=== PATIENT | male | born 1955 | race Caucasian/White ===

== ENCOUNTER 2022-09-30 07:10 | Outpatient (OUT) | payer OTHER, SELFPAY ==
[2022-09-30 08:20] LABS: Creatinine Urine Random 194.69 mg/dL (20.00-300.00); Microalbum Creatinine Ratio Ur 18.4 mg/g (0.0-29.9); Microalbumin Urine Random 3.6 mg/dL (<=30.0)
[2022-09-30 08:25] LABS: Alanine Aminotransferase 29 U/L (16-63); Albumin Globulin Ratio 1.1; Albumin Level 3.9 g/dL (3.4-5.0); Alkaline Phosphatase 54 U/L (46-116); Aspartate Amino Transferase 20 U/L (15-37); Bilirubin Direct 0.1 mg/dL (0.0-0.2); Bilirubin Total 0.4 mg/dL (0.2-1.0); Globulin 3.7 g/dL; Total Protein 7.6 g/dL (6.4-8.2)
[2022-10-01 13:09] LABS: C-Peptide, Serum 0.1 ng/mL (1.1-4.4)
== END 2022-09-30 07:11 ==
PROVIDERS: PCP Family Medicine; Visit Provider Internal Medicine
DX: E11.49 Type 2 diabetes mellitus with other diabetic neurological complication (principal); Z79.4 Long term (current) use of insulin; E55.9 Vitamin D deficiency, unspecified
CPT/HCPCS: 36415; 80076; 82043; 82306; 82570; 84681

== ENCOUNTER 2023-01-19 07:10 | Outpatient (OUT) | payer OTHER, SELFPAY ==
[2023-01-19 07:59] LABS: Alanine Aminotransferase 20 U/L (16-63); Albumin Globulin Ratio 1.1; Albumin Level 3.6 g/dL (3.4-5.0); Alkaline Phosphatase 53 U/L (46-116); Anion Gap 9.5; Aspartate Amino Transferase 12 U/L (15-37); BUN Creatinine Ratio 13.1; Bilirubin Total 0.3 mg/dL (0.2-1.0); Calcium 8.8 mg/dL (8.5-10.1); Chloride 100 mmol/L (98-107); Chol HDL Ratio 2.6; Cholesterol 123 mg/dL (<=200); Estimated GFR (African America >60 (>=60); Estimated GFR (Non-African Ame 59 (>=60); Globulin 3.3 g/dL; Glucose 261 mg/dL (74-106); HDL Cholesterol 48 mg/dL (40-60); LDL Cholesterol Calculated 64.8 mg/dL; Potassium 4.5 mmol/L (3.5-5.1); Sodium 135 mmol/L (136-145); Total Protein 6.9 g/dL (6.4-8.2); Triglycerides 51 mg/dL (<=150); VLDL CHOLESTEROL 10.2 mg/dL
== END 2023-01-19 07:11 | disposition home or self-care (01) ==
LOC: LAB 07:12
PROVIDERS: PCP Family Medicine; Visit Provider Internal Medicine Interventional Cardiology
DX: I25.10 Atherosclerotic heart disease of native coronary artery without angina pectoris (principal)
CPT/HCPCS: 36415; 80053; 80061

== ENCOUNTER 2023-01-30 19:35 | Emergency (ER) | payer OTHER, SELFPAY ==
[2023-01-30 19:48] VITALS: BP 152/86; PULSE 78; RESP 18; TEMP 37.3; O2SAT 96; BMI 26.5
[2023-01-30 19:54] VITALS: PULSE 73
--- NOTE | 2023-01-30 20:01 | ECG_ITS ---
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
--- NOTE | 2023-01-30 20:01 | XR_ITS ---
The [address] [address] Patient Name: BRODY WEST MRN: [id number] date: 1955 Sex: M Assigned Patient Location: ER Current Patient Location: ER Accession/Order Number: [id number] Exam Date: 01/30/2023 21:20 Report Date: 01/30/2023 21:34 At the request of: AYALA JOHNSON Procedure: XR chest 1V EXAM: XR chest 1V HISTORY: sob COMPARISON: None. TECHNIQUE: Single AP radiograph of the chest FINDINGS: Linear opacities at the lung bases favored to represent atelectasis. No pneumothorax or effusion. Mild cardiac prominence. No acute osseous abnormality. XR/XR chest 1V IMPRESSION: Linear bibasilar opacities favored to represent atelectasis. Otherwise, no acute cardiopulmonary process. Electronically authenticated by: VAN LANGLEY Date: 01/30/2023 21:34
--- NOTE | 2023-01-30 20:02 | ED.GENADUL1 ---
HPI - General Adult General Chief complaint: Shortness of Breath/Dyspnea Stated complaint: sob covid + Time Seen by Provider: 01/30/23 19:45 Source: patient Mode of arrival: walk-in Limitations: no limitations History of Present Illness HPI narrative: 68-year-old male to the emergency department she complained of mild shortness of breath after developing Coban. He reports symptoms started forty-eight hours ago. Patient reports he is vaccinated ?6 for COVID. He reports that he has malaise, body aches, low-grade fever, cough, sinus pressure, nasal congestion. He reports that he has a aching pain throughout his chest is worse when coughing or deep inspiration. He denies Asthma or chronic obstructive pulmonary disease. He reports he is currently in cardiac rehab, no stent or cardiac intervention in the past. Related Data Home Medications Medication Instructions Recorded Confirmed azelastine 137 mcg (0.1 %) nasal intranasal 01/30/23 spray aerosol ezetimibe 10 mg tablet mg 01/30/23 insulin aspart U-100 100 unit/mL subcut 01/30/23 (3 mL) subcutaneous pen (Novolog FlexPen U-100 Insulin aspart) insulin detemir U-100 100 unit/mL 1 unit subcut DAILY 01/30/23 01/30/23 (3 mL) subcutaneous pen (Levemir FlexPen) metformin 500 mg tablet mg 01/30/23 tadalafil 5 mg tablet mg 01/30/23 Allergies Allergy/AdvReac Type Severity Reaction Status Date / Time No Known Drug Allergies Allergy Verified 01/30/23 19:52 Review of Systems ROS Status of ROS 10 or more systems reviewed and unremarkable except as noted in history and below [facility] Social History Smoking status: Never smoker Exam Narrative Exam Narrative: VITALS: I have reviewed the triage vital signs. GENERAL: Well developed, well appearing adult in no acute distress. NEURO: Alert and oriented. Moves all extremities. Face is symmetric and expressive. EYES: PERRL. No scleral icterus or conjunctival injection. No discharge. HENT: Normocephalic, atraumatic. Hearing is grossly intact. Nares grossly patent and without discharge. Mucous membranes moist. NECK: No JVD. Patient moves neck without restriction. CARDIO: Rhythm regular. Normal rate. No murmur, rub, or gallop. Pulses equal bilaterally in the upper and lower extremity. No lower extremity edema. PULM: Lungs clear to auscultation in all wells. No wheezes, rales, or rhonchi. No conversational dyspnea. No splinting, stridor, or accessory muscle use. GI/: Abdomen is soft and non-tender. Normoactive bowel sounds. EXTREMITIES: Symmetric muscle bulk. No joint swelling. No clubbing, cyanosis, or deformity. SKIN: Warm and dry. Normal turgor. No rash or lesions appreciated. PSYCH: Mood, affect, and interaction is appropriate to the setting. Constitutional Vital Signs, click to edit/add: Last Vital Signs Temp 98.9 F 01/30/23 22:00 Pulse 69 01/30/23 22:00 Resp 20 01/30/23 22:00 BP 147/80 H 01/30/23 22:00 Pulse Ox 95 01/30/23 22:00 O2 Del Method Room Air 01/30/23 22:00 Course Vital Signs Vital signs: Vital Signs Temperature 99.2 F 01/30/23 19:48 Pulse Rate 78 01/30/23 19:48 Respiratory Rate 18 01/30/23 19:48 Blood Pressure 152/86 H 01/30/23 19:48 Pulse Oximetry 96 01/30/23 19:48 Temperature 98.9 F 01/30/23 22:00 Pulse Rate 69 01/30/23 22:00 Respiratory Rate 20 01/30/23 22:00 Blood Pressure 147/80 H 01/30/23 22:00 Pulse Oximetry 95 01/30/23 22:00 Oxygen Delivery Method Room Air 01/30/23 22:00 Medical Decision Making [facility] Narrative Medical decision making narrative: [facility] Data External documents reviewed: Not applicable My EKG interpretation: Interpreted as below My CT interpretation: Not applicable My X-ray interpretation: Reviewed, as well as bulla My Ultrasound interpretation: Not applicable Decision rules/scores evaluated: Not applicable Discussed with: Not applicable Treatment and Disposition ED Course: Appearing 68-year-old male to the emergency department with chief complaint of shortness of breath, flulike symptoms in the setting of recent cocaine-positive status. Vital stable, patient is afebrile. He is in no respiratory distress. His lungs are clear. We'll obtain basic labs, cardiac enzymes, chest x-ray. EKG is without any ischemic changes. I believe his symptoms are consistent with pneumonitis. Patient agrees with this plan. Troponin and repeat are both negative. As a hyponatremia. He is hyperglycemic without evidence of DKA. Chest x-ray without acute findings. Patient remained in no respiratory distress. He feels much improved after fluids. I believe is appropriate for outpatient follow-up with his doctor. We discussed the risks and benefits of Paxlovid. He decided against it at this time. Return impressions were discussed. I would like his sodium checked again early next week to make sure that is not decreasing. He will manage his blood glucose per his usual protocol at home. Return precautions were discussed. All questions were answered. The patient was discharged home. Shared decision making: As above Code status: Not addressed during this visit Medical Records Medical records reviewed: Yes I reviewed the patient's medical records Lab Data Lab results reviewed: Yes I reviewed the patient's lab results Labs: Lab Results 01/30/23 01/30/23 Range/Units 20:12 22:15 WBC 4.2 (4.0-11.0) 10^3/uL RBC 3.87 L (4.70-6.10) 10^6/uL Hgb 12.1 L (14.0-18.0) g/dL Hct 36.0 L (42.0-54.0) % MCV 93.0 (80.0-94.0) fL MCH 31.3 (25.9-34.0) pg MCHC 33.6 (29.9-35.2) g/dL RDW 12.3 (11.0-15.0) % Plt Count 208 (150-450) 10^3/uL MPV 10.0 (9.5-13.5) fL Neut % (Auto) 68.0 (43.0-75.0) % Lymph % (Auto) 14.2 L (20.5-60.0) % [place] % (Auto) 15.4 H (1.7-12.0) % Eos % (Auto) 1.2 (0.9-7.0) % Baso % (Auto) 0.7 (0.2-2.0) % Neut # (Auto) 2.8 (1.4-6.5) 10^3/uL Lymph # (Auto) 0.6 L (1.2-3.8) 10^3/uL [place] # (Auto) 0.6 (0.3-0.8) 10^3/uL Eos # (Auto) 0.1 (0.0-0.7) 10^3/uL Baso # (Auto) 0.0 (0.0-0.1) 10^3/uL Abs Immat Gran (auto) 0.02 (0.00-0.03) 10^3/uL Imm/Tot Granulo (auto) 0.5 (0.0-0.5) % Sodium 128 L (136-145) mmol/L Potassium 3.8 (3.5-5.1) mmol/L Chloride 96 L (98-107) mmol/L Carbon Dioxide 28.4 (21.0-32.0) mmol/L Anion Gap 7.4 BUN 9.0 (7.0-18.0) mg/dL Creatinine 1.13 (0.70-1.30) mg/dL Est GFR ( Amer) >60 (>=60) Est GFR (Non-Af Amer) >60 (>=60) BUN/Creatinine Ratio 8.0 Glucose 257 H (74-106) mg/dL Calcium 8.0 L (8.5-10.1) mg/dL Troponin I High Sens 11.9 12.1 (4.0-76.1) pg/mL ECG Data Attestation: I personally reviewed and interpreted this ECG as follows: (Normal sinus rhythm at a rate of seventy-three. No STEMI. No acute ischemic changes. Normal QTC.) Discharge Plan Discharge Chief Complaint: Shortness of Breath/Dyspnea Clinical Impression: COVID-19, Acute hyperglycemia, Acute hyponatremia Patient Disposition: Home, Self-Care Time of Disposition Decision: 23:08 Condition: Good Mode of Transportation: Private Vehicle Prescriptions / Home Meds: No Action azelastine 137 mcg (0.1 %) aerosol,spray INTRANASAL ezetimibe 10 mg tablet insulin aspart U-100 [Novolog FlexPen U-100 Insulin] 100 unit/mL (3 mL) insulin pen SUBCUT Levemir FlexPen 100 unit/mL (3 mL) insulin pen 1 unit subcut DAILY metformin 500 mg tablet tadalafil 5 mg tablet Instructions: Hyponatremia (ED), Diabetic Hyperglycemia (ED), COVID-19 (Coronavirus Disease 2019) (ED) Stand Alone Forms: Portal Instructions Referrals: Chaz Morelos MD [Primary Care Provider] - 1 week (Follow-up with Dr. Morelos via telephone call on Thursday. Continue to manage your blood sugar per usual protocol at home. I would like Dr. Morelos to check her sodium level again early next week to ensure that it is increasing. Return to the Emergency Department with worsening symptoms as discussed including worsening shortness of breath, chest pain. )
[2023-01-30 20:32] LABS: Basophils Percent Auto 0.7 % (0.2-2.0); Eosinophils Absolute Auto 0.1 10^3/uL (0.0-0.7); Eosinophils Percent Auto 1.2 % (0.9-7.0); Hemoglobin 12.1 g/dL (14.0-18.0); Immature Granulocytes Abs Auto 0.02 10^3/uL (0.00-0.03); Immature Granulocytes Pct Auto 0.5 % (0.0-0.5); Lymphocytes Absolute Auto 0.6 10^3/uL (1.2-3.8); Lymphocytes Percent Auto 14.2 % (20.5-60.0); Mean Corpuscular HGB Conc 33.6 g/dL (29.9-35.2); Mean Corpuscular Hemoglobin 31.3 pg (25.9-34.0); Monocytes Absolute Auto 0.6 10^3/uL (0.3-0.8); Monocytes Percent Auto 15.4 % (1.7-12.0); Neutrophils Absolute Auto 2.8 10^3/uL (1.4-6.5); Platelet Count 208 10^3/uL (150-450); Red Blood Count 3.87 10^6/uL (4.70-6.10); Red Cell Distribution Width 12.3 % (11.0-15.0); White Blood Count 4.2 10^3/uL (4.0-11.0)
[2023-01-30 20:51] VITALS: BP 157/80; PULSE 70; RESP 20; O2SAT 95
[2023-01-30 21:18] LABS: Anion Gap 7.4; Carbon Dioxide 28.4 mmol/L (21.0-32.0); Chloride 96 mmol/L (98-107); Estimated GFR (African America >60 (>=60); Estimated GFR (Non-African Ame >60 (>=60); Glucose 257 mg/dL (74-106); Potassium 3.8 mmol/L (3.5-5.1); Sodium 128 mmol/L (136-145); Troponin I High Sensitivity 11.9 pg/mL (4.0-76.1)
[2023-01-30] MEDS: 0.9 % SODIUM CHLORIDE 1,000 ML 999 ML IV (21:58)
[2023-01-30 22:00] VITALS: BP 147/80; PULSE 69; RESP 20; TEMP 37.2; O2SAT 95
[2023-01-30 22:57] LABS: Troponin I High Sensitivity 12.1 pg/mL (4.0-76.1)
[2023-01-30 23:30] VITALS: BP 149/78; PULSE 67; RESP 18; O2SAT 97
== END 2023-01-30 23:38 | disposition home or self-care (01) ==
PROVIDERS: Emergency Provider Student in an Organized Health Care Education/Training Program; PCP Family Medicine
DX: U07.1 COVID-19 (principal); E87.1 Hypo-osmolality and hyponatremia; R73.9 Hyperglycemia, unspecified; Z79.899 Other long term (current) drug therapy; Z79.4 Long term (current) use of insulin; Z79.84 Long term (current) use of oral hypoglycemic drugs
CPT/HCPCS: 36415; 71045; 80048; 84484; 85025; 93005; 99285

== ENCOUNTER 2023-05-28 07:03 | Outpatient (OUT) | payer MEDICARE, OTHER, SELFPAY ==
[2023-05-28 12:01] LABS: Prostate Specific Antigen Scrn 1.89 ng/mL (<=4.00)
== END 2023-05-28 07:04 | disposition home or self-care (01) ==
PROVIDERS: PCP Family Medicine; Visit Provider Family Medicine
DX: E10.3293 Type 1 diabetes mellitus with mild nonproliferative diabetic retinopathy without macular edema, bilateral (principal); Z12.5 Encounter for screening for malignant neoplasm of prostate
CPT/HCPCS: 36415; G0103

== ENCOUNTER 2023-10-07 07:37 | Outpatient (OUT) | payer MEDICARE, OTHER, SELFPAY ==
--- OUTSIDE RECORDS SUMMARY | 2023-10-07 07:42 | XMS_ITS | CCD ---
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 Name Role Phone PHYSICIAN, DEFAULT Unavailable Unavailable PHYSICIAN, DEFAULT Unavailable Unavailable HOY, CINTHYA Unavailable Unavailable CELIO, QUINN Admitting Unavailable CELIO, QUINN Attending Unavailable HOY ., DR MENDES Primary Care Unavailable CELIO, QUINN Consulting Unavailable CELIO, QUINN Admitting Unavailable CELIO, QUINN Attending Unavailable HOY ., DR MENDES Primary Care Unavailable CELIO, QUINN Consulting Unavailable CELIO, QUINN Admitting Unavailable CELIO, QUINN Attending Unavailable HOY ., DR MENDES Primary Care Unavailable [place], DR JOSEPH Moyer Consulting Unavailable CELIO, QUINN Consulting Unavailable MOUKARBEL, DR TOLBERT Admitting Unavailable MOUKARBEL, DR TOLBERT Attending Unavailable HOY ., DR MENDES Primary Care Unavailable MOUKARBEL, DR TOLBERT Consulting Unavailable MOUKARBEL, DR TOLBERT Admitting Unavailable MOUKARBEL, DR TOLBERT Attending Unavailable HOY ., DR MENDES Primary Care Unavailable MOUKARBEL, DR TOLBERT Consulting Unavailable HOY ., DR MENDES Admitting Unavailable HOY ., DR MENDES Attending Unavailable HOY ., DR MENDES Primary Care Unavailable HOY ., DR MENDES Consulting Unavailable MOUKARBEL, DR TOLBERT Admitting Unavailable MOUKARBEL, DR TOLBERT Attending Unavailable HOY ., DR MENDES Primary Care Unavailable MOUKARBEL, DR TOLBERT Consulting Unavailable ELBA SUTTON Attending Unavailable CELIO, QUINN Attending Unavailable Unavailable Unavailable Unavailable Allergies Allergy Classification Reported Allergen(s) Allergy Type Date of Onset Reaction(s) Facility (2 sources) Sulfonamides (Antibiotic) Drug allergy (disorder) 03-23-2013 [facility] Rep[facility] (1 source) atorvastatin; Translations: [ATORVASTATIN] Drug Allergy 06-26-2023 [facility] Rep[facility] (1 source) rosuvastatin; Translations: [ROSUVASTATIN] Drug Allergy 06-26-2023 [facility] Rep[facility] Problems Active Problems Problem Classification Problem Date Documented Da te Episodic/Chronic Cardiac dysrhythmias (2 sources) Ventricular premature depolarization; Translations: [Ventricular premature depolarization] Onset: 06-26-2023 Chronic Coronary atherosclerosis and other heart disease (6 sources) Other forms of angina pectoris; Translations: [Atherosclerotic heart disease of [place] coronary artery without angina pectoris] Onset: 04-23-2022 Chronic Disorders of lipid metabolism (6 sources) Mixed hyperlipidemia; Translations: [MIXED HYPERLIPIDEMIA] Onset: 02-19-2022 Chronic Other lower respiratory disease (6 sources) Other forms of dyspnea; Translations: [OTHER FORMS OF DYSPNEA] Onset: 02-19-2022 Episodic Other screening for suspected conditions (not mental disorders or infectious disease) (4 sources) Abnormal result of other cardiovascular function study; Translations: [ABNORM RESULT OTH CV FUNCTION STUDY] Onset: 03-31-2022 Episodic Residual codes; unclassified (2 sources) Other specified health status; Translations: [Other specified health status] Onset: 06-26-2023 Episodic Unclassified (3 sources) CONTACT W/AND (SUSP) EXPOS COVID-19; Translations: [CONTACT W/AND (SUSP) EXPOS COVID-19] Onset: 07-19-2021 Unclassified (2 sources) Hypoglycemia, unspecified; Translations: [Hypoglycemia, unspecified] Onset: 08-02-2023 Past or Other Problems Problem Classification Problem Date Documented Da te Episodic/Chronic Other lower respiratory disease (4 sources) Dyspnea, unspecified; Translations: [DYSPNEA UNSPECIFIED] Onset: 03-05-2022 Episodic Unclassified (1 source) CONTACT W/AND (SUSP) EXPOS COVID-19; Translations: [CONTACT W/AND (SUSP) EXPOS COVID-19] Onset: 07-15-2021 Results Test Name Value Interpretation Reference Range Facility 36on 08-28-[address] Garcia, restart patient on simvastatin 40mg daily and see if he qualifies for Repatha with his insurance. RX's sent [facility]. Patient made aware. Normal [facility] BEDSIDE GLUCOSEon 08-02-2023 Glucose [Mass/Vol] 266 mg/dL High 70-99 [facility] Comment on above: Performed By: #### N PGLU #### Scarlett Reynolds ([id number]) [facility] [address] [place] [address] Glucose [Mass/Vol] 143 mg/dL High 70-99 [facility] Comment on above: Performed By: #### N PGLU #### Scarlett Reynolds ([id number]) [facility] [address] [place] [address] ED PROV NOTEon 08-02-2023 ED PROV NOTE Flap Maker Authentication Interface Message Text [facility] EMERGENCY DEPARTMENT ED Encounter Arrival Date: 08/02/23405 Brody West : 1955 No address on file. CSN: [id number] DAVID: [id number] EMERGENCY DEPARTMENT - GENERAL NOTE CHIEF COMPLAINT Chief Complaint Patient presents with Hypoglycemia HPI Brody West is a 68 year old male who presents hypoglycemic reaction. Patient was acting weird when he woke up his , checked his sugar it was 44. Called EMS. Patient was given orange juice, blood sugar went back up, signed refusal. Shortly thereafter was having a Peter[employer] jelly sandwich and then his blood sugar went down again. They were concerned and called EMS back. Patient states he has not been sick. Denies fever, chills, cough, congestion. Patient states he did eat last night which was been normal. Patient states he might of missed stopped his long and short acting insulin last night when he took it. Patient states that his doctor on his last visit says that he was not getting a little bit concerned with his lows but his A1c has been decreasing and in good range now REVIEW OF SYSTEMS As per the HPI PAST MEDICAL HISTORY No past medical history on file. SURGICAL HISTORY No past surgical history on file. CURRENT MEDICATIONS No current outpatient medications ALLERGIES Not on File FAMILY HISTORY No family history on file. . SOCIAL HISTORY Social History Socioeconomic History Marital status: Spouse name: Not on file Number of children: Not on file Years of education: Not on file Highest education level: Not on file Occupational History Not on file Tobacco Use Smoking status: Not on file Smokeless tobacco: Not on file Substance and Sexual Activity Alcohol use: Not on file Drug use: Not on file Sexual activity: Not on file Other Topics Concern Not on file Social History Narrative Not on file Social Determinants of Health Financial Resource Strain: Not on file Food Insecurity: Unknown (08/02/2023) Food Insecurities Worried about running out of food: Not on file Food Bought: Not on file Transportation Needs: Unknown (08/02/2023) Transportation Worried about transportation: Not on file Physical Activity: Not on file Stress: Not on file Social Connections: Not on file Intimate Partner Violence: Unknown (08/02/2023) Interpersonal Safety Feel physically or emotionally unsafe where currently live: Not on file Harm by anyone: Not on file Emotionally Harmed: Not on file Housing Stability: Unknown (08/02/2023) Housing/Utilities Worried about losing home: Not on file Stayed outside house: Not on file Unable to get utilities: Not on file PHYSICAL EXAM VITAL SIGNS: ED Triage Vitals Enc Vitals Group BP Pulse Resp Temp Temp src SpO2 Weight Height Head Circumference Peak Flow Pain Score Pain Loc Pain Edu? Excl. in GC? Constitutional: Well developed, Moderate acute distress, Non-toxic appearance HENT: Normocephalic, Atraumatic, Bilateral external ears normal, Oropharynx moist, No oral exudates, Nose normal. Neck: Normal range of motion, No tenderness, Supple, No stridor Eyes: PERRL, EOMI, Conjunctiva normal, No discharge Respiratory: Normal breath sounds, No respiratory distress, No wheezing, No chest tenderness Cardiovascular: Normal heart rate, Normal rhythm, No murmurs, No rubs, No gallops GI: Bowel sounds normal, Soft, No tenderness, No masses, No pulsatile masses Musculoskeletal: Intact distal pulses, No edema, No tenderness, No cyanosis, No clubbing. Good range of motion in all major joints. No tenderness to palpation or major deformities noted Back:- No tenderness, no CVA tenderness Integument: Warm, Dry, No erythema, No rash or lesions Neurologic: Alert & oriented x 3, CN 2-12 GI, Normal motor function, Normal sensory function, No focal deficits noted Psychiatric: Affect normal, Judgment normal, Mood normal LABORATORY (Labs relevant lab values) Results for orders placed or performed during the hospital encounter of 08/02/23 (from the past 24 hour(s)) POCT Bedside Glucose Result Value Ref Range BEDSIDE GLUCOSE 143 (H) 70 - 99 mg/dL POCT Bedside Glucose Result Value Ref Range BEDSIDE GLUCOSE 266 (H) 70 - 99 mg/dL RADIOLOGY (Radiology images reviewed below) No orders to display ED COURSE & MEDICAL DECISION MAKING Initial Impression: Brody West is a 68 year oldmale with chief concern of Chief Complaint Patient presents with Hypoglycemia Differential Diagnosis: Hypoglycemia, sepsis, CT Patient has the following Problem List: There are no problems to display for this patient. External Records: External records reviewed and show: OARRS/INSPECT/MARYANN have not been reviewed for this patient. Work up and therapy ordered during this encounter: Pertinent Labs & Imaging studies reviewed. (See EDCourse for det (more content not included)... Normal [facility] Office Visiton 06-26-2023 Follow-up visit [id number] Vikash West as L 1955 M Date Provider Department Center 06/26/2023 QUINN SAHNI [facility] Family History Problem Relation Age of Onset ALS Mother Coronary artery disease Father Other Father Coronary artery disease Brother Other Brother Family Status - Relation Status Age at Mother Father Brother Level of Service:12696 NC OFFICE/OUTPATIENT ESTABLISHED MOD MDM 30 MIN Normal [facility] Orders Onlyon 06-08-2023 Orders Only [id number] Vikash West as L 1955 M Date Provider Department Center 06/08/2023 UCHE TRAORE HARJINDER [facility] Family History Problem Relation Age of Onset ALS Mother Coronary artery disease Father Other Father Coronary artery disease Brother Other Brother Family Status - Relation Status Age at Mother Father Brother Normal [facility] LIPID PROFILEon 07-01-2022 CHOL-HDL RATIO NORM SEE BELOW Normal [facility] Comment on above: Result Comment: 3.3 - 4.4 LOW RISK 4.4 - 7.1 AVERAGE RISK 7.1 - 11.0 MODERATE RISK >11.0 HIGH RISK Performed By: #### L IPID #### [facility] [address] [address] [address] Julio Leon Cholesterol [Mass/Vol] 109 mg/dL Normal <=200 [facility] Comment on above: Performed By: #### L IPID #### [facility] [address] [address] [address] Julio Leon Cholesterol in HDL [Mass/Vol] 48 mg/dL Normal 40-60 [facility] Comment on above: Performed By: #### L IPID #### [facility] [address] [address] [address] Julio Leon Cholesterol in LDL [Mass/Vol] 49.6 mg/dL Normal [facility] Comment on above: Performed By: #### L IPID #### [facility] [address] [address] [address] Julio Leon Cholesterol.total/C holesterol in HDL [Mass ratio] 2.3 {ratio} Normal [facility] Comment on above: Performed By: #### L IPID #### [facility] [address] [place] [address] Dr. Julio Leon HDL NORMAL > or = 60 mg/dl - LO W CARDIOVASCULAR RISK <40 mg/dl - HIGH CARDIOVASCULAR RISK Normal [facility] Comment on above: Performed By: #### L IPID #### [facility] [address] [place] [address] Dr. Julio Leon LDL CALC NORMAL SEE BELOW Normal [facility] Comment on above: Result Comment: <100 mg/dl OPTIMAL 100 - 129 mg/dl NEAR OR ABOVE OPTIMAL 130 - 159 mg/dl BORDERLINE HIGH 160 - 189 mg/dl HIGH >190 mg/dl VERY HIGH Performed By: #### L IPID #### [facility] [address] [place] [address] Dr. Julio Leon Triglyceride [Mass/Vol] 57 mg/dL Normal <=150 [facility] Comment on above: Performed By: #### L IPID #### [facility] [address] [place] [address] Dr. Julio Leon VLDL CALC 11.4 mg/dL Normal [facility] Comment on above: Performed By: #### L IPID #### [facility] [address] [place] [address] Dr. Julio Leon CBC AUTO DIFFon 03-31-2022 BASO # 0.1 103/ul Normal 0.0-0.1 [facility] Comment on above: Performed By: #### C BC #### [facility] [address] [place] [address] Dr. Julio Leon Basophils/100 WBC (Bld) 1.4 % Normal 0.2-2.0 [facility] Comment on above: Performed By: #### C BC #### [facility] [address] [place] [address] Dr. Julio Leon EO # 0.1 103/ul Normal 0.0-0.7 [facility] Comment on above: Performed By: #### C BC #### [facility] [address] [place] [address] Dr. Julio Leon Eosinophils/100 WBC (Bld) 2.0 % Normal 0.9-7.0 [facility] Comment on above: Performed By: #### C BC #### [facility] [address] [place] [address] Dr. Julio Leon Erythrocyte distribution width (RBC) [Ratio] 12.5 % Normal 11.0-15.0 [facility] Comment on above: Performed By: #### C BC #### [facility] [address] [place] [address] Dr. Julio Leon Hematocrit (Bld) [Volume fraction] 43.0 % Normal 42.0-54.0 [facility] Comment on above: Performed By: #### C BC #### [facility] [address] [place] [address] Dr. Julio Leon Hemoglobin (Bld) [Mass/Vol] 14.1 g/dL Normal 14.0-18.0 [facility] Comment on above: Performed By: #### C BC #### [facility] [address] [place] [address] Dr. Julio Leon IG # 0.01 10e3/ul Normal 0.00-0.03 [facility] Comment on above: Performed By: #### C BC #### [facility] [address] [place] [address] Dr. Julio Leon IG % 0.2 % Normal 0.0-0.5 [facility] Comment on above: Performed By: #### C BC #### [facility] [address] [place] [address] Dr. Julio Leon LYMPH # 1.4 103/ul Normal 1.2-3.8 [facility] Comment on above: Performed By: #### C BC #### [facility] [address] [place] [address] Dr. Julio Leon Lymphocytes/100 WBC (Bld) 28.1 % Normal 20.5-60.0 [facility] Comment on above: Performed By: #### C BC #### [facility] [address] [place] [address] Dr. Julio Leon MANUAL DIFF REQ NO Normal [facility] Comment on above: Performed By: #### C BC #### [facility] [address] [place] [address] Dr. Julio Leon MCH (RBC) [Entitic mass] 30.1 pg Normal 25.9-34.0 [facility] Comment on above: Performed By: #### C BC #### [facility] [address] [place] [address] Dr. Julio Leon MCHC (RBC) [Mass/Vol] 32.8 g/dL Normal 29.9-35.2 [facility] Comment on above: Performed By: #### C BC #### [facility] [address] [place] [address] Dr. Julio Leon MCV (RBC) [Entitic vol] 91.9 fL Normal 80.0-94.0 [facility] Comment on above: Performed By: #### C BC #### [facility] [address] [place] [address] Dr. Julio Leon MONO # 0.5 103/ul Normal 0.3-0.8 [facility] Comment on above: Performed By: #### C BC #### [facility] [address] [place] [address] Dr. Julio Leon Monocytes/100 WBC (Bld) 9.8 % Normal 1.7-12.0 [facility] Comment on above: Performed By: #### C BC #### [facility] [address] [place] [address] Dr. Julio Leon NEUT # 3.0 103/ul Normal 1.4-6.5 [facility] Comment on above: Performed By: #### C BC #### [facility] [address] [address] [address] Julio Leon Neutrophils/100 WBC (Bld) 58.5 % Normal 43.0-75.0 [facility] Comment on above: Performed By: #### C BC #### [facility] [address] [address] [address] Julio Leon Platelet mean volume (Bld) [Entitic vol] 9.6 fL Normal 9.5-13.5 [facility] Comment on above: Performed By: #### C BC #### [facility] [address] [address] [address] Julio Leon PLT 267 103/ul Normal 150-450 [facility] Comment on above: Performed By: #### C BC #### [facility] [address] [address] [address] Julio Leon RBC 4.68 106/ul Critically low 4.70-6.10 [facility] Comment on above: Performed By: #### C BC #### [facility] [address] [address] [address] Julio Leon WBC 5.1 103/ul Normal 4.0-11.0 [facility] Comment on above: Performed By: #### C BC #### [facility] [address] [address] [address] Julio Leon PROF CHEM 8 (BAS METB)on Anion gap [Moles/Vol] 11.6 mmol/L Normal [facility] Comment on above: Performed By: #### B MP #### [facility] [address] [address] [address] Julio Leon Calcium [Mass/Vol] 9.3 mg/dL Normal 8.5-10.1 [facility] Comment on above: Performed By: #### B MP #### [facility] [address] [address] [address] Julio Leon Chloride [Moles/Vol] 101 mmol/L Normal 98-107 [facility] Comment on above: Performed By: #### B MP #### [facility] [address] [address] [address] Julio Leon CO2 [Moles/Vol] 27.8 mmol/L Normal 21.0-32.0 [facility] Comment on above: Performed By: #### B MP #### [facility] [address] [address] [address] Julio Leon Creatinine [Mass/Vol] 0.95 mg/dL Normal 0.70-1.30 [facility] Comment on above: Performed By: #### B MP #### [facility] [address] [address] [address] Julio Leon EGFR-AF NICARAGUAN >60 Normal >=60 [facility] Comment on above: Performed By: #### B MP #### [facility] [address] [address] [address] Julio Leon EGFR-NON AF NICARAGUAN >60 Normal >=60 [facility] Comment on above: Performed By: #### B MP #### [facility] [address] [address] [address] Julio Leon Glucose [Mass/Vol] 80 mg/dL Normal 74-106 [facility] Comment on above: Performed By: #### B MP #### [facility] [address] [address] [address] Julio Leon Potassium [Moles/Vol] 4.4 mmol/L Normal 3.5-5.1 [facility] Comment on above: Performed By: #### B MP #### [facility] [address] [address] [address] Julio Leon Sodium [Moles/Vol] 136 mmol/L Normal 136-145 [facility] Comment on above: Performed By: #### B MP #### [facility] [address] [address] [address] Julio Leon Urea nitrogen [Mass/Vol] 14.0 mg/dL Normal 7.0-18.0 [facility] Comment on above: Performed By: #### B MP #### [facility] [address] [place], [place] [address] Dr. Julio Leon Urea nitrogen/Creatinine [Mass ratio] 14.7 mg/mg Normal [facility] Comment on above: Performed By: #### B #### [facility] [id number] Julio Leon NM STRESS/REST MULTIon 03-12 NM STRESS/REST MULTI Patient: BRODY WEST Exam Date: 03/12/2022 : 1955 Gender:M Ordering : QUINN PICKENS Admission #: [id number] Family : DR CINTHYA MATT . Order #: [id number] CLICK HERE TO VIEW EXAM RADIOLOGY REPORT PROCEDURE: RADIONUCLIDE IMAGING STRESS/REST MULTI COMPARISON: None. INDICATIONS: Dyspnea on exertion TECHNIQUE: Exam Description: Stress/Rest one day protocol gated SPECT Rest Imagin.1 mCi Tc-99m Cardiolite IV on 03/12/2022 Stress Imaging 29.9 mCi Tc-99m Cardiolite IV on 03/12/2022 Exercise Protocol: [place] Heart Rate (bpm): Rest: 65 Max: 131 PMHR: 84 Blood Pressure: Rest: 138/84 Max: 182/84 Exercise Time: Minutes: 9 Seconds: 01 Stage Reached: Stage: 3 Mets 10.1 Symptoms: Rest and peak stress ECG findings were abnormal and the exercise portion of the study was abnormal per attending physician Dr. Dhillon EKG changes. For more details please see separate cardiac stress test report. FINDINGS: QUALITY OF STUDY: Good. PERFUSION DEFECT: None. LOCATION: N/A SIZE: N/A. SEVERITY: N/A. TYPE: N/A. WALL MOTION: Normal. LV SIZE: Enlarged; EDV 123 mL. TID / TCD: None; 0.8 LVEF: Normal. Calculated EF 68%. SUMMARY: Myocardial perfusion imaging study has ABNORMAL findings. CONCLUSION: 1. No reversible ischemia 2. Borderline dilation of ventricle, end-diastolic volume 123 milliliters 3. Abnormal exercise test secondary to EKG changes Dictated by: Joseph Cramer MD on 03/12/2022 at 14:19 Approved by: Joseph Cramer MD on 03/12/2022 at 14:20 Normal [facility] ECHOCARDIO M/2D COMPLETEon 1 05-05-2021 ECHOCARDIO M/2D COMPLETE Patient: BRODY WEST Exam Date: 03/05/2022 : 1955 Gender:M Ordering : QUINN PICKENS Admission #: [id number] Family : DR HENLEYLAS SHAKA . Order #: [id number] CLICK HERE TO VIEW EXAM ECHOCARDIOGRAM REPORT PROCEDURE: CARDIO PULMONARY ECHOCARDIO M/2D COMP INDICATIONS: CRANDALL COMPARISON: None. DESCRIPTION: COMPLETE ECHOCARDIOGRAM Real-time transthoracic echocardiography with 2D, M-mode, spectral and color flow Doppler performed. QUALITY: Technical quality was adequate. 71 186# 142/78 HR 60 Isolated PVCs noted during exam. LEFT VENTRICLE: Normal chamber size. Normal left ventricular wall thickness. Global left ventricular systolic function is normal. No regional wall motion abnormalities. LV EF: Visual estimation of left ventricular ejection fraction is 55%. DIASTOLIC: Normal diastolic function. ATRIAL SEPTUM: LEFT ATRIUM: Mild dilatation. RIGHT ATRIUM: Mild dilatation. RIGHT VENTRICLE: Normal chamber size. Normal right ventricular systolic function. TRICUSPID VALVE: Normal mobility and thickness. No stenosis with trivial regurgitation. Doppler studies reveal mildly (35-45) elevated right sided pressures. RVSP is 37 mmHg MITRAL VALVE: Normal mobility and thickness. No evidence of mitral valve stenosis. Trivial mitral regurgitation. AORTIC VALVE: Normal trileaflet appearance. No evidence of aortic valve stenosis. No aortic regurgitation. AORTIC ROOT: Normal diameter and appearance. PULMONIC VALVE: Normal thickness and mobility. No stenosis. Trivial regurgitation. PERICARDIUM: No evidence of pericardial effusion. IVC: Collapses with inspirations. IVC is normal in size. PLEURA: CONCLUSION: 1. Normal ventricular size and systolic function. 2. Normal diastolic function. 3. Mild biatrial dilatation. 4. No significant valvular dysfunction. 5. Mildly elevated right-sided pressures. 6. Isolated PVCs noted during the exam. Adult Echocardiography Procedure Report Left Ventricle LVEDD (3.7 - 5.6 cm): 4.67 cm LVESD (2.2 - 4.0 cm): 3.57 cm LVPW thickness (0.5 - 1.0 cm): 0.90 cm LVOT Max Gradient: 1.92 mm[Hg] Peak Velocity (LVOT): 0.69 m/s LVOT Diameter 2.48 cm Left Ventricular Ejection Fraction: 55 % Left Atrium LA Volume Index (2D A2C): 73.16 ml, 73.16 ml Left Atrium Systolic Dimension: 3.51 cm Mitral Valve MV E to A Ratio: 1.30, 1.51 Mitral Valve A-Wave Peak Velocity: 0.50 m/s, 0.45 m/s Mitral Valve E-Wave Peak Velocity: 0.65 m/s, 0.68 m/s Right Ventricle RV Internal Diastolic Dimension: 3.91 cm Aorta AO Root Diam: 3.21 cm Ascending Ao Diam: 3.21 cm Aortic Valve AoV Area (Peak Hermes): 2.96 cm2, 2.96 cm2 Peak Velocity(Antegrade Flow): 1.13 m/s Peak Gradient(Antegrade Flow): 5.09 mm[Hg] Tricuspid Valve Peak Velocity (Regurgitant Flow): 2.80 m/s, 2.90 m/s, 2.64 m/s Peak Velocity: 0.68 m/s Pulmonic Valve Peak Velocity: 1.22 m/s, 1.32 m/s Peak Gradient: 5.98 mm[Hg], 6.99 mm[Hg] Right Atrium Dictated by: Didi Garcia M.D. on 03/05/2022 at 18:07 Approved by: Didi Garcia M.D. on 03/05/2022 at 18:14 Normal [facility] CBC AUTO DIFFon 02-21-2022 BASO # 0.1 103/ul Normal 0.0-0.1 [facility] Comment on above: Performed By: #### C BC #### [facility] [address] [place] [address] Dr. Julio Leon Basophils/100 WBC (Bld) 1.2 % Normal 0.2-2.0 [facility] Comment on above: Performed By: #### C BC #### [facility] [address] [address] [address] Julio Leon EO # 0.1 103/ul Normal 0.0-0.7 [facility] Comment on above: Performed By: #### C BC #### [facility] [address] [address] [address] Julio Leon Eosinophils/100 WBC (Bld) 3.2 % Normal 0.9-7.0 [facility] Comment on above: Performed By: #### C BC #### [facility] [address] [place] [address] Dr. Julio Leon Erythrocyte distribution width (RBC) [Ratio] 12.7 % Normal 11.0-15.0 [facility] Comment on above: Performed By: #### C BC #### [facility] [address] [place] [address] Dr. Julio Leon Hematocrit (Bld) [Volume fraction] 39.3 % Critically low 42.0-54.0 [facility] Comment on above: Performed By: #### C BC #### [facility] [address] [place] [address] Dr. Julio Leon Hemoglobin (Bld) [Mass/Vol] 13.1 g/dL Critically low 14.0-18.0 [facility] Comment on above: Performed By: #### C BC #### [facility] [address] [place] [address] Dr. Julio Leon IG # 0.01 10e3/ul Normal 0.00-0.03 [facility] Comment on above: Performed By: #### C BC #### [facility] [address] [place] [address] Dr. Julio Leon IG % 0.2 % Normal 0.0-0.5 [facility] Comment on above: Performed By: #### C BC #### [facility] [address] [place] [address] Dr. Julio Leon LYMPH # 1.3 103/ul Normal 1.2-3.8 [facility] Comment on above: Performed By: #### C BC #### [facility] [address] [place] [address] Dr. Julio Leon Lymphocytes/100 WBC (Bld) 32.4 % Normal 20.5-60.0 [facility] Comment on above: Performed By: #### C BC #### [facility] [address] [place] [address] Dr. Julio Leon MANUAL DIFF REQ NO Normal [facility] Comment on above: Performed By: #### C BC #### [facility] [address] [place] [address] Dr. Julio Leon MCH (RBC) [Entitic mass] 30.8 pg Normal 25.9-34.0 [facility] Comment on above: Performed By: #### C BC #### [facility] [address] [place] [address] Dr. Julio Leon MCHC (RBC) [Mass/Vol] 33.3 g/dL Normal 29.9-35.2 [facility] Comment on above: Performed By: #### C BC #### [facility] [address] [place] [address] Dr. Julio Leon MCV (RBC) [Entitic vol] 92.3 fL Normal 80.0-94.0 [facility] Comment on above: Performed By: #### C BC #### [facility] [address] [place] [address] Dr. Julio Leon MONO # 0.5 103/ul Normal 0.3-0.8 [facility] Comment on above: Performed By: #### C BC #### [facility] [address] [place] [address] Dr. Julio Leon Monocytes/100 WBC (Bld) 11.2 % Normal 1.7-12.0 [facility] Comment on above: Performed By: #### C BC #### [facility] [address] [place] [address] Dr. Julio Leon NEUT # 2.1 103/ul Normal 1.4-6.5 [facility] Comment on above: Performed By: #### C BC #### [facility] [address] [place] [address] Dr. Julio Leon Neutrophils/100 WBC (Bld) 51.8 % Normal 43.0-75.0 [facility] Comment on above: Performed By: #### C BC #### [facility] [address] [place] [address] Dr. Julio Leon Platelet mean volume (Bld) [Entitic vol] 10.0 fL Normal 9.5-13.5 [facility] Comment on above: Performed By: #### C BC #### [facility] [address] [address] [address] Julio Leon PLT 232 103/ul Normal 150-450 [facility] Comment on above: Performed By: #### C BC #### [facility] [address] [address] [address] Julio Leon RBC 4.26 106/ul Critically low 4.70-6.10 [facility] Comment on above: Performed By: #### C BC #### [facility] [address] [address] [address] Julio Leon WBC 4.0 103/ul Normal 4.0-11.0 [facility] Comment on above: Performed By: #### C BC #### [facility] [address] [place] [address] Dr. Julio Leon LIPID PROFILEon 02-21-2022 CHOL-HDL RATIO NORM SEE BELOW Normal [facility] Comment on above: Result Comment: 3.3 - 4.4 LOW RISK 4.4 - 7.1 AVERAGE RISK 7.1 - 11.0 MODERATE RISK >11.0 HIGH RISK Performed By: #### L IPID, TSH, CMP #### [facility] [address] [place] [address] Dr. Julio Leon Cholesterol [Mass/Vol] 132 mg/dL Normal <=200 [facility] Comment on above: Performed By: #### L IPID, TSH, CMP #### [facility] [address] [place] [address] Dr. Julio Leon Cholesterol in HDL [Mass/Vol] 46 mg/dL Normal 40-60 [facility] Comment on above: Performed By: #### L IPID, TSH, CMP #### [facility] [address] [place] [address] Dr. Julio Leon Cholesterol in LDL [Mass/Vol] 71.4 mg/dL Normal [facility] Comment on above: Performed By: #### L IPID, TSH, CMP #### [facility] [address] [place] [address] Dr. Julio Leon Cholesterol.total/C holesterol in HDL [Mass ratio] 2.9 {ratio} Normal [facility] Comment on above: Performed By: #### L IPID, TSH, CMP #### [facility] [address] [address] [address] Julio Leon HDL NORMAL > or = 60 mg/dl - LO W CARDIOVASCULAR RISK <40 mg/dl - HIGH CARDIOVASCULAR RISK Normal [facility] Comment on above: Performed By: #### L IPID, TSH, CMP #### [facility] [address] [address] [address] Julio Leon LDL CALC NORMAL SEE BELOW Normal [facility] Comment on above: Result Comment: <100 mg/dl OPTIMAL 100 - 129 mg/dl NEAR OR ABOVE OPTIMAL 130 - 159 mg/dl BORDERLINE HIGH 160 - 189 mg/dl HIGH >190 mg/dl VERY HIGH Performed By: #### L IPID, TSH, CMP #### [facility] [address] [address] [address] Julio Leon Triglyceride [Mass/Vol] 73 mg/dL Normal <=150 [facility] Comment on above: Performed By: #### L IPID, TSH, CMP #### [facility] [address] [address] [address] Julio Leon VLDL CALC 14.6 mg/dL Normal [facility] Comment on above: Performed By: #### L IPID, TSH, CMP #### [facility] [address] [place] [address] Dr. Julio Leon PROF 14(COMP METB)on 022 Albumin [Mass/Vol] 3.7 g/dL Normal 3.4-5.0 [facility] Comment on above: Performed By: #### L IPID, TSH, CMP #### [facility] [address] [address] [address] Julio Leon Albumin/Globulin [Mass ratio] 1.1 {ratio} Normal [facility] Comment on above: Performed By: #### L IPID, TSH, CMP #### [facility] [address] [address] [address] Julio Leon ALP [Catalytic activity/Vol] 53 U/L Normal 46-116 [facility] Comment on above: Performed By: #### L IPID, TSH, CMP #### [facility] [address] [place] [address] Dr. Julio Leon ALT [Catalytic activity/Vol] 21 U/L Normal 16-63 [facility] Comment on above: Performed By: #### L IPID, TSH, CMP #### [facility] [address] [place] [address] Dr. Julio Leon Anion gap [Moles/Vol] 8.8 mmol/L Normal [facility] Comment on above: Performed By: #### L IPID, TSH, CMP #### [facility] [address] [place] [address] Dr. Julio Leon AST [Catalytic activity/Vol] 15 U/L Normal 15-37 [facility] Comment on above: Performed By: #### L IPID, TSH, CMP #### [facility] [address] [place] [address] Dr. Julio Leon Bilirubin [Mass/Vol] 0.5 mg/dL Normal 0.2-1.0 [facility] Comment on above: Performed By: #### L IPID, TSH, CMP #### [facility] [address] [place] [address] Dr. Julio Leon Calcium [Mass/Vol] 8.6 mg/dL Normal 8.5-10.1 [facility] Comment on above: Performed By: #### L IPID, TSH, CMP #### [facility] [address] [place] [address] Dr. Julio Leon Chloride [Moles/Vol] 104 mmol/L Normal 98-107 [facility] Comment on above: Performed By: #### L IPID, TSH, CMP #### [facility] [address] [place] [address] Dr. Julio Leon CO2 [Moles/Vol] 31.3 mmol/L Normal 21.0-32.0 [facility] Comment on above: Performed By: #### L IPID, TSH, CMP #### [facility] [address] [address] [address] Julio Leon Creatinine [Mass/Vol] 1.03 mg/dL Normal 0.70-1.30 [facility] Comment on above: Performed By: #### L IPID, TSH, CMP #### [facility] [address] [address] [address] Julio Leon EGFR-AF NICARAGUAN >60 Normal >=60 [facility] Comment on above: Performed By: #### L IPID, TSH, CMP #### [facility] [address] [address] [address] Julio Leon EGFR-NON AF NICARAGUAN >60 Normal >=60 [facility] Comment on above: Performed By: #### L IPID, TSH, CMP #### [facility] [address] [place] [address] Dr. Julio Leon Globulin (S) [Mass/Vol] 3.5 g/dL Normal [facility] Comment on above: Performed By: #### L IPID, TSH, CMP #### [facility] [address] [place] [address] Dr. Julio Leon Glucose [Mass/Vol] 78 mg/dL Normal 74-106 [facility] Comment on above: Performed By: #### L IPID, TSH, CMP #### [facility] [address] [place] [address] Dr. Julio Leon Potassium [Moles/Vol] 4.1 mmol/L Normal 3.5-5.1 [facility] Comment on above: Performed By: #### L IPID, TSH, CMP #### [facility] [address] [place] [address] Dr. Julio Leon Protein [Mass/Vol] 7.2 g/dL Normal 6.4-8.2 [facility] Comment on above: Performed By: #### L IPID, TSH, CMP #### [facility] [address] [place] [address] Dr. Julio Leon Sodium [Moles/Vol] 140 mmol/L Normal 136-145 [facility] Comment on above: Performed By: #### L IPID, TSH, CMP #### [facility] [address] [place], [place] [address] Dr. Julio Leon Urea nitrogen [Mass/Vol] 12.0 mg/dL Normal 7.0-18.0 [facility] Comment on above: Performed By: #### L IPID, TSH, CMP #### [facility] [address] [place], [place] [address] Dr. Julio Leon Urea nitrogen/Creatinine [Mass ratio] 11.7 mg/mg Normal [facility] Comment on above: Performed By: #### L IPID, TSH, CMP #### [facility] [address] [place], [place] [address] Dr. Julio Leon TSHon 02-21-2022 TSH 1.278 uIU/mL Normal 0.358-3.740 [facility] Comment on above: Performed By: #### L IPID, TSH, CMP ####[facility] [id number] [place], [place] [address]FoDr. Julio Leon Covid-19 PCR (CVDTBH)on 06-26 SARS-CoV-2 (COVID-19) RNA OLIMPIA+probe Ql (Unsp spec) Not detected Normal NOT DETECTED [facility] Comment on above: Result Comment: When diagnostic testing is negative, the possibility of a false negative should be considered in the context of a patient's recent exposures and the presence of clinical signs and symptoms consistent with SARS-CoV-2. This test is not yet approved or cleared by the [place] Food and Drug Administration (FDA). This test was developed by [employer], [place], [place]. The performance characteristics of this test were validated by [facility]. The results are not intended to be used as the sole means for clinical diagnosis or patient management decisions. [facility] is authorized under Clinical Laboratory Improvement Amendments (CLIA) to perform high- complexity testing. This test is not yet approved or cleared by the [place] FDA. When there are no FDA-approved or cleared tests available, and other criteria are met, FDA can make tests available under an emergency access mechanism called an Emergency Use Authorization (EUA). The EUA for this test is supported by the Planner Chief of Health and Human Service's declaration that circumstances exist to justify the emergency use of in vitro diagnostics for the detection and/or diagnosis of the virus that causes COVID-19. This EUA will remain in effect for the duration of the COVID-19 declaration justifying emergency of IVDs, unless it is terminated or revoked by the FDA (after which the test may no longer be used). Performed By: #### C [facility] ####[facility] [id number] [place], [place] [address]Gp. Julio Edward Outside Colonoscopyon 2019 Outside Colonoscopy [id number] 0CD:127 Normal [facility] Lab Reportson 11-07-2019 Lab Reports [id number] 0CD:127 [facility] Consenton 11-03-2019 Consent [id number] 0CD:127 [facility] Ambulatory Clinical Summaryo n 10-26-2019 Ambulatory Clinical Summary {[id number]}CD:[id number] [facility] Physician Referralon 020 Physician Referral [id number] 0CD:127 [facility] Encounters Encounter Date Encounter Type Care Provider Facility Start: 08-02-2023 End: 08-02-2023 Emergency department patient visit [facility] Start: 06-26-2023 End: 06-26-2023 ambulatory QUINN PICKENS [facility] Start: 07-01-2022 End: 07-02-[address] DIDI GARCIA Facility:[facility] Start: 04-23-2022 End: 06-26-[address] DIDI GARCIA Facility:[facility] Start: 03-31-2022 End: 04-01-[address] DIDI GARCIA Facility:[facility] Start: 03-12-2022 End: 11-17-2022 ambulatory QUINN PICKENS Facility:[facility] Start: 03-05-2022 End: 03-06-2022 ambulatory QUINN PICKENS Facility:[facility] Start: 02-21-2022 End: 02-22-2022 ambulatory QUINN PICKENS Facility:[facility] Start: 07-15-2021 End: 07-16-[address] CINTHYA MATT . Facility:[facility] Start: 08-19-2017 End: 08-20-2017 Ambulatory DEFAULT PHYSICIAN Facility:[facility] Procedures Date Procedure Procedure Detail Performing Clinician Start: 02-21-2022 PSA screening QUINN Ramirez [facility] Comment on above: Performed By: #### P SAD #### [facility] [address] [place] [address] Dr. Julio Leon Payers Date Payer Category Payer Medicare [id number] 2023 Unknown [id number] 1957 Unknown [id number] 1955 Unknown [id number] 2.16.84 [id number] 1957 Unknown [id number] 2.16.84 [id number] 1957 Unknown [id number] 2.16.84 [id number] 1957 Unknown [id number] 2.16.84 [id number] 1957 Unknown [id number] 2.16.84 [id number] 1957 Unknown [id number] 2.16.84 [id number] 1957 Unknown [id number] 2.16.84 [id number] 1957 Unknown [id number] 2.16.8 [id number] Self-pay Self Pay [id number] Unknown Social History Date Type Detail Facility Tobacco smoking stat [facility] Unknown if ever smoked [facility] Start: 1955 Sex Assigned At Male [facility] Goals Date Patient Goal Desired Activity /State Progress note 08-02-2023 Note Date & Type Note Facility 08-02-2023 Note Flap Maker Authen tication Interface Message Text CURRENT STATUS IS EMERGENCY . : Any questions regarding PATIENT CLASS/STATUS should be directed to the Care Management Departments: [facility] [phone] or [facility] [phone] [facility] [phone]. [facility] Progress note 06-26-2023 Note Date & Type Note Facility 06-26-2023 Note Coronary artery dise ase is stable without any concerning symptoms Continue GDMT- ASA, zetia, no beta zachery in light of previous bradycardia and hypotension. Will resume simvastatin 40 mg- this was tolerated in the past. continue risk factor modifications- heart healthy diet, regular exercise as tolerated and continue all medications. D/W pt that with co morbidites of Moderate CAD, DM, and HPL that being that he is not tolerant of high intensity statin can increase his risk of worsening coronary atherosclerosis/blockage. [facility] Progress note 06-26-2023 Note Date & Type Note Facility 06-26-2023 Note Currently resolved [facility] Progress note 06-26-2023 Note Date & Type Note Facility 06-26-2023 Note Significant myalgias with crestor and now lipitor 20 mg. Resume simvastatin 40 mg daily- he has tolerated this in the past Will repeat lipid level in 2-3 months. [facility] Progress note 06-26-2023 Note Date & Type Note Facility 06-26-2023 Note PT has not been able to tolerate high intensity statin, he has tolerated zocor in the past. Pt stopped liptor 20 mg r/t myalgias of especially the hands, he had similar symptoms with crestor. Will repeat lipid in 2-3 months, and resume zocor 40 mg daily. [facility] Progress note 06-26-2023 Note Date & Type Note Facility 06-26-2023 Note [facility] CARDIOLOGY PROGR ESS NOTE HPI: Brody West is a 68 y.o. male here for routine f/U for CAD- non obstructive, PVCs, HPL. Patient here for 1 year follow up CAD and PVC's. A few months ago Dr. Garcia switched him from rosuvastatin to atorvastatin due to myalgias. He stopped taking atorvastatin a few days ago due to myalgias again. Last lipid panel was drawn 6 months ago in Dec 2022. Denies chest pain, SOB, and palpitations. Walks 2 miles 5-6 days a week on the treadmill at home about 30 min at a time without any limiting symptoms. Review of Systems Musculoskeletal: Positive for back pain. All other systems reviewed and are negative. Previous HPI per Dr Garcia HPI Brody West is seen in follow up. He is a 67 y.o. male with history of uncontrolled diabetes. He was previously evaluated in cardiology clinic because of shortness of breath on exertion. His stress test showed ischemia by ECG criteria with ST depressions. Myocardial perfusion imaging was within normal limits. He was referred for cardiac catheterization on 04/02/2022. this showed moderate three-vessel coronary disease with normal filling and pulmonary pressures and normal cardiac output and cardiac index. Given stable ischemic coronary artery disease and absence of critical lesions the patient was managed medically. He was referred to undergo cardiac rehab which he completed successfully. After the cardiac catheterization I changed his simvastatin to rosuvastatin 40 mg daily. I also gave him a prescription for isosorbide mononitrate 30 mg daily but he did not take it. Currently he is doing well. He has no symptoms of angina or heart failure. His blood pressure and heart rate are well controlled. His recent lipid profile shows adequate control. He reports that he has been exercising at home on a regular basis on the treadmill 5 times a week. No symptoms at all with exertion. Visit Vitals BP 140/77 (BP Location: Left arm, Patient Position: Sitting) Pulse 68 Ht 1.803 m (5' 11 ) Wt 87.5 kg (193 lb) SpO2 96% BMI 26.92 kg/m??? Smoking Status Never BSA 2.09 m??? Allergies Allergen Reactions Atorvastatin myalgias Rosuvastatin myalgias Medications: Current Outpatient Medications on File Prior to Visit Medication Sig Dispense Refill aspirin 81 mg EC tablet Take 81 mg by mouth in the morning. ezetimibe (Zetia) 10 mg tablet Take 1 tablet every day by oral route for 30 days. insulin aspart (NovoLOG) 100 unit/mL (3 mL) pen Inject under the skin before breakfast, before lunch, and before evening meal. Per ISS metFORMIN (Glucophage) 500 mg tablet Take 500 mg by mouth with breakfast and with evening meal. insulin detemir (Levemir FlexTouch U-100 Insuln) 100 unit/mL (3 mL) pen Inject 27 Units under the skin in the morning and at bedtime. Lantus Solostar U-100 Insulin 100 unit/mL (3 mL) injection pen INJECT 26 UNITS SUBCUTANEOUSLY TWICE A DAY rosuvastatin (Crestor) 40 mg tablet Take 1 tablet (40 mg) by mouth in the morning. (Patient taking differently: Take 40 mg by mouth at bedtime.) 90 tablet 3 [DISCONTINUED] atorvastatin (Lipitor) 20 mg tablet TAKE 1 TABLET BY MOUTH EVERY DAY AT BEDTIME (Patient not taking: Reported on 06/26/2023) 90 tablet 3 No current facility-administered medications on file prior to visit. Physical Exam: Constitutional: Appearance: Normal appearance. Without apparent distress HENT: Head: Normocephalic and atraumatic. Nose: Nose normal. Mouth/Throat: Mouth: Mucous membranes are moist. Eyes: Extraocular Movements: Extraocular movements intact. Conjunctiva/sclera: Conjunctivae normal. Neck: Vascular: No JVD. Cardiovascular: Rate and Rhythm: Normal rate and regular rhythm. Pulses: Dorsalis pedis pulses are 3 on the right side and 3on the left side. Posterior tibial pulses are 3 on the right side and 3 on the left side. Heart sounds: Normal heart sounds, S1 normal and S2 normal. Pulmonary: Effort: Pulmonary effort is normal. Breath sounds: Normal breath sounds. Abdominal: General: Bowel sounds are normal. Palpations: Abdomen is soft. Musculoskeletal: General: Normal range of motion. Cervical back: Normal range of motion. Right lower leg: No edema. Left lower leg: No edema. Skin: General: Skin is warm and dry. Capillary Refill: Capillary refill takes less than 2 seconds. Neurological: General: No focal deficit present. Mental Status: he is alert and oriented to person, place, and time. Psychiatric: Mood and Affect: Mood normal. Behavior: Behavior normal. Thought Content: Thought content normal. Judgment: Judgment normal. Labs: reports recent A1C was improved to 6.4 02/02/23 CBC stable Renal function normal Admission on 04/02/2022, Discharged on 04/02/2022 Component Date Value WBC 03/31/2022 5.1 Hemoglobin, Serum 03/31/2022 14.1 Hematocrit 03/31/2022 43.0 Platelets 03/31/2022 267 Sodium 03/31/2022 136 Pota (more content not included)... [facility] Progress note 06-26-2023 Note Date & Type Note Facility 06-26-2023 Note Patient here for 1 y ear follow up CAD and PVC's. A few months ago Dr. Garcia switched him from rosuvastatin to atorvastatin due to myalgias. He stopped taking atorvastatin a few days ago due to myalgias again. Last lipid panel was drawn 6 months ago in Dec 2022. Denies chest pain, SOB, and palpitations. Walks 2 miles 5-6 days a week on the treadmill at home. Review of Systems Musculoskeletal: Positive for back pain. All other systems reviewed and are negative. [facility] Clinical Note 03-12-2022 Note Date & Type Note Facility 03-12-2022 Note CARDIAC STRESS TEST Requesting Physician: Lona Pickens NP Procedure Date:03/12/2022 Performing Physician: Joe Dhillon M.D. REASON FOR TEST: Dyspnea on exertion. STRESS TEST TYPE: Exercise stress test with nuclear myocardial perfusion imaging. RESTING EKG: Sinus rhythm with PACs and PVCs. PROTOCOL PERFORMED: Galindo protocol. RESTING HEART RATE: 65 PEAK HEART RATE: 131 PEAK MAXIMAL HEART RATE PERCENTAGE: 85% RESTING BLOOD PRESSURE: 158/86 PEAK BLOOD PRESSURE: 182/89 EXERCISE TIME: 9 minutes and 1 second, STAGE REACHED: 3, MAX METS: 10.10 REASON FOR TERMINATION: Fatigue HEART RATE RECOVERY: Normal CHRONOTROPIC RESPONSE INDEX: 0.73, abnormal FUNCTIONAL CAPACITY: Good. BLOOD PRESSURE RESPONSE: Normal ST CHANGES: Inferior and lateral ST changes concerning for ischemia. MCCORMICK TREADMILL SCORE: +3.5, medium risk SYMPTOMS: None ARRHYTHMIAS: Frequent PVCs at rest, in addition to with exercise and recovery. There are isolated PVCs, in addition to couplets and triplets. CONCLUSION: 1. There are inferior and lateral ST changes, concerning for ischemia. 2. Mccormick treadmill score of +3.5, assuming a medium risk and 95% survival at 5 years. 3. Abnormal chronotropic response index, 0.73. 4. Patient has PVCs at rest, in addition to frequent PVCs with activity. 5. Clinical correlation recommended. Further investigation, including invasive coronary angiography, may be warranted if clinically indicated. 6. Nuclear myocardial perfusion scan is to be reported in separately read/interpreted report. Please refer to that report for further details. [facility] Summary Purpose Family History No Family History Records FoundNo Family History Records FoundNo Family History Records FoundNo Family History Records FoundNo Family History Records Found Advance Directives No Advanced Directives Records FoundNo Advanced Directives Records FoundNo Advanced Directives Records FoundNo Advanced Directives Records FoundNo Advanced Directives Records Found Assessments No Assessments Information Available Additional Source Comments (unrecognized sect ion and content) No Status Records FoundNo Status Records FoundNo Status Records FoundNo Status Records FoundNo Status Records Found INFORMATION SOURCE (unrecogn ized section and content) DATE CREATED AUTHOR 10/15/2017 [facility] DATE CREATED AUTHOR AUTHOR'S ORGANIZ ATION 12/27/2019 [facility] DATE CREATED AUTHOR AUTHOR'S ORGANIZ ATION 07/05/2022 [facility] DATE CREATED AUTHOR AUTHOR'S ORGANIZ ATION 08/08/2023 [facility] DATE CREATED AUTHOR AUTHOR'S ORGANIZ ATION 08/30/2023 [facility] FOR RECORDS PERTAINING TO PATIENTS WHO ARE OR HAVE BEEN ENROLLED IN A CHEMICAL DEPENDENCY/SUBSTANCEABUSE PROGRAM, SOME INFORMATION MAY BE OMITTED. This clinical summary was aggregated from multiple sources. Caution should be exercised in using it in the provision of clinical care. This summary normalizes information from multiple sources, and as a consequence, information in this document may materially change the coding, format and clinical context of patient data. In addition, data may be omitted in some cases. CLINICAL DECISIONS SHOULD BE BASED ON THE PRIMARY CLINICAL RECORDS. [email or web address] provides no warranty or guarantee of the accuracy or completeness of information in this document.
[2023-10-07 08:40] LABS: Estimated Average Glucose 180 mg/dL; Glycohemoglobin A1C 7.9 % (4.5-6.2)
[2023-10-07 10:01] LABS: Alanine Aminotransferase 24 U/L (16-63); Albumin Globulin Ratio 1.1; Albumin Level 3.8 g/dL (3.4-5.0); Alkaline Phosphatase 49 U/L (46-116); Aspartate Amino Transferase 15 U/L (15-37); Bilirubin Direct 0.1 mg/dL (0.0-0.2); Bilirubin Total 0.6 mg/dL (0.2-1.0); Chol HDL Ratio 2.2; Cholesterol 117 mg/dL (<=200); Globulin 3.4 g/dL; HDL Cholesterol 52 mg/dL (40-60); LDL Cholesterol Calculated 56.8 mg/dL; Total Protein 7.2 g/dL (6.4-8.2); Triglycerides 41 mg/dL (<=150); VLDL CHOLESTEROL 8.2 mg/dL
== END 2023-10-07 07:38 | disposition home or self-care (01) ==
LOC: LAB 07:39
PROVIDERS: PCP Family Medicine; Visit Provider Family Medicine
DX: E10.3293 Type 1 diabetes mellitus with mild nonproliferative diabetic retinopathy without macular edema, bilateral (principal); Z79.899 Other long term (current) drug therapy; E78.5 Hyperlipidemia, unspecified; I11.9 Hypertensive heart disease without heart failure
CPT/HCPCS: 36415; 80048; 80061; 80076; 83036

== ENCOUNTER 2023-10-07 12:06 | Outpatient (OUT) | payer MEDICARE, OTHER, SELFPAY ==
--- OUTSIDE RECORDS SUMMARY | 2023-10-07 12:20 | XMS_ITS ---
Patient Summarization (C-CDA 2.1 CCD) Created on: October 07, 2023 BRODY WEST : 1955 Sex: Male Author Organization Sample organization Care Team Providers Care Telecommunications Analyst Name Role Phone PHYSICIAN, DEFAULT Unavailable Unavailable PHYSICIAN, DEFAULT Unavailable Unavailable HOYLORYCINTHYA Unavailable Unavailable CELIO, QUINN Admitting Unavailable CELIO, QUINN Attending Unavailable HOY ., DR MENDES Primary Care Unavailable CELIO, QUINN Consulting Unavailable CELIO, QUINN Admitting Unavailable CELIO, QUINN Attending Unavailable HOY ., DR MENDES Primary Care Unavailable CELIO, QUINN Consulting Unavailable CELIO, QUINN Admitting Unavailable CELIO, QUINN Attending Unavailable HOY ., DR MENDES Primary Care Unavailable BATAVIA, DR JOSEPH Moyer Consulting Unavailable CELIO, QUINN [...] Drug allergy (disorder) 03-23-2013 [facility] Repository (1 source) atorvastatin; Translations: [ATORVASTATIN] Drug Allergy 06-26-2023 [facility] Repository (1 source) rosuvastatin; Translations: [ROSUVASTATIN] Drug Allergy 06-26-2023 [facility] Repository Encounters Encounter Date Encounter Type Care Provider Facility Start: 08-02-2023 End: 08-02-2023 Emergency department patient visit ELBA SUTTON [facility] Start: 06-26-2023 End: 06-26-2023 ambulatory QUINN PICKENS [facility] Start: 07-01-2022 End: 07-02-[address] DIDI GARCIA Facility:[facility] Start: 04-23-2022 End: 06-26-[address] DIID GARCIA Facility:[facility] Start: 03-31-2022 End: 04-01-[address] DIDI GARCIA Facility:[facility] Start: 03-12-2022 End: 03-13-2022 ambulatory QUINN PICKENS Facility:[facility] Start: 03-05-2022 End: 03-06-2022 ambulatory QUINN PICKENS Facility:[facility] Start: 02-21-2022 End: 02-22-2022 ambulatory QUINN PICKENS Facility:[facility] Start: 07-15-2021 End: 07-16-[address] CINTHYA MATT . Facility:[facility] Start: 08-19-2017 End: 08-20-2017 Ambulatory DEFAULT PHYSICIAN Facility:[facility] Goals Date Patient Goal Desired Activity /State Payers Date Payer Category Payer Medicare [id number] 2023 Unknown [id number] 1957 Unknown [id number] 1955 Unknown [id number] ..[id number] 1955 Unknown [id number] ..[id number] 1955 Unknown [id number] ..[id number] 1955 Unknown [id number] ..[id number] 1955 Unknown [id number] ..[id number] 1955 Unknown [id number] 2.16.84 [id number] 1955 Unknown [id number] 2.16.84 [id number] 1955 Unknown [id number] 2.16.8 [id number] Self-pay Self Pay [id number] Unknown Problems Active Problems Problem Classification Problem Date Documented Da te Episodic/Chronic Cardiac dysrhythmias (2 sources) Ventricular premature depolarization; Translations: [Ventricular premature depolarization] Onset: 06-26-2023 Chronic Coronary atherosclerosis and other heart disease (6 sources) Other forms of angina pectoris; Translations: [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] Onset: 04-23-2022 Chronic Disorders of lipid metabolism (6 sources) Mixed hyperlipidemia; Translations: [MIXED HYPERLIPIDEMIA] Onset: 02-19-2022 Chronic Other lower respiratory disease (6 sources) Other forms of dyspnea; Translations: [OTHER FORMS OF DYSPNEA] Onset: 02-19-2022 Episodic Other screening for suspected conditions (not mental disorders or infectious disease) (4 sources) Abnormal result of other cardiovascular function study; Translations: [ABNORM RESULT OT CV FUNCTION STUDY] Onset: 03-31-2022 Episodic Residual [...] [CONTACT W/AND (SUSP) EXPOS COVID-19] Onset: 07-15-2021 Procedures Date Procedure Procedure Detail Performing Clinician Start: 02-21-2022 PSA screening QUINN Ramirez OES Comment on above: Performed By: #### P SAD #### [facility] [id number] Julio Leon Results Test Name Value Interpretation Reference Range Facility 36on 08-28-[address] Garcia, restart patient on simvastatin 40mg daily and see if he qualifies for Repatha with his insurance. RX's sent to [facility]. Patient made aware. Normal [facility] BEDSIDE GLUCOSEon 08-02-2023 Glucose [Mass/Vol] 143 mg/dL High 70-99 [facility] Comment on above: Performed By: #### N PGLU #### Scarlett Reynolds ([id number]) [facility] [address] [place] [address] Glucose [Mass/Vol] 266 mg/dL High 70-99 [facility] Comment on above: Performed By: #### N PGLU #### Scarlett Reynolds ([id number]) [facility] [address] [place] [address] ED PROV NOTEon 08-02-2023 ED PROV NOTE Uke Driver Authentication Interface Message Text [facility] EMERGENCY DEPARTMENT ED Encounter Arrival Date: 08/02/23405 Brody West : 1955 No address on file. CSN: [id number] DAVID: [id number] EMERGENCY DEPARTMENT - GENERAL NOTE CHIEF COMPLAINT Chief Complaint Patient presents with Hypoglycemia HPI Brody West is a 68 year old male who presents hypoglycemic reaction. Patient was acting weird when he woke up his , checked his sugar it was 44. Called EMS. Patient was given orange juice, blood sugar went back up, signed refusal. Shortly thereafter was having a [employer] jelly sandwich and then his blood sugar [...] presents with Hypoglycemia Differential Diagnosis: Hypoglycemia, sepsis, RI Patient has the following Problem List: There are no problems to display for this patient. External Records: External records reviewed and show: OARRS/INSPECT/MARYANN have not been reviewed for this patient. Work up and therapy ordered during this encounter: Pertinent Labs & Imaging studies reviewed. (See EDCourse for det (more content not included)... Normal [facility] Office Visiton 06-26-2023 Follow-up visit [id number] Vikash West L 1955 M Date Provider Department Center 06/26/2023 120-QUINN PICKENS HARJINDER Sanchez Family History Problem Relation Age of Onset ALS Mother Coronary artery disease Father Other Father Coronary artery disease Brother Other Brother Family Status - Relation Status Age at Mother Father Brother Level of Service:81853 MI OFFICE/OUTPATIENT ESTABLISHED MOD MDM 30 MIN Normal [facility] Orders Onlyon 06-08-2023 Orders Only [id number] DebiVikash martinez as L 1955 M Date Provider Department Center 06/08/2023 UC[facility] TRAORE HARJINDER Sanchez Family History Problem Relation Age of Onset ALS Mother Coronary artery disease Father Other Father Coronary artery disease Brother Other Brother Family Status - Relation Status Age at Mother Father Brother Normal [facility] LIPID PROFILEon 07-01-2022 CHOL-HDL RATIO NORM SEE BELOW Normal [facility] Comment on above: Result Comment: 3.3 - 4.4 LOW RISK 4.4 - 7.1 AVERAGE RISK 7.1 - 11.0 MODERATE RISK >11.0 HIGH RISK Performed By: #### L IPID #### [facility] [address] [address] [address] Julio Leon Cholesterol [Mass/Vol] 109 mg/dL Normal <=200 [facility] Comment on above: Performed By: #### L IPID #### [facility] [address] [address] [address] Julio Leon Cholesterol in HDL [Mass/Vol] 48 mg/dL Normal 40-60 [facility] Comment on above: Performed By: #### L IPID #### [facility] [address] [address] [address] Julio Loen Cholesterol in LDL [Mass/Vol] 49.6 mg/dL Normal [facility] Comment on above: Performed By: #### L IPID #### [facility] [address] [address] [address] Julio Leon Cholesterol.total/C holesterol in HDL [Mass ratio] 2.3 {ratio} Normal [facility] Comment on above: Performed By: #### L IPID #### [facility] [address] [address] [address] Julio Leon HDL NORMAL > or = 60 mg/dl - LO W CARDIOVASCULAR RISK <40 mg/dl - HIGH CARDIOVASCULAR RISK Normal [facility] Comment on above: Performed By: #### L IPID #### [facility] [address] [address] [address] Julio Leon LDL CALC NORMAL SEE BELOW Normal [facility] Comment on above: Result Comment: <100 mg/dl OPTIMAL 100 - 129 mg/dl NEAR OR ABOVE OPTIMAL 130 - 159 mg/dl BORDERLINE HIGH 160 - 189 mg/dl HIGH >190 mg/dl VERY HIGH Performed By: #### L IPID #### [facility] [address] [address] [address] Julio Leon Triglyceride [Mass/Vol] 57 mg/dL Normal <=150 [facility] Comment on above: Performed By: #### L IPID #### [facility] [address] [place] [address] Dr. Julio Leon VLDL CALC 11.4 mg/dL Normal [facility] Comment on above: Performed By: #### L IPID #### [facility] [address] [place] [address] Dr. Julio Leon CBC AUTO DIFFon 03-31-2022 BASO # 0.1 103/ul Normal 0.0-0.1 [facility] Comment on above: Performed By: #### C BC #### [facility] [address] [place] [address] Dr. Julio Leon Basophils/100 WBC (Bld) 1.4 % Normal 0.2-2.0 [facility] Comment on above: Performed By: #### C BC #### [facility] [address] [place] [address] Dr. Julio Leon EO # 0.1 103/ul Normal 0.0-0.7 [facility] Comment on above: Performed By: #### C BC #### [facility] [address] [place] [address] Dr. Julio Leon Eosinophils/100 WBC (Bld) 2.0 % Normal 0.9-7.0 [facility] Comment on above: Performed By: #### C BC #### [facility] [address] [place] [address] Dr. Julio Leon Erythrocyte distribution width (RBC) [Ratio] 12.5 % Normal 11.0-15.0 [facility] Comment on above: Performed By: #### C BC #### [facility] [address] [place] [address] Dr. Julio Leon Hematocrit (Bld) [Volume fraction] 43.0 % Normal 42.0-54.0 [facility] Comment on above: Performed By: #### C BC #### [facility] [address] [place] [address] Dr. Julio Leon Hemoglobin (Bld) [Mass/Vol] 14.1 g/dL Normal 14.0-18.0 [facility] Comment on above: Performed By: #### C BC #### [facility] [address] [place] [address] Dr. Julio Leon IG # 0.01 10e3/ul Normal 0.00-0.03 [facility] Comment on above: Performed By: #### C BC #### [facility] [address] [place] [address] Dr. Julio Leon IG % 0.2 % Normal 0.0-0.5 [facility] Comment on above: Performed By: #### C BC #### [facility] [address] [place] [address] Dr. Julio Leon LYMPH # 1.4 103/ul Normal 1.2-3.8 [facility] Comment on above: Performed By: #### C BC #### [facility] [address] [place] [address] Dr. Julio Leon Lymphocytes/100 WBC (Bld) 28.1 % Normal 20.5-60.0 [facility] Comment on above: Performed By: #### C BC #### [facility] [address] [place] [address] Dr. Julio Leon MANUAL DIFF REQ NO Normal [facility] Comment on above: Performed By: #### C BC #### [facility] [address] [place] [address] Dr. Julio Leon MCH (RBC) [Entitic mass] 30.1 pg Normal 25.9-34.0 [facility] Comment on above: Performed By: #### C BC #### [facility] [address] [place] [address] Dr. Julio Leon MCHC (RBC) [Mass/Vol] 32.8 g/dL Normal 29.9-35.2 [facility] Comment on above: Performed By: #### C BC #### [facility] [address] [place] [address] Dr. Julio Leon MCV (RBC) [Entitic vol] 91.9 fL Normal 80.0-94.0 [facility] Comment on above: Performed By: #### C BC #### [facility] [address] [address] [address] Julio Leon MONO # 0.5 103/ul Normal 0.3-0.8 [facility] Comment on above: Performed By: #### C BC #### [facility] [address] [address] [address] Julio Leon Monocytes/100 WBC (Bld) 9.8 % Normal 1.7-12.0 [facility] Comment on above: Performed By: #### C BC #### [facility] [address] [address] [address] Julio Leon NEUT # 3.0 103/ul Normal 1.4-6.5 [facility] Comment on above: Performed By: #### C BC #### [facility] [address] [place] [address] Dr. Julio Leon Neutrophils/100 WBC (Bld) 58.5 % Normal 43.0-75.0 [facility] Comment on above: Performed By: #### C BC #### [facility] [address] [address] [address] Julio Leon Platelet mean volume (Bld) [Entitic vol] 9.6 fL Normal 9.5-13.5 [facility] Comment on above: Performed By: #### C BC #### [facility] [address] [address] [address] Julio Leon PLT 267 103/ul Normal 150-450 [facility] Comment on above: Performed By: #### C BC #### [facility] [address] [address] [address] Julio Leon RBC 4.68 106/ul Critically low 4.70-6.10 [facility] Comment on above: Performed By: #### C BC #### [facility] [address] [address] [address] Julio Leon WBC 5.1 103/ul Normal 4.0-11.0 [facility] Comment on above: Performed By: #### C BC #### [facility] [address] [address] [address] Julio Leon PROF CHEM 8 (BAS METB)on Anion gap [Moles/Vol] 11.6 mmol/L Normal [facility] Comment on above: Performed By: #### B MP #### [facility] [address] [address] [address] Julio Leon Calcium [Mass/Vol] 9.3 mg/dL Normal 8.5-10.1 [facility] Comment on above: Performed By: #### B MP #### [facility] [address] [address] [address] Julio Leon Chloride [Moles/Vol] 101 mmol/L Normal 98-107 [facility] Comment on above: Performed By: #### B MP #### [facility] [address] [place] [address] Dr. Julio Leon CO2 [Moles/Vol] 27.8 mmol/L Normal 21.0-32.0 [facility] Comment on above: Performed By: #### B MP #### [facility] [address] [place] [address] Dr. Julio Leon Creatinine [Mass/Vol] 0.95 mg/dL Normal 0.70-1.30 [facility] Comment on above: Performed By: #### B MP #### [facility] [address] [place] [address] Dr. Julio Leon EGFR-AF LATVIAN >60 Normal >=60 [facility] Comment on above: Performed By: #### B MP #### [facility] [address] [place] [address] Dr. Julio Leon EGFR-NON AF LATVIAN >60 Normal >=60 [facility] Comment on above: Performed By: #### B MP #### [facility] [address] [place] [address] Dr. Julio Leon Glucose [Mass/Vol] 80 mg/dL Normal 74-106 The [facility] Comment on above: Performed By: #### B MP #### [facility] [address] [place], [place] [id number] Dr. Julio Leon Potassium [Moles/Vol] 4.4 mmol/L Normal 3.5-5.1 [facility] Comment on above: Performed By: #### B MP #### [facility] [address] [address] [address] Julio Leon Sodium [Moles/Vol] 136 mmol/L Normal 136-145 [facility] Comment on above: Performed By: #### B MP #### [facility] [address] [address] [address] Julio Leon Urea nitrogen [Mass/Vol] 14.0 mg/dL Normal 7.0-18.0 [facility] Comment on above: Performed By: #### B MP #### [facility] [address] [address] [address] Julio Leon Urea nitrogen/Creatinine [Mass ratio] 14.7 mg/mg Normal [facility] Comment on above: Performed By: #### B MP #### [facility] [address] [place] [address] Dr. Julio Leon NM STRESS/REST MULTIon 03-12 NM STRESS/REST MULTI Patient: BRODY WEST Exam Date: 03/12/2022 : 1955 Gender:M Ordering : QUINN PICKENS Admission #: [id number] Family : DR CINTHYA MATT . Order #: [id number] CLICK HERE TO VIEW EXAM RADIOLOGY REPORT [...] study was abnormal per attending physician Dr. Alghothani EKG changes. For more details please see [...] Cramer MD on 03/12/2022 at 14:20 Normal [facility] ECHOCARDIO M/2D COMPLETEon 1 05-05-2021 ECHOCARDIO M/2D COMPLETE Patient: BRODY WEST Exam Date: 03/05/2022 : 1955 Gender:M Ordering : QUINN PICKENS Admission #: [id number] Family : DR CINTHYA MATT . Order #: [id number] CLICK HERE TO VIEW EXAM ECHOCARDIOGRAM REPORT [...] M.D. on 03/05/2022 at 18:14 Normal [facility] CBC AUTO DIFFon 02-21-2022 BASO # 0.1 103/ul Normal 0.0-0.1 [facility] Comment on above: Performed By: #### C BC #### [facility] [address] [address] [address] Julio Leon Basophils/100 WBC (Bld) 1.2 % Normal 0.2-2.0 [facility] Comment on above: Performed By: #### C BC #### [facility] [address] [place] [address] Dr. Julio Leon EO # 0.1 103/ul Normal 0.0-0.7 [facility] Comment on above: Performed By: #### C BC #### [facility] [address] [place] [address] Dr. Julio Leon Eosinophils/100 WBC (Bld) 3.2 % Normal 0.9-7.0 [facility] Comment on above: Performed By: #### C BC #### [facility] [address] [place] [address] Dr. Julio Leon Erythrocyte distribution width (RBC) [Ratio] 12.7 % Normal 11.0-15.0 [facility] Comment on above: Performed By: #### C BC #### [facility] [address] [place] [address] Dr. Julio Leon Hematocrit (Bld) [Volume fraction] 39.3 % Critically low 42.0-54.0 [facility] Comment on above: Performed By: #### C BC #### [facility] [address] [place] [address] Dr. Julio Leon Hemoglobin (Bld) [Mass/Vol] 13.1 g/dL Critically low 14.0-18.0 [facility] Comment on above: Performed By: #### C BC #### [facility] [address] [place] [address] Dr. Julio Leon IG # 0.01 10e3/ul Normal 0.00-0.03 [facility] Comment on above: Performed By: #### C BC #### [facility] [address] [place] [address] Dr. Julio Leon IG % 0.2 % Normal 0.0-0.5 [facility] Comment on above: Performed By: #### C BC #### [facility] [address] [place] [address] Dr. Julio Leon LYMPH # 1.3 103/ul Normal 1.2-3.8 [facility] Comment on above: Performed By: #### C BC #### [facility] [address] [place] [address] Dr. Julio Leon Lymphocytes/100 WBC (Bld) 32.4 % Normal 20.5-60.0 [facility] Comment on above: Performed By: #### C BC #### [facility] [address] [place] [address] Dr. Julio Leon MANUAL DIFF REQ NO Normal [facility] Comment on above: Performed By: #### C BC #### [facility] [address] [place] [address] Dr. Julio Leon MCH (RBC) [Entitic mass] 30.8 pg Normal 25.9-34.0 [facility] Comment on above: Performed By: #### C BC #### [facility] [address] [place] [address] Dr. Julio Leon MCHC (RBC) [Mass/Vol] 33.3 g/dL Normal 29.9-35.2 [facility] Comment on above: Performed By: #### C BC #### [facility] [address] [place] [address] Dr. Julio Leon MCV (RBC) [Entitic vol] 92.3 fL Normal 80.0-94.0 [facility] Comment on above: Performed By: #### C BC #### [facility] [address] [place] [address] Dr. Julio Leon MONO # 0.5 103/ul Normal 0.3-0.8 [facility] Comment on above: Performed By: #### C BC #### [facility] [address] [place] [address] Dr. Julio Leon Monocytes/100 WBC (Bld) 11.2 % Normal 1.7-12.0 [facility] Comment on above: Performed By: #### C BC #### [facility] [address] [address] [address] Julio Leon NEUT # 2.1 103/ul Normal 1.4-6.5 [facility] Comment on above: Performed By: #### C BC #### [facility] [address] [address] [address] Julio Leon Neutrophils/100 WBC (Bld) 51.8 % Normal 43.0-75.0 [facility] Comment on above: Performed By: #### C BC #### [facility] [address] [address] [address] Julio Leon Platelet mean volume (Bld) [Entitic vol] 10.0 fL Normal 9.5-13.5 [facility] Comment on above: Performed By: #### C BC #### [facility] [address] [place] [address] Dr. Julio Leon PLT 232 103/ul Normal 150-450 [facility] Comment on above: Performed By: #### C BC #### [facility] [address] [address] [address] Julio Leon RBC 4.26 106/ul Critically low 4.70-6.10 [facility] Comment on above: Performed By: #### C BC #### [facility] [address] [address] [address] Julio Leon WBC 4.0 103/ul Normal 4.0-11.0 [facility] Comment on above: Performed By: #### C BC #### [facility] [address] [place] [address] Dr. Julio Leon LIPID PROFILEon 02-21-2022 CHOL-HDL RATIO NORM SEE BELOW Normal [facility] Comment on above: Result Comment: 3.3 - 4.4 LOW RISK 4.4 - 7.1 AVERAGE RISK 7.1 - 11.0 MODERATE RISK >11.0 HIGH RISK Performed By: #### L IPID, TSH, CMP #### [facility] [address] [address] [address] Julio Leon Cholesterol [Mass/Vol] 132 mg/dL Normal <=200 [facility] Comment on above: Performed By: #### L IPID, TSH, CMP #### [facility] [address] [address] [address] Julio Leon Cholesterol in HDL [Mass/Vol] 46 mg/dL Normal 40-60 [facility] Comment on above: Performed By: #### L IPID, TSH, CMP #### [facility] [address] [address] [address] Julio Leon Cholesterol in LDL [Mass/Vol] 71.4 mg/dL Normal [facility] Comment on above: Performed By: #### L IPID, TSH, CMP #### [facility] [address] [address] [address] Julio Leon Cholesterol.total/C holesterol in HDL [Mass ratio] 2.9 {ratio} Normal [facility] Comment on above: Performed By: #### L IPID, TSH, CMP #### [facility] [address] [address] [address] Julio Leon HDL NORMAL > or = 60 mg/dl - LO W CARDIOVASCULAR RISK <40 mg/dl - HIGH CARDIOVASCULAR RISK Normal [facility] Comment on above: Performed By: #### L IPID, TSH, CMP #### [facility] [address] [address] [address] Julio Leon LDL CALC NORMAL SEE BELOW Normal [facility] Comment on above: Result Comment: <100 mg/dl OPTIMAL 100 - 129 mg/dl NEAR OR ABOVE OPTIMAL 130 - 159 mg/dl BORDERLINE HIGH 160 - 189 mg/dl HIGH >190 mg/dl VERY HIGH Performed By: #### L IPID, TSH, CMP #### [facility] [address] [address] [address] Julio Leon Triglyceride [Mass/Vol] 73 mg/dL Normal <=150 [facility] Comment on above: Performed By: #### L IPID, TSH, CMP #### [facility] [address] [address] [address] Julio Leon VLDL CALC 14.6 mg/dL Normal [facility] Comment on above: Performed By: #### L IPID, TSH, CMP #### [facility] [address] [address] [address] Julio Leon PROF 14(COMP METB)on 022 Albumin [Mass/Vol] 3.7 g/dL Normal 3.4-5.0 [facility] Comment on above: Performed By: #### L IPID, TSH, CMP #### [facility] [address] [address] [address] Julio Leon Albumin/Globulin [Mass ratio] 1.1 {ratio} Normal [facility] Comment on above: Performed By: #### L IPID, TSH, CMP #### [facility] [address] [address] [address] Julio Leon ALP [Catalytic activity/Vol] 53 U/L Normal 46-116 [facility] Comment on above: Performed By: #### L IPID, TSH, CMP #### [facility] [address] [address] [address] Julio Leon ALT [Catalytic activity/Vol] 21 U/L Normal 16-63 [facility] Comment on above: Performed By: #### L IPID, TSH, CMP #### [facility] [address] [address] [address] Julio Leon Anion gap [Moles/Vol] 8.8 mmol/L Normal [facility] Comment on above: Performed By: #### L IPID, TSH, CMP #### [facility] [address] [address] [address] Julio Leon AST [Catalytic activity/Vol] 15 U/L Normal 15-37 [facility] Comment on above: Performed By: #### L IPID, TSH, CMP #### [facility] [address] [address] [address] Julio Leon Bilirubin [Mass/Vol] 0.5 mg/dL Normal 0.2-1.0 [facility] Comment on above: Performed By: #### L IPID, TSH, CMP #### [facility] [address] [place] [address] Dr. Julio Leon Calcium [Mass/Vol] 8.6 mg/dL Normal 8.5-10.1 [facility] Comment on above: Performed By: #### L IPID, TSH, CMP #### [facility] [address] [place] [address] Dr. Julio Leon Chloride [Moles/Vol] 104 mmol/L Normal 98-107 [facility] Comment on above: Performed By: #### L IPID, TSH, CMP #### [facility] [address] [place] [address] Dr. Julio Leon CO2 [Moles/Vol] 31.3 mmol/L Normal 21.0-32.0 [facility] Comment on above: Performed By: #### L IPID, TSH, CMP #### [facility] [address] [place] [address] Dr. Julio Leon Creatinine [Mass/Vol] 1.03 mg/dL Normal 0.70-1.30 [facility] Comment on above: Performed By: #### L IPID, TSH, CMP #### [facility] [address] [place] [address] Dr. Julio Leon EGFR-AF LATVIAN >60 Normal >=60 [facility] Comment on above: Performed By: #### L IPID, TSH, CMP #### [facility] [address] [place] [address] Dr. Julio Leon EGFR-NON AF LATVIAN >60 Normal >=60 [facility] Comment on above: Performed By: #### L IPID, TSH, CMP #### [facility] [address] [place] [address] Dr. Julio Leon Globulin (S) [Mass/Vol] 3.5 g/dL Normal [facility] Comment on above: Performed By: #### L IPID, TSH, CMP #### [facility] [address] [place] [address] Dr. Julio Leon Glucose [Mass/Vol] 78 mg/dL Normal 74-106 The [facility] Comment on above: Performed By: #### L IPID, TSH, CMP #### [facility] [address] [place] [address] Dr. Julio Leon Potassium [Moles/Vol] 4.1 mmol/L Normal 3.5-5.1 [facility] Comment on above: Performed By: #### L IPID, TSH, CMP #### [facility] [address] [place] [address] [address] Julio Leon Protein [Mass/Vol] 7.2 g/dL Normal 6.4-8.2 The [facility] Comment on above: Performed By: #### L IPID, TSH, CMP #### [facility] [address] [place] [address] [address] Julio Leon Sodium [Moles/Vol] 140 mmol/L Normal 136-145 The [facility] Comment on above: Performed By: #### L IPID, TSH, CMP #### [facility] [address] [place] [address] [address] Julio Leon Urea nitrogen [Mass/Vol] 12.0 mg/dL Normal 7.0-18.0 [facility] Comment on above: Performed By: #### L IPID, TSH, CMP #### [facility] [address] [place] [address] [address] Julio Leon Urea nitrogen/Creatinine [Mass ratio] 11.7 mg/mg Normal [facility] Comment on above: Performed By: #### L IPID, TSH, CMP #### [facility] [address] [place] [address] [address] Julio Leon TSHon 02-21-2022 TSH 1.278 uIU/mL Normal 0.358-3.740 [facility] Comment on above: Performed By: #### L IPID, TSH, CMP ####[facility] [address] [place] [address]Dr. Julio Leon Covid-19 PCR ([facility])on 06-26 SARS-CoV-2 (COVID-19) RNA OLIMPIA+probe Ql (Unsp spec) Not detected Normal NOT DETECTED [facility] Comment on above: Result Comment: When diagnostic testing is negative, the possibility of a false negative should be considered in the context of a patient's recent exposures and the presence of clinical signs and symptoms consistent with SARS-CoV-2. This test is not yet approved or cleared by the [place] Food and Drug Administration (FDA). This test was developed by [employer], [place], [place]. The performance characteristics of this test were validated by [facility]. The results are not intended to be used as the sole means for clinical diagnosis or patient management decisions. [facility] is authorized under Clinical Laboratory Improvement Amendments [...] for this test is supported by the [place] of Health and Human Service's declaration that [...] longer be used). Performed By: #### [facility] ####[facility] [address] [place], [place] [address]Gk. Julio Leon Outside Colonoscopyon 2019 Outside Colonoscopy [id number] 0CD:127 Normal [facility] Lab Reportson 11-07-2019 Lab Reports [id number] 0CD:127 Normal [facility] Consenton 11-03-2019 Consent [id number] 0CD:127 Normal [facility] Ambulatory Clinical Summaryo n 10-26-2019 Ambulatory Clinical Summary {[id number] [facility] Physician Referralon 020 Physician Referral [id number] 0CD:127 Normal [facility] Social History Date Type Detail Facility Start: 1955 Sex Assigned At Male [facility] Progress note 08-02-2023 Note Date & Type Note Facility 08-02-2023 Note Uke Driver Authen tication Interface Message Text CURRENT STATUS IS EMERGENCY . : Any questions regarding PATIENT CLASS/STATUS should be directed to the Care Management Departments: [facility] [phone] or [facility] [phone] or [facility] [phone]. [facility] Progress note 06-26-2023 Note Date & Type [...] risk of worsening coronary atherosclerosis/blockage. [facility] Progress note 06-26-2023 Note Date & Type Note Facility 06-26-2023 Note Currently resolved [facility] Progress note 06-26-2023 Note Date & Type Note Facility 06-26-2023 Note Significant myalgias with crestor and now lipitor 20 mg. Resume simvastatin 40 mg daily- he has tolerated this in the past Will repeat lipid level in 2-3 months. [facility] Progress note 06-26-2023 Note Date & Type Note Facility 06-26-2023 Note PT has not been able to tolerate high intensity statin, he has tolerated zocor in the past. Pt stopped liptor 20 mg r/t myalgias of especially the hands, he had similar symptoms with crestor. Will repeat lipid in 2-3 months, and resume zocor 40 mg daily. [facility] Progress note 06-26-2023 Note Date [...] Pota (more content not included)... [facility] Progress note 06-26-2023 Note Date [...] systems reviewed and are negative. [facility] Clinical Note 03-12-2022 Note Date & Type [...] to that report for further details. [facility] Summary Purpose Family History No Family History [...] section and content) DATE CREATED AUTHOR 10/15/2017 [facility] DATE CREATED AUTHOR AUTHOR'S ORGANIZ ATION 12/27/2019 [facility] DATE CREATED AUTHOR AUTHOR'S ORGANIZ ATION 07/05/2022 [facility] DATE CREATED AUTHOR AUTHOR'S ORGANIZ ATION 08/08/2023 [facility] DATE CREATED AUTHOR AUTHOR'S ORGANIZ ATION 08/30/2023 [facility] FOR RECORDS PERTAINING TO PATIENTS WHO ARE [...] BE BASED ON THE PRIMARY CLINICAL RECORDS. [employer] provides no warranty or guarantee of the accuracy or completeness of information in this document.
[2023-10-07 12:32] LABS: Anion Gap 13.7; BUN Creatinine Ratio 11.9; Calcium 8.6 mg/dL (8.5-10.1); Carbon Dioxide 26.9 mmol/L (21.0-32.0); Chloride 100 mmol/L (98-107); Estimated GFR (African America >60 (>=60); Estimated GFR (Non-African Ame >60 (>=60); Glucose 284 mg/dL (74-106); Potassium 4.6 mmol/L (3.5-5.1); Sodium 136 mmol/L (136-145)
== END 2023-10-07 12:07 | disposition home or self-care (01) ==
LOC: LAB 12:08
PROVIDERS: PCP Family Medicine; Visit Provider Internal Medicine Interventional Cardiology
DX: I11.9 Hypertensive heart disease without heart failure (principal)
CPT/HCPCS: 36415; 80048

== ENCOUNTER 2024-07-05 07:31 | Outpatient (OUT) | payer MEDICARE, OTHER, SELFPAY ==
--- OUTSIDE RECORDS SUMMARY | 2024-07-05 07:36 | XMS_ITS | CCD ---
Author Organization [facility] Care Team Providers Care Home Economics Extension Worker Name Role Phone PHYSICIAN, DEFAULT Unavailable Unavailable [...] HOY ., DR MENDES Primary Care Unavailable [facility], DR JOSEPH Moyer Consulting Unavailable CELIO, QUINN [...] Attending Unavailable CELIO, QUINN Attending Unavailable Unavailable Primary Care Provider Unavailabl e VICKEYJOSSY LARESD F Attending Unavailable VICKEY, AHMAD F Attending Unavailable VICKEY, AHMAD F Referring Unavailable Unavailable Unavailable Unavailable Allergies Allergy Classification Reported Allergen(s) Allergy Type Date of Onset Reaction(s) Facility (2 sources) Sulfonamides (Antibiotic) Drug allergy (disorder) 03-23-2013 [facility] Repository (1 source) atorvastatin; Translations: [ATORVASTATIN] Drug Allergy 06-26-2023 [facility] Rep[facility] (1 source) rosuvastatin; Translations: [ROSUVASTATIN] Drug Allergy 06-26-2023 [facility] Medications Current Medications Medication Drug Class(es) Dates Sig (Normalized) Sig (Original) azelastine hydrochloride 0.137 mg/actuat metered dose nasal spray (5 sources) Histamine-1 Receptor Antagonist take 1 spray(s) nasal route in the morning azelastine (Astelin) 0.1 % nasal spray Administer 1 spray into each nostril in the morning and 1 spray before bedtime. Use in each nostril as directed. Active Continuous Glucose Funnel Coater (Dexcom G7 Funnel Coater) device (3 sources) Continuous Glucose Funnel Coater (Dexcom G7 Funnel Coater) device Active Continuous Glucose Sensor (Dexcom G7 Sensor) misc (3 sources) Continuous Glucose Sensor (Dexcom G7 Sensor) misc Active ezetimibe 10 mg oral tablet (3 sources) Dietary Cholesterol Absorption Inhibitor take 1 tablet by mouth once daily ezetimibe (Zetia) 10 MG tablet Take 10 mg by mouth Daily Active Glucagon (6 sources) Antihypoglycemic Agent Glucagon (GVOKE HYPOPEN 1-PACK SC) Inject under the skin Active Glucagon (GVOKE HYPOPEN 2-PACK SC) Inject under the skin Active insulin glargine 100 unt/ml injectable solution (10 sources) Insulin Analog insulin glargine (Lantus) 100 UNIT/ML injection Inject under the skin at bedtime Active inject 20 [IU] by louis bcutaneous injection at bedtime, then inject 16 [IU] by subcutaneous injection in the morning insulin glargine (Lantus) 100 UNIT/ML injection Inject under the skin at bedtime 20 UNITS IN THE MORNING 16 UNITS IN THE EVENING Active 3 ml insulin lispro 50 unt/ml / insulin lispro protamine, human 50 unt/ml pen injector (5 sources) Insulin Analog insulin lispro protamine-insulin lispro (HumaLOG MIX 50/50 KWIKPEN) (50-50) 100 UNIT/ML injection Inject under the skin 2 (two) times a day with meals SLIDING SCALE Active simvastatin 40 mg oral tablet (5 sources) HMG-CoA Reductase Inhibitor take 1 tablet by mouth at bedtime simvastatin (Zocor) 40 MG tablet Take 40 mg by mouth at bedtime Active tadalafil 5 mg oral tablet (3 sources) Phosphodiesterase 5 Inhibitor take 1 tablet by mouth once daily tadalafil (Cialis) 5 MG tablet Take 5 mg by mouth Daily Active Problems Active Problems Problem Classification Problem Date Documented Da te Episodic/Chronic Administrative/social admission (4 sources) Patient encounter status; Translations: [Dietary counseling and surveillance] 02-29-2024 Episodic Cardiac dysrhythmias (2 sources) Ventricular premature depolarization; Translations: [Ventricular premature depolarization] Onset: 06-26-2023 Chronic Coronary atherosclerosis and other heart disease (6 sources) Other forms of angina pectoris; Translations: [Atherosclerotic heart disease of [place] coronary artery without angina pectoris] Onset: 04-23-2022 Chronic Diabetes mellitus with complications (10 sources) Hyperglycemia due to type 2 diabetes mellitus; Translations: [Type 2 diabetes mellitus with hyperglycemia] 11-16-2023 Chronic Disorders of lipid metabolism (10 sources) Mixed hyperlipidemia; Translations: [Mixed hyperlipidemia] Onset: 02-19-2022 Chronic Nutritional deficiencies (4 sources) Vitamin D deficiency; Translations: [Vitamin D deficiency, unspecified] 02-29-2024 Chronic Other aftercare (4 sources) Long-term current use of insulin; Translations: [care home (current) use of insulin] 02-29-2024 Episodic Other endocrine disorders (4 sources) Hypoglycemia; Translations: [Hypoglycemia, unspecified] 02-29-2024 Chronic Other screening for suspected conditions (not mental disorders or infectious disease) (4 sources) Abnormal result of other cardiovascular function study; Translations: [ABNORM RESULT OT CV FUNCTION STUDY] Onset: 03-31-2022 Episodic Unclassified (3 sources) CONTACT W/AND (SUSP) EXPOS COVID-19; Translations: [CONTACT W/AND (SUSP) EXPOS COVID-19] Onset: 07-19-2021 Unclassified (2 sources) Hypoglycemia, unspecified; Translations: [Hypoglycemia, unspecified] Onset: 08-02-2023 Past or Other Problems Problem Classification Problem Date Documented Da te Episodic/Chronic Other lower respiratory disease (6 sources) Other forms of dyspnea; Translations: [OTHER FORMS OF DYSPNEA] Onset: 02-19-2022 Episodic Other lower respiratory disease (4 sources) Dyspnea, unspecified; Translations: [DYSPNEA UNSPECIFIED] Onset: 03-05-2022 Episodic Residual codes; unclassified (2 sources) Other specified health status; Translations: [Other specified health status] Onset: 06-26-2023 Episodic Unclassified (1 source) CONTACT W/AND (SUSP) EXPOS COVID-19; Translations: [CONTACT W/AND (SUSP) EXPOS COVID-19] Onset: 07-15-2021 Results Test Name Value Interpretation Reference Range Facility Glucose (Bld) [Mass/Vol]on 0 06-27-2024 Glucose Blood, POC 135 mg/dL [facility] Interpretation and review of laboratory results Normal [facility] HbA1c (Bld) [Mass fraction]o n 06-27-2024 Interpretation and review of laboratory results Abnormal [facility] Laboratory - Hematology and Cell countson 06-27-2024 HbA1c (Bld) [Mass fraction] 7.6 % [facility] No Panel Informationon 06-27 [facility] Glucose (Bld) [Mass/Vol]Orde red By: Lanie Steen on 02-29-2024 Glucose Blood, POC 195 mg/dL [facility] Laboratory - Hematology and Cell countson 02-29-2024 HbA1c (Bld) [Mass fraction] 7.8 % [facility] No Panel InformationOrdered By: Lanie Steen on 02-29-2024 [facility] 36on 10-09-2023 36 Patient made aware. Normal [facility] 36on 10-07-2023 36 Patient was unable to tolerate atorvastatin and rosuvastatin. He has been taking simvastatin for the past 6 weeks. He is also taking Zetia, NO Repatha. I wanted to know if Leqvio would be good for him, but can you take a look at his levels? Aren't they exactly where they need to be? Does he even need Leqvio? Please advise. Thanks! Normal [facility] Orders Onlyon 10-07-2023 Orders Only [id number] Brody West 1955 M Date Provider Department Center 10/07/2023 HENRY FRIAS Family History Problem Relation Age of Onset ALS Mother Coronary artery disease Father Other Father Coronary artery disease Brother Other Brother Family Status - Relation Status Age at Mother Father Brother Normal [facility] 36on 08-28-[address] Garcia, restart patient on simvastatin 40mg daily and see if he qualifies for Repatha with his insurance. RX's sent to [facility]. Patient made aware. Normal [facility] BEDSIDE GLUCOSEon 08-02-2023 Glucose [Mass/Vol] 266 mg/dL High 70-99 [facility] Comment on above: Performed By: #### N PGLU #### Scarlett Reynolds ([id number]) [facility] [id number] [place] [id number] Glucose [Mass/Vol] 143 mg/dL High 70-99 [facility] Comment on above: Performed By: #### N PGLU #### Scarlett Reynolds ([id number]) [facility] [id number] [place] [id number] ED PROV NOTEon 08-02-2023 ED PROV NOTE [employer] Authentication Interface Message Text [facility] EMERGENCY DEPARTMENT ED Encounter Arrival Date: 08/02/23405 Brody West : 1955 No address on file. CSN: [id number] DAVID: [id number] EMERGENCY DEPARTMENT - GENERAL NOTE CHIEF COMPLAINT Chief Complaint Patient presents with Hypoglycemia HPI Brody West is a 68 year old male who presents hypoglycemic reaction. Patient was acting weird when he woke up his , checked his sugar it was 44. Called EMS. Patient was given orange juice, blood sugar went back up, signed refusal. Shortly thereafter was having a Clarimedix jelly sandwich and then his blood sugar [...] presents with Hypoglycemia Differential Diagnosis: Hypoglycemia, sepsis, ID Patient has the following Problem List: There are no problems to display for this patient. External Records: External records reviewed and show: OARRS/INSPECT/MARYANN have not been reviewed for this patient. Work up and therapy ordered during this encounter: Pertinent Labs & Imaging studies reviewed. (See EDCourse for det (more content not included)... Normal [facility] Office Visiton 06-26-2023 Follow-up visit [id number] Brody West 1955 M Date Provider Department Center 06/26/2023 QUINN SAHNI HARJINDER Sanchez Family History Problem Relation Age of Onset ALS Mother Coronary artery disease Father Other Father Coronary artery disease Brother Other Brother Family Status - Relation Status Age at Mother Father Brother Level of Service:16789 MT OFFICE/OUTPATIENT ESTABLISHED MOD MDM 30 MIN Normal [facility] Orders Onlyon 06-08-2023 Orders Only [id number] Brody West 1955 M [facility] Provider Department Center 06/08/2023 UCHE TRAORE HARJINDER Sanchez Family History Problem Relation Age of Onset ALS Mother Coronary artery disease Father Other Father Coronary artery disease Brother Other Brother Family Status - Relation Status Age at Mother Father Brother Normal [facility] LIPID PROFILEon 07-01-2022 CHOL-HDL RATIO NORM SEE BELOW Normal [facility] Comment on above: Result Comment: 3.3 - 4.4 LOW RISK 4.4 - 7.1 AVERAGE RISK 7.1 - 11.0 MODERATE RISK >11.0 HIGH RISK Performed By: #### L IPID #### [facility] [address], [place] [address] Dr. Julio Leon Cholesterol [Mass/Vol] 109 mg/dL Normal <=200 [facility] Comment on above: Performed By: #### L IPID #### [facility] [address], [place] [address] Dr. Julio Leon Cholesterol in HDL [Mass/Vol] 48 mg/dL Normal 40-60 [facility] Comment on above: Performed By: #### L IPID #### [facility] [address] [address] [address] Julio Leon Cholesterol in LDL [Mass/Vol] 49.6 mg/dL Normal [facility] Comment on above: Performed By: #### L IPID #### [facility] [address] [address] [address] Julio Leon Cholesterol.total/Nory sterol in HDL [Mass ratio] 2.3 {ratio} Normal [facility] Comment on above: Performed By: #### L IPID #### [facility] [address] [address] [address] Julio Leon HDL NORMAL > or = 60 mg/dl - LOW CARDIOVASCULAR RISK <40 mg/dl - HIGH CARDIOVASCULAR RISK Normal [facility] Comment on above: Performed By: #### L IPID #### [facility] [address] [address] [address] Julio Leon LDL CALC NORMAL SEE BELOW Normal [facility] Comment on above: Result Comment: <100 mg/dl OPTIMAL 100 - 129 mg/dl NEAR OR ABOVE OPTIMAL 130 - 159 mg/dl BORDERLINE HIGH 160 - 189 mg/dl HIGH >190 mg/dl VERY HIGH Performed By: #### L IPID #### [facility] [address] [address] [address] Julio Leon Triglyceride [Mass/Vol] 57 mg/dL Normal <=150 [facility] Comment on above: Performed By: #### L IPID #### [facility] [address] [address] [address] Julio Leon VLDL CALC 11.4 mg/dL Normal [facility] Comment on above: Performed By: #### L IPID #### [facility] [address] [place] [address] Dr. Julio Leon CBC AUTO DIFFon 03-31-2022 BASO # 0.1 103/ul Normal 0.0-0.1 [facility] Comment on above: Performed By: #### C BC #### [facility] [address] [place] [address] Dr. Julio Leon Basophils/100 WBC (Bld) 1.4 % Normal 0.2-2.0 [facility] Comment on above: Performed By: #### C BC #### [facility] [address] [place] [address] Dr. Julio Leon EO # 0.1 103/ul Normal 0.0-0.7 [facility] Comment on above: Performed By: #### C BC #### [facility] [address] [place] [address] Dr. Julio Leon Eosinophils/100 WBC (Bld) 2.0 % Normal 0.9-7.0 [facility] Comment on above: Performed By: #### C BC #### [facility] [address] [place] [address] Dr. Julio Leon Erythrocyte distribution width (RBC) [Ratio] 12.5 % Normal 11.0-15.0 [facility] Comment on above: Performed By: #### C BC #### [facility] [address] [place] [address] Dr. Julio Leon Hematocrit (Bld) [Volume fraction] 43.0 % Normal 42.0-54.0 [facility] Comment on above: Performed By: #### C BC #### [facility] [address] [place] [address] Dr. Julio Leon Hemoglobin (Bld) [Mass/Vol] 14.1 g/dL Normal 14.0-18.0 [facility] Comment on above: Performed By: #### C BC #### [facility] [address] [place] [address] Dr. Julio Leon IG # 0.01 10e3/ul Normal 0.00-0.03 [facility] Comment on above: Performed By: #### C BC #### [facility] [address] [place] [address] Dr. Julio Leon IG % 0.2 % Normal 0.0-0.5 [facility] Comment on above: Performed By: #### C BC #### [facility] [address] [place] [address] Dr. Julio Leon LYMPH # 1.4 103/ul Normal 1.2-3.8 [facility] Comment on above: Performed By: #### C BC #### [facility] [address] [place] [address] Dr. Julio Leon Lymphocytes/100 WBC (Bld) 28.1 % Normal 20.5-60.0 [facility] Comment on above: Performed By: #### C BC #### [facility] [address] [place] [address] Dr. Julio Leon MANUAL DIFF REQ NO Normal [facility] Comment on above: Performed By: #### C BC #### [facility] [address] [place] [address] Dr. Julio Leon MCH (RBC) [Entitic mass] 30.1 pg Normal 25.9-34.0 [facility] Comment on above: Performed By: #### C BC #### [facility] [address] [place] [address] Dr. Julio Leon MCHC (RBC) [Mass/Vol] 32.8 g/dL Normal 29.9-35.2 [facility] Comment on above: Performed By: #### C BC #### [facility] [address] [place] [address] Dr. Julio Leon MCV (RBC) [Entitic vol] 91.9 fL Normal 80.0-94.0 [facility] Comment on above: Performed By: #### C BC #### [facility] [address] [place] [address] Dr. Julio Leon MONO # 0.5 103/ul Normal 0.3-0.8 [facility] Comment on above: Performed By: #### C BC #### [facility] [address] [address] [address] Julio Leon Monocytes/100 WBC (Bld) 9.8 % Normal 1.7-12.0 [facility] Comment on above: Performed By: #### C BC #### [facility] [address] [address] [address] Julio Leon NEUT # 3.0 103/ul Normal 1.4-6.5 [facility] Comment on above: Performed By: #### C BC #### [facility] [address] [address] [address] Julio Leon Neutrophils/100 WBC (Bld) 58.5 % Normal 43.0-75.0 [facility] Comment on above: Performed By: #### C BC #### [facility] [address] [place] [address] Dr. Julio Leon Platelet mean volume (Bld) [Entitic vol] 9.6 fL Normal 9.5-13.5 [facility] Comment on above: Performed By: #### C BC #### [facility] [address] [place] [address] Dr. Julio Leon PLT 267 103/ul Normal 150-450 [facility] Comment on above: Performed By: #### C BC #### [facility] [address] [place] [address] Dr. Julio Leon RBC 4.68 106/ul Critically low 4.70-6.10 [facility] Comment on above: Performed By: #### C BC #### [facility] [address] [place] [address] Dr. Julio Leon WBC 5.1 103/ul Normal 4.0-11.0 [facility] Comment on above: Performed By: #### C BC #### [facility] [address] [place] [address] Dr. Julio Leon PROF CHEM 8 (BAS METB)on Anion gap [Moles/Vol] 11.6 mmol/L Normal [facility] Comment on above: Performed By: #### B MP #### [facility] [address] [address] [address] Julio Leon Calcium [Mass/Vol] 9.3 mg/dL Normal 8.5-10.1 [facility] Comment on above: Performed By: #### B MP #### [facility] [address] [address] [address] Julio Leon Chloride [Moles/Vol] 101 mmol/L Normal 98-107 [facility] Comment on above: Performed By: #### B MP #### [facility] [address] [address] [address] Julio Leon CO2 [Moles/Vol] 27.8 mmol/L Normal 21.0-32.0 [facility] Comment on above: Performed By: #### B MP #### [facility] [address] [place] [address] Dr. Julio Leon Creatinine [Mass/Vol] 0.95 mg/dL Normal 0.70-1.30 [facility] Comment on above: Performed By: #### B MP #### [facility] [address] [address] [address] Julio Leon EGFR-AF ETHIOPIAN >60 Normal >=60 [facility] Comment on above: Performed By: #### B MP #### [facility] [address] [place] [address] Dr. Julio Leon EGFR-NON AF ETHIOPIAN >60 Normal >=60 [facility] Comment on above: Performed By: #### B MP #### [facility] [address] [address] [address] Julio Leon Glucose [Mass/Vol] 80 mg/dL Normal 74-106 [facility] Comment on above: Performed By: #### B MP #### [facility] [address] [address] [address] Julio Leon Potassium [Moles/Vol] 4.4 mmol/L Normal 3.5-5.1 [facility] Comment on above: Performed By: #### B MP #### [facility] [address] [address] [address] Julio Leon Sodium [Moles/Vol] 136 mmol/L Normal 136-145 [facility] Comment on above: Performed By: #### B MP #### [facility] [address] [address] [address] Julio Leon Urea nitrogen [Mass/Vol] 14.0 mg/dL Normal 7.0-18.0 [facility] Comment on above: Performed By: #### B MP #### [facility] [address] [address] [address] Julio Leon Urea nitrogen/Creatinine [Mass ratio] 14.7 mg/mg Normal [facility] Comment on above: Performed By: #### B MP #### [facility] [address] [address] [address] Julio Leon NM STRESS/REST MULTIon 03-12 NM STRESS/REST MULTI Patient: BRODY WEST Exam Date: 03/12/2022 : 1955 Gender:M Ordering : QUINN PICKENS Admission #: [id number] Family : DR CINTHYA MORELOS . Order #: [id number] CLICK HERE TO VIEW EXAM RADIOLOGY REPORT [...] MD on 03/12/2022 at 14:20 Normal [facility] ECHOCARDIO M/2D COMPLETEon 1 05-05-2021 ECHOCARDIO M/2D COMPLETE Patient: BRODY WEST Exam Date: 03/05/2022 : 1955 Gender:M Ordering : QUINN PICKENS Admission #: [id number] Family : DR CINTHYA MORELOS . Order #: [id number] CLICK HERE TO VIEW EXAM ECHOCARDIOGRAM REPORT [...] M.D. on 03/05/2022 at 18:14 Normal [facility] CBC AUTO DIFFon 02-21-2022 BASO # 0.1 103/ul Normal 0.0-0.1 [facility] Comment on above: Performed By: #### C BC #### [facility] [address] [place] [address] Dr. Julio Leon Basophils/100 WBC (Bld) 1.2 % Normal 0.2-2.0 [facility] Comment on above: Performed By: #### C BC #### [facility] [address] [place] [address] Dr. Julio Leon EO # 0.1 103/ul Normal 0.0-0.7 [facility] Comment on above: Performed By: #### C BC #### [facility] [address] [place] [address] Dr. Julio Leon Eosinophils/100 WBC (Bld) 3.2 % Normal 0.9-7.0 [facility] Comment on above: Performed By: #### C BC #### [facility] [address] [place] [address] Dr. Julio Leon Erythrocyte distribution width (RBC) [Ratio] 12.7 % Normal 11.0-15.0 [facility] Comment on above: Performed By: #### C BC #### [facility] [address] [place] [address] Dr. Julio Leon Hematocrit (Bld) [Volume fraction] 39.3 % Critically low 42.0-54.0 [facility] Comment on above: Performed By: #### C BC #### [facility] [address] [place] [address] Dr. Julio Leon Hemoglobin (Bld) [Mass/Vol] 13.1 g/dL Critically low 14.0-18.0 [facility] Comment on above: Performed By: #### C BC #### [facility] [address] [place] [address] Dr. Julio Leon IG # 0.01 10e3/ul Normal 0.00-0.03 [facility] Comment on above: Performed By: #### C BC #### [facility] [address] [place] [address] Dr. Julio Leon IG % 0.2 % Normal 0.0-0.5 [facility] Comment on above: Performed By: #### C BC #### [facility] [address] [place] [address] Dr. Julio Leon LYMPH # 1.3 103/ul Normal 1.2-3.8 [facility] Comment on above: Performed By: #### C BC #### [facility] [address] [place] [address] Dr. Julio Leon Lymphocytes/100 WBC (Bld) 32.4 % Normal 20.5-60.0 [facility] Comment on above: Performed By: #### C BC #### [facility] [address] [place] [address] Dr. Julio Leon MANUAL DIFF REQ NO Normal [facility] Comment on above: Performed By: #### C BC #### [facility] [address] [place] [address] Dr. Julio Leon MCH (RBC) [Entitic mass] 30.8 pg Normal 25.9-34.0 [facility] Comment on above: Performed By: #### C BC #### [facility] [address] [place] [address] Dr. Julio Leon MCHC (RBC) [Mass/Vol] 33.3 g/dL Normal 29.9-35.2 [facility] Comment on above: Performed By: #### C BC #### [facility] [address] [place] [address] Dr. Julio Leon MCV (RBC) [Entitic vol] 92.3 fL Normal 80.0-94.0 [facility] Comment on above: Performed By: #### C BC #### [facility] [address] [place] [address] Dr. Julio Leon MONO # 0.5 103/ul Normal 0.3-0.8 [facility] Comment on above: Performed By: #### C BC #### [facility] [address] [place] [address] Dr. Julio Leon Monocytes/100 WBC (Bld) 11.2 % Normal 1.7-12.0 [facility] Comment on above: Performed By: #### C BC #### [facility] [address] [place] [address] Dr. Julio Leon NEUT # 2.1 103/ul Normal 1.4-6.5 [facility] Comment on above: Performed By: #### C BC #### [facility] [address] [address] [address] Julio Leon Neutrophils/100 WBC (Bld) 51.8 % Normal 43.0-75.0 [facility] Comment on above: Performed By: #### C BC #### [facility] [address] [address] [address] Julio Leon Platelet mean volume (Bld) [Entitic vol] 10.0 fL Normal 9.5-13.5 [facility] Comment on above: Performed By: #### C BC #### [facility] [address] [address] [address] Julio Leon PLT 232 103/ul Normal 150-450 [facility] Comment on above: Performed By: #### C BC #### [facility] [address] [address] [address] Julio Leon RBC 4.26 106/ul Critically low 4.70-6.10 [facility] Comment on above: Performed By: #### C BC #### [facility] [address] [address] [address] Julio Leon WBC 4.0 103/ul Normal 4.0-11.0 [facility] Comment on above: Performed By: #### C BC #### [facility] [address] [place] [address] Dr. Julio Leon LIPID PROFILEon 02-21-2022 CHOL-HDL RATIO NORM SEE BELOW Normal [facility] Comment on above: Result Comment: 3.3 - 4.4 LOW RISK 4.4 - 7.1 AVERAGE RISK 7.1 - 11.0 MODERATE RISK >11.0 HIGH RISK Performed By: #### L IPID, TSH, CMP #### [facility] [address] [address] [address] Julio Leon Cholesterol [Mass/Vol] 132 mg/dL Normal <=200 [facility] Comment on above: Performed By: #### L IPID, TSH, CMP #### [facility] [address] [address] [address] Julio Leon Cholesterol in HDL [Mass/Vol] 46 mg/dL Normal 40-60 [facility] Comment on above: Performed By: #### L IPID, TSH, CMP #### [facility] [address] [address] [address] Julio Leon Cholesterol in LDL [Mass/Vol] 71.4 mg/dL Normal [facility] Comment on above: Performed By: #### L IPID, TSH, CMP #### [facility] [address] [address] [address] Julio Leon Cholesterol.total/Nory sterol in HDL [Mass ratio] 2.9 {ratio} Normal [facility] Comment on above: Performed By: #### L IPID, TSH, CMP #### [facility] [address] [address] [address] Julio Leon HDL NORMAL > or = 60 mg/dl - LOW CARDIOVASCULAR RISK <40 mg/dl - HIGH CARDIOVASCULAR RISK Normal [facility] Comment on above: Performed By: #### L IPID, TSH, CMP #### [facility] [address] [address] [address] Julio Leon LDL CALC NORMAL SEE BELOW Normal [facility] Comment on above: Result Comment: <100 mg/dl OPTIMAL 100 - 129 mg/dl NEAR OR ABOVE OPTIMAL 130 - 159 mg/dl BORDERLINE HIGH 160 - 189 mg/dl HIGH >190 mg/dl VERY HIGH Performed By: #### L IPID, TSH, CMP #### [facility] [address] [address] [address] Julio Leon Triglyceride [Mass/Vol] 73 mg/dL Normal <=150 T [facility] Comment on above: Performed By: #### L IPID, TSH, CMP #### [facility] [address] [address] [address] Julio Leon VLDL CALC 14.6 mg/dL Normal [facility] Comment on above: Performed By: #### L IPID, TSH, CMP #### [facility] [address] [address] [address] Julio Leon PROF 14(COMP METB)on 022 Albumin [Mass/Vol] 3.7 g/dL Normal 3.4-5.0 [facility] Comment on above: Performed By: #### L IPID, TSH, CMP #### [facility] [address] [address] [address] Julio Leon Albumin/Globulin [Mass ratio] 1.1 {ratio} Normal [facility] Comment on above: Performed By: #### L IPID, TSH, CMP #### [facility] [address] [place] [address] Dr. Julio Leon ALP [Catalytic activity/Vol] 53 U/L Normal 46-116 [facility] Comment on above: Performed By: #### L IPID, TSH, CMP #### [facility] [address] [place] [address] Dr. Julio Leon ALT [Catalytic activity/Vol] 21 U/L Normal 16-63 [facility] Comment on above: Performed By: #### L IPID, TSH, CMP #### [facility] [address] [place] [address] Dr. Julio Leon Anion gap [Moles/Vol] 8.8 mmol/L Normal [facility] Comment on above: Performed By: #### L IPID, TSH, CMP #### [facility] [address] [place] [address] Dr. Julio Leon AST [Catalytic activity/Vol] 15 U/L Normal 15-37 [facility] Comment on above: Performed By: #### L IPID, TSH, CMP #### [facility] [address] [place] [address] Dr. Julio Leon Bilirubin [Mass/Vol] 0.5 mg/dL Normal 0.2-1.0 [facility] Comment on above: Performed By: #### L IPID, TSH, CMP #### [facility] [address] [place] [address] Dr. Julio Leon Calcium [Mass/Vol] 8.6 mg/dL Normal 8.5-10.1 [facility] Comment on above: Performed By: #### L IPID, TSH, CMP #### [facility] [address] [place] [address] Dr. Julio Leno Chloride [Moles/Vol] 104 mmol/L Normal 98-107 [facility] Comment on above: Performed By: #### L IPID, TSH, CMP #### [facility] [address] [address] [address] Julio Leon CO2 [Moles/Vol] 31.3 mmol/L Normal 21.0-32.0 [facility] Comment on above: Performed By: #### L IPID, TSH, CMP #### [facility] [address] [address] [address] Julio Leon Creatinine [Mass/Vol] 1.03 mg/dL Normal 0.70-1.30 [facility] Comment on above: Performed By: #### L IPID, TSH, CMP #### [facility] [address] [place] [address] Dr. Julio Leon EGFR-AF ETHIOPIAN >60 Normal >=60 [facility] Comment on above: Performed By: #### L IPID, TSH, CMP #### [facility] [address] [place] [address] Dr. Julio Leon EGFR-NON AF ETHIOPIAN >60 Normal >=60 [facility] Comment on above: Performed By: #### L IPID, TSH, CMP #### [facility] [address] [place] [address] Dr. Julio Leon Globulin (S) [Mass/Vol] 3.5 g/dL Normal [facility] Comment on above: Performed By: #### L IPID, TSH, CMP #### [facility] [address] [place] [address] Dr. Julio Leon Glucose [Mass/Vol] 78 mg/dL Normal 74-106 [facility] Comment on above: Performed By: #### L IPID, TSH, CMP #### [facility] [address] [address] [address] Julio Leon Potassium [Moles/Vol] 4.1 mmol/L Normal 3.5-5.1 [facility] Comment on above: Performed By: #### L IPID, TSH, CMP #### [facility] [address] [address] [address] Julio Leon Protein [Mass/Vol] 7.2 g/dL Normal 6.4-8.2 [facility] Comment on above: Performed By: #### L IPID, TSH, CMP #### [facility] [address] [address] [address] Julio Leon Sodium [Moles/Vol] 140 mmol/L Normal 136-145 [facility] Comment on above: Performed By: #### L IPID, TSH, CMP #### [facility] [address] [address] [address] Julio Leon Urea nitrogen [Mass/Vol] 12.0 mg/dL Normal 7.0-18.0 [facility] Comment on above: Performed By: #### L IPID, TSH, CMP #### [facility] [address] [place] [address] Dr. Julio Leon Urea nitrogen/Creatinine [Mass ratio] 11.7 mg/mg Normal [facility] Comment on above: Performed By: #### L IPID, TSH, CMP #### [facility] [address] [address] [address] Julio Leon TSHon 02-21-2022 TSH 1.278 uIU/mL Normal 0.358-3.740 [facility] Comment on above: Performed By: #### L IPID, TSH, CMP ####[facility] [id number] [address] Julio Leon [facility] SARS-CoV-2 (COVID-19) RNA OLIMPIA+probe Ql (Unsp spec) Not detected Normal NOT DETECTED [facility] Comment on above: Result Comment: When diagnostic testing is negative, the possibility of a false negative should be considered in the context of a patient's recent exposures and the presence of clinical signs and symptoms consistent with SARS-CoV-2. This test is not yet approved or cleared by the [place] Food and Drug Administration (FDA). This test was developed by [employer], [place], [place]. The performance characteristics of this test were validated by [facility]. The results are not intended to be used as the sole means for clinical diagnosis or patient management decisions. [facility] is authorized under Clinical Laboratory Improvement Amendments [...] for this test is supported by the [place] of Health and Human Service's declaration that [...] longer be used). Performed By: #### C [facility] ####[facility] [address] [place], [place] [address]Ka. Julio Leon Outside Colonoscopyon 2019 Outside Colonoscopy [id number] #1.00CD:127 Normal [facility] Lab Reportson 11-07-2019 Lab Reports [id number] #1.00CD:127 Normal [facility] Consenton 11-03-2019 Consent [id number] #1.00CD:127 Normal [facility] Ambulatory Clinical Summaryo n 10-26-2019 Ambulatory Clinical Summary {[id number]}CD:[id number] [facility] Physician Referralon 020 Physician Referral [id number] #1.00CD:127 [facility] Vital Signs Date Time Vital Sign Value Performing Clinician Faci lity 06-27-2024 13:20-0500 Body height 180.3 cm Judie Hurd MD Work Phone: [facility] 06-27-2024 13:20-0500 Body mass index (BMI) [Ratio] 27.34 kg/m2 Judie Hurd MD Work Phone: [facility] 06-27-2024 13:20-0500 Body weight 88.91 kg Judie Hurd MD Work Phone: [facility] 06-27-2024 13:20-0500 Diastolic blood pressure 70 mm[Hg] Judie Hurd MD Work Phone: [facility] 06-27-2024 13:20-0500 Heart rate 59 /min Judie Hurd MD Work Phone: [facility] 06-27-2024 13:20-0500 Respiratory rate 16 /min Judie Hurd MD Work Phone: [facility] 06-27-2024 13:20-0500 SaO2% (BldA) [Mass fraction] 95 % Judie Hurd MD Work Phone: [facility] 06-27-2024 13:20-0500 Systolic blood pressure 124 mm[Hg] Judie Hurd MD Work Phone: [facility] 02-29-2024 13:55-0500 Body height 180.3 cm Judie Hurd MD Work Phone: [facility] 02-29-2024 13:55-0500 Body mass index (BMI) [Ratio] 26.92 kg/m2 Judie Hurd MD Work Phone: [facility] 02-29-2024 13:55-0500 Body weight 87.54 kg Judie Hurd MD Work Phone: [facility] 02-29-2024 13:55-0500 Diastolic blood pressure 64 mm[Hg] Judie Hurd MD Work Phone: [facility] 02-29-2024 13:55-0500 Heart rate 60 /min Judie Hurd MD Work Phone: [facility] 02-29-2024 13:55-0500 Respiratory rate 16 /min Judie Hurd MD Work Phone: [facility] 02-29-2024 13:55-0500 Systolic blood pressure 124 mm[Hg] Judie Hurd MD Work Phone: [facility] Healthcare Encounters Encounter Date Encounter Type Care Provider Facility Start: 06-27-2024 End: 06-27-2024 Bamboo flowsheet Judie Hurd MD Work Phone: [facility] Start: 06-27-2024 End: 06-27-2024 Bamboo flowsheet Judie Hurd MD Work Phone: [facility] Start: 06-27-2024 End: 06-27-2024 Office outpatient visit 25 minutes Judie Hurd MD Work Phone: [facility] Comment on above: Type 1 diabetes andre itus with hyperglycemia (HCC) (CMS/HCC) (Primary Dx); Insulin long-term use (CMS/HCC); Encounter for dietary consultation; Vitamin D deficiency; Hyperlipemia, mixed (CMS/HCC); Hypoglycemia Start: 06-27-2024 End: 06-27-2024 ambulatory JUDIE HURD Not Available Start: 02-29-2024 End: 02-29-2024 Office outpatient visit 25 minutes Judie Hurd MD Work Phone: [facility] Comment on above: Type 1 diabetes andre itus with hyperglycemia (HCC) (CMS/HCC) (Primary Dx); Insulin long-term use (CMS/HCC); Encounter for dietary consultation; Vitamin D deficiency; Hyperlipemia, mixed (CMS/HCC); Hypoglycemia Start: 02-29-2024 End: 02-29-2024 ambulatory JUDIE HURD Not Available Start: 02-09-2024 End: 02-09-2024 ambulatory [facility] Work Phone: Start: 02-09-2024 End: 02-09-2024 Patient encounter procedure [facility] Work Phone: Start: 12-16-2023 End: 12-16-2023 ambulatory [facility] Work Phone: Start: 12-16-2023 End: 12-16-2023 Patient encounter procedure [facility] Work Phone: Start: 11-16-2023 End: 11-16-2023 ambulatory [facility] Work Phone: Start: 11-16-2023 End: 11-16-2023 Patient encounter procedure [facility] Work Phone: Start: 08-02-2023 End: 08-02-2023 Emergency department patient visit [facility] Start: 06-26-2023 End: 06-26-2023 ambulatory QUINN PICKENS [facility] Start: 07-01-2022 End: 07-02-[address] DIDI GARCIA Facility:[facility] Start: 04-23-2022 End: 06-26-[address] DIDI GARCIA Facility:[facility] Start: 03-31-2022 End: 04-01-[address] DIDI GARCIA Facility:[facility] Start: 03-12-2022 End: 03-13-2022 ambulatory QUINN PICKENS Facility:[facility] Start: 03-05-2022 End: 03-06-2022 ambulatory QUINN PICKENS Facility:[facility] Start: 02-21-2022 End: 02-22-2022 ambulatory QUINN PICKENS Facility:[facility] Start: 07-15-2021 End: 07-16-[address] CINTHYA MORELOS . Facility:[facility] Start: 08-19-2017 End: 08-20-2017 Ambulatory DEFAULT PHYSICIAN Facility:[facility] Procedures Date Procedure Procedure Detail Performing Clinician Start: 06-27-2024 Gluc bld gluc mntr d ev cleared fda spec home use Judie Hurd MD Work Phone: Start: 02-29-2024 Gluc bld gluc mntr d ev cleared fda spec home use Judie Hurd MD Work Phone: Start: 02-21-2022 PSA screening QUINN YARBROUGH Comment on above: Performed By: #### P SAD #### [facility] [address] [place] [address] Dr. Julio Leon Plan of Treatment Date Care Activity Detail Author Start: 12-27-2024 End: 12-27-2024 Patient encounter procedure 12/27/2024 1:00 PM EDT Office Visit [facility] [address] [place] [address] Judie Hurd MD [address] [place] [address] [facility] Start: 06-27-2024 End: 06-27-2025 25-hydroxyvitamin D3 [Mass/volume] in Serum or Plasma Vitamin D 25 hydroxy Total Lab Routine Type 1 diabetes mellitus with hyperglycemia (HCC) ([facility]) Expected: 06/27/2024 (Approximate), Expires: 06/27/2025 [facility] Comment on above: Expected: 06/27/2024 (Approximate), Expires: 06/27/2025 Start: 06-27-2024 End: 06-27-2025 C-peptide C-peptide Lab Routine Type 1 diabetes mellitus with hyperglycemia (HCC) ([facility]) Expected: 06/27/2024 (Approximate), Expires: 06/27/2025 [facility] Work Phone: Comment on above: Expected: 06/27/2024 (Approximate), Expires: 06/27/2025 Start: 06-27-2024 End: 06-27-2025 Lipid 1996 panel - Serum or Plasma Lipid panel Lab Routine Type 1 diabetes mellitus with hyperglycemia (HCC) (CMS/HCC) Expected: 06/27/2024 (Approximate), Expires: 06/27/2025 [facility] Comment on above: Expected: 06/27/2024 (Approximate), Expires: 06/27/2025 Start: 06-27-2024 End: 06-27-2025 Microalbumin/Creatinin e panel in random Urine Microalbumin / creatinine urine ratio Lab Routine Type 1 diabetes mellitus with hyperglycemia (HCC) (CMS/HCC) Expected: 06/27/2024 (Approximate), Expires: 06/27/2025 [facility] Healthcare Comment on above: Expected: 06/27/2024 (Approximate), Expires: 06/27/2025 Start: 06-27-2024 End: 06-27-2025 Renal function panel Renal function panel Lab Routine Type 1 diabetes mellitus with hyperglycemia (HCC) ([facility]/HCC) Expected: 06/27/2024 (Approximate), Expires: 06/27/2025 [facility] Comment on above: Expected: 06/27/2024 (Approximate), Expires: 06/27/2025 Start: 06-27-2024 End: 06-27-2024 Patient encounter procedure [facility] Comment on above: Arrived Start: 2022 Pneumococcal Vaccine : 65+ Years (1 of 1 - PCV) Pneumococcal Vaccine: 65+ Years (1 of 1 - PCV) [facility] Start: 1955 Screening for malignant neoplasm of colon [facility] Payers Date Payer Category Payer Medicare (Managed Care) [facility] MEDICARE [id number] 2023 Medicare MEDICARE [id number] 2023 Medicare [id number] 2023 Unknown [id number] 1959 Unknown [id number] 1955 Unknown [id number]. 593 1957 Unknown [id number] [id number]. 593 1957 Unknown [id number]. 593 1957 Unknown [id number] [id number]. 593 1957 Unknown [id number] [id number]. 593 1957 Unknown [id number] [id number]. 593 1957 Unknown [id number] [id number]. 593 1957 Unknown [id number] [id number]. 1287 1957 Unknown [id number] [id number]. 1259 1957 Unknown [id number] [id number]. 1259 Self-pay Self Pay [id number] Unknown Social History Date Type Detail Facility Tobacco smoking stat [facility] Unknown if ever smoked [facility] Start: 1955 Sex Assigned At Male F [facility] Tobacco smoking stat [facility] Tobacco smoking consumption unknown [facility] Start: 02-11-2024 End: 06-27-2024 Alcoholic beverage intake Current drinker of alcohol (finding) [facility] Start: 1955 Sex assigned at Not on file [facility] Start: 06-27-2024 Gender identity Not on file [facility] Start: 06-27-[facility]24 [facility] Start: 06-27-2024 Tobacco use and exposure Smokeless tobacco non-user [facility] Start: 06-27-2024 Alcoholic beverage intake [facility] Goals Date Patient Goal Desired Activity /State Clinical Notes 03-12-2022 to 06-27-2024 Judie Hurd MD - 06/27/2024 1:20 PM Surendar Hurd MD - 02/29/2024 1:40 PM EST Note Date & Type Note Facility 06-27-2024 History of Present illness Narrative Brody West is a 69 y.o. male No ref. provider found presents with chief complaint of Diabetes HPI: Interim History: 06/2024 Follow-up visit on 06/27/2024 for type 1 diabetes. A1c 7.6, bg 135, Currently on lantus 23 units am and around 10 pm, Humalog 4-5 or ICR 1:10, CGM 0-41-59 AVG 208 Interim History: 02/2024 Follow-up visit on 02/29/2024 for type 1 diabetes. A1c 7.8, bg 195, Currently on lantus 20 units am and around 16 pm, Humalog 3-4-5 or ICR 1:10, and he is off metformin 500 twice a day. CGM 1-42-57 AVG 201. Interim History: 11/2023 Follow-up visit on 11/30/2023 for type 1 diabetes. A1c 7.9 on 09/2023, bg 162 in the office,, Currently on lantuis 15 units am and around 10 pm, Humalog 3-4-5 or ICR 1:10, and he is on metformin also 500 twice a day. he got G-voke Interim History: 08/2023 Follow-up visit on 09/15/2023 for type 1 diabetes. A1c 7, bg 181, Currently on Levemir 26 twice a day, Humalog 4-6-8 or ICR 1:10, and he is on metformin also 500 twice a day. dexcom 2-94-4 avg 123. HE RETIRED 03/2023 Interim History: 04/2023 Follow-up visit on 05/25/2023 for type 1 diabetes. A1c 6.3, bg 259, Currently on Levemir 26 once a day, Humalog 5 or ICR 1:10, and he is on metformin also 500 twice a day. dexcom 2-47-51 avg 187, had more lows now. Interim History: 01/2023 Follow-up visit on 02/09/2023 for type 1 diabetes. A1c 8.0, bg 164, Currently on Levemir 26 twice a day, Humalog 4-6 once or less on avg 6 bid, and he is on metformin also 500 twice a day. dexcom 2-43-55 avg 197. Interim History: 09/2022 Follow-up visit on 10/07/2022 for type 1 diabetes. A1c 8.0, bg 143, Currently on Levemir 26 twice a day, Humalog 4-6 once or less , and he is on metformin also 500 twice a day. dexcom 2-38-60 avg 198. crestor makes him a joint pain Interim History: 06/2022 Follow-up visit on 07/08/2022 for type 1 diabetes. A1c 7.5, bg 258, Currently on Levemir 26 twice a day, Humalog 6-8, and he is on metformin also 500 twice a day. dexcom 2-43-57 avg 197 Interim History: 03/2022 Follow-up visit on 04/07/2022 for type 1 diabetes. A1c 7.7, bg 102, Currently on Levemir 26 twice a day, Humalog 4-6, and he is on metformin also 500 twice a day. dexcom 1-68-29 avg 170 Interim History: 12/2021 Follow-up visit on 01/22/2022 for type 1 diabetes. A1c 8, bg 115, Currently on Levemir 26 twice a day, Humalog either 4-6, and he is on metformin also 500 twice a day. meter 35-251 avg 163 Interim History: 08/2021 Follow-up visit on 09/18/2021 for type 1 diabetes. A1c 8, bg 86, Currently on Levemir 26 twice a day, Humalog either 4-6, and he is on metformin also 500 twice a day. meter no readings Interim History: 05/2021 Follow-up visit on 06/19/2021 for type 1 diabetes. A1c 8.9, bg 173, Currently on Levemir 26 twice a day, Humalog either 2-4-6 or sometimes he try to do carb ratio 1:7, and he is on metformin also 500 twice a day. Interim History: 01/2021 Follow-up visit on 02/05/2021 for type 1 diabetes. Currently on Levemir 25 twice a day, Humalog either 2-4-6 or sometimes he try to do carb ratio 1:7, and he is on metformin also 500 twice a day. METER 63-263, AVG 147 Interim History: 09/2020 Follow-up visit on 10/15/2020 for type 1 diabetes. Currently on Levemir 25 twice a day, Humalog either 2-4-6 or sometimes he try to do carb ratio 1:7, and he is on metformin also 500 twice a day. Interim History: 06/2020 Follow-up visit on 07/04/2020 for type 1 diabetes. Currently on Levemir 25 twice a day, Humalog either 6/8/10 or sometimes he try to do carb ratio 1:7, and he is on metformin also 500 twice a day. meter 59-417, avg 207 Interim History: 03/2020 Follow-up visit on 04/10/20 for type 1 diabetes. Currently on Levemir 25 twice a day, Humalog either 6/8/10 or sometimes he try to do carb ratio 1:7, and he is on metformin also 500 twice a day. no meter today Interim History: 11/2019 Follow-up visit on 12/26/19 for type 1 diabetes. Currently on Levemir 23 twice a day, Humalog either 6/8/10 or sometimes he try to do carb ratio 1:7, and he is on metformin also 500 twice a day. meter lowest 36, highest 430, avg 201 Interim History: 07/2019 Follow-up visit on 08/17/19 for type 1 diabetes. Currently on Levemir 23 twice a day (exactly 12 hours apart try to do it), Humalog either 6/8/10 (and average 9 units breakfast, 5 units lunch, 9 units dinner) or sometimes he try to do carb ratio 1:7, and he is on metformin also 500 twice a day. Will send him new prescription. He say average blood sugar is 159. We saw him with telemedicine through [employer] today. Interim History 05/16 Followup visit on 05/18/2019 for type 1 diabetes. A1c in the office is 7.7. Log book lowest 57, highest 246. He is on Levemir 25 in the morning, 20 at bedtime, Humalog 6-8-10 plus scale #2 and metformin 500 twice a day. Lab done. Kidney function, BUN 16, creatinine 1.13, GFR above 60, total cholesterol 137, HDL 50, triglycerides 45, LDL 78. He is interested with diabetes class. Interim History 02/12: Followup visit 02/02/2019, for type 1 diabetes. His C-peptide is undetectable at 0.8, so we will claim him as a type 1. CGM interpretation 3%, in low range, 40 in good range, 57 in high range, average 196, standard deviation 67, blood sugar in office today 496. He is supposed to be on Levemir 35 now in the morning and Humalog 6-8-10 plus scale #2 plus metformin 500 twice a day. Lab done. Kidney function, BUN 16, creatinine 1.13, GFR above 60, total cholesterol 137, HDL 50, triglycerides 45, LDL 78. 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 He has diabetes since long time. His A1c was 13 running high, and last time in our office 8.8, blood sugar 63. He is on Levemir 25 twice a day and sliding scale Humalog barely used between 4 to 8 once or twice a day and his blood sugars running from 140 to 400 at home. He might have some eye issues, he is due for eye exam. No laser therapy so far. No heart disease. He has numbness and tingling. No ulcer of skin in feet. He has a small infection in his upper thigh and is on antibiotics for now. SUBJECTIVE: MEDICATIONS: Current Outpatient Medications Medication Instructions azelastine (Astelin) 0.1 % nasal spray 1 spray, 2 times daily Continuous Glucose Funnel Coater (Dexcom G7 Funnel Coater) device No dose, route, or frequency recorded. Continuous Glucose Sensor (Dexcom G7 Sensor) [facility] [place] dose, route, or frequency recorded. 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 (CMS/HCC) Mixed hyperlipidemia (CMS/HCC) Overweight Type 1 diabetes mellitus with hyperglycemia (HCC) (CMS/HCC) 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) Vitamin D deficiency, unspecified Past Surgical History: Procedure Laterality Date COLONOSCOPY ELBOW SURGERY 2007 for bone spu HEART CATH HERNIA REPAIR 1997 REVIEW OF SYMPTOMS: 14 POINT OF SYSTEM REVIEWED AND NEGATIVE OBJECTIVE: Constitutional: Afebrile @ home; no weakness or night sweats SKIN: No change in skin color; no itching, rash or lesions; no hair loss; HEENT: No HAs or injury; no dizziness; No difficulty with vision; no eye pain, discharge or lesions; no hearing loss or difficulty; no nasal discharge, NECK: No pain, limitation of motion, lumps or swollen glands RESP: No cough, wheezing or difficulty breathing. No CP with breathing; CARDIO: No CP , SOB or fatigue, No edema, palpitations or dyspnea with exertion GI: No N/V/D or abd. pain; good appetite with no recent change. No heart burn, liver or gallbladder disease; no rectal bleeding or pain : No urinary pain , frequency or odor. MUSCULOSKELETAL: No muscle pain or cramps; no extremity weakness.No joint pain, stiffness, swelling or limitation of movement NEUROLOGY: No H/O seizures, stroke or fainting. No weakness, tremors. Hematology: No bleeding problems or excessive bruising ENDOCRINE: No increase in hunger, thirst or urination; admits compliance to medical management plan Feet: numbness tingling , ulcers or skin break Lab Results Component Value Date HGBA1C 7\.6 06/27/2024 HGBA1C 7.8 02/29/2024 Lab Results Component Value Date GLU 135 06/27/2024 GLU 195 02/29/2024 Visit Vitals BP 124/70 Pulse 59 Resp 16 Ht 5' 11 Wt 196 lb SpO2 95% BMI 27.34 kg/m Smoking Status Never BSA 2.11 m ASSESSMENT AND PLAN: Assessment/Plan Diagnoses and all orders for this visit: Type 1 diabetes mellitus with hyperglycemia (HCC) ([facility]) - POCT glycosylated hemoglobin (Hb A1C) docked device - POCT glucose manually resulted - C-peptide; Future - Vitamin D 25 hydroxy Total; Future - Microalbumin / creatinine urine ratio; Future - Lipid panel; Future - Renal function panel; Future We will continue with Lantus 23 units in the morning, 10 at bedtime, Humalog insulin carb ratio 1:10 a.m., sliding scale 1 Insulin long-term use ([facility]) Encounter for dietary consultation Vitamin D deficiency Hyperlipemia, mixed ([facility]) Hypoglycemia Follow up in about 6 months (around 12/28/2024). documented in this encounter [facility] 02-29-2024 History of Present illness Narrative Brody West is a 69 y.o. male Judie Hurd MD presents with chief complaint of Diabetes and Follow-up HPI: Interim History: 02/2024 Follow-up visit on 02/29/2024 for type 1 diabetes. A1c 7.8, bg 195, Currently on lantus 20 units am and around 16 pm, Humalog 3-4-5 or ICR 1:10, and he is off metformin 500 twice a day. CGM 1-42-57 AVG 201. Interim History: 11/2023 Follow-up visit on 11/30/2023 for type 1 diabetes. A1c 7.9 on 09/2023, bg 162 in the office,, Currently on lantuis 15 units am and around 10 pm, Humalog 3-4-5 or ICR 1:10, and he is on metformin also 500 twice a day. he got G-voke Interim History: 08/2023 Follow-up visit on 09/15/2023 for type 1 diabetes. A1c 7, bg 181, Currently on Levemir 26 twice a day, Humalog 4-6-8 or ICR 1:10, and he is on metformin also 500 twice a day. dexcom 2-94-4 avg 123. HE RETIRED 03/2023 Interim History: 04/2023 Follow-up visit on 05/25/2023 for type 1 diabetes. A1c 6.3, bg 259, Currently on Levemir 26 once a day, Humalog 5 or ICR 1:10, and he is on metformin also 500 twice a day. dexcom 2-47-51 avg 187, had more lows now. Interim History: 01/2023 Follow-up visit on 02/09/2023 for type 1 diabetes. A1c 8.0, bg 164, Currently on Levemir 26 twice a day, Humalog 4-6 once or less on avg 6 bid, and he is on metformin also 500 twice a day. dexcom 2-43-55 avg 197. Interim History: 09/2022 Follow-up visit on 10/07/2022 for type 1 diabetes. A1c 8.0, bg 143, Currently on Levemir 26 twice a day, Humalog 4-6 once or less , and he is on metformin also 500 twice a day. dexcom 2-38-60 avg 198. crestor makes him a joint pain Interim History: 06/2022 Follow-up visit on 07/08/2022 for type 1 diabetes. A1c 7.5, bg 258, Currently on Levemir 26 twice a day, Humalog 6-8, and he is on metformin also 500 twice a day. dexcom 2-43-57 avg 197 Interim History: 03/2022 Follow-up visit on 04/07/2022 for type 1 diabetes. A1c 7.7, bg 102, Currently on Levemir 26 twice a day, Humalog 4-6, and he is on metformin also 500 twice a day. dexcom 1-68-29 avg 170 Interim History: 12/2021 Follow-up visit on 01/22/2022 for type 1 diabetes. A1c 8, bg 115, Currently on Levemir 26 twice a day, Humalog either 4-6, and he is on metformin also 500 twice a day. meter 35-251 avg 163 Interim History: 08/2021 Follow-up visit on 09/18/2021 for type 1 diabetes. A1c 8, bg 86, Currently on Levemir 26 twice a day, Humalog either 4-6, and he is on metformin also 500 twice a day. meter no readings Interim History: 05/2021 Follow-up visit on 06/19/2021 for type 1 diabetes. A1c 8.9, bg 173, Currently on Levemir 26 twice a day, Humalog either 2-4-6 or sometimes he try to do carb ratio 1:7, and he is on metformin also 500 twice a day. Interim History: 01/2021 Follow-up visit on 02/05/2021 for type 1 diabetes. Currently on Levemir 25 twice a day, Humalog either 2-4-6 or sometimes he try to do carb ratio 1:7, and he is on metformin also 500 twice a day. METER 63-263, AVG 147 Interim History: 09/2020 Follow-up visit on 10/15/2020 for type 1 diabetes. Currently on Levemir 25 twice a day, Humalog either 2-4-6 or sometimes he try to do carb ratio 1:7, and he is on metformin also 500 twice a day. Interim History: 06/2020 Follow-up visit on 07/04/2020 for type 1 diabetes. Currently on Levemir 25 twice a day, Humalog either 6/8/10 or sometimes he try to do carb ratio 1:7, and he is on metformin also 500 twice a day. meter 59-417, avg 207 Interim History: 03/2020 Follow-up visit on 04/10/20 for type 1 diabetes. Currently on Levemir 25 twice a day, Humalog either 6/8/10 or sometimes he try to do carb ratio 1:7, and he is on metformin also 500 twice a day. no meter today Interim History: 11/2019 Follow-up visit on 12/26/19 for type 1 diabetes. Currently on Levemir 23 twice a day, Humalog either 6/8/10 or sometimes he try to do carb ratio 1:7, and he is on metformin also 500 twice a day. meter lowest 36, highest 430, avg 201 Interim History: 07/2019 Follow-up visit on 08/17/19 for type 1 diabetes. Currently on Levemir 23 twice a day (exactly 12 hours apart try to do it), Humalog either 10/02/09 (and average 9 units breakfast, 5 units lunch, 9 units dinner) or sometimes he try to do carb ratio 1:7, and he is on metformin also 500 twice a day. Will send him new prescription. He say average blood sugar is 159. We saw him with telemedicine through [facility] today. Interim History 05/16 Followup visit on 05/18/2019 for type 1 diabetes. A1c in the office is 7.7. Log book lowest 57, highest 246. He is on Levemir 25 in the morning, 20 at bedtime, Humalog 6-8-10 plus scale #2 and metformin 500 twice a day. Lab done. Kidney function, BUN 16, creatinine 1.13, GFR above 60, total cholesterol 137, HDL 50, triglycerides 45, LDL 78. He is interested with diabetes class. Interim History 02/12: Followup visit 02/02/2019, for type 1 diabetes. His C-peptide is undetectable at 0.8, so we will claim him as a type 1. CGM interpretation 3%, in low range, 40 in good range, 57 in high range, average 196, standard deviation 67, blood sugar in office today 496. He is supposed to be on Levemir 35 now in the morning and Humalog 6-8-10 plus scale #2 plus metformin 500 twice a day. Lab done. Kidney function, BUN 16, creatinine 1.13, GFR above 60, total cholesterol 137, HDL 50, triglycerides 45, LDL 78. 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 He has diabetes since long time. His A1c was 13 running high, and last time in our office 8.8, blood sugar 63. He is on Levemir 25 twice a day and sliding scale Humalog barely used between 4 to 8 once or twice a day and his blood sugars running from 140 to 400 at home. He might have some eye issues, he is due for eye exam. No laser therapy so far. No heart disease. He has numbness and tingling. No ulcer of skin in feet. He has a small infection in his upper thigh and is on antibiotics for now. SUBJECTIVE: MEDICATIONS: Current Outpatient Medications Medication Instructions azelastine (Astelin) 0.1 % nasal spray 1 spray, Each Nostril, 2 times daily, Use in each nostril as directed Continuous Glucose Funnel Coater (Dexcom G7 Funnel Coater) device Does not apply Continuous Glucose Sensor (Dexcom G7 Sensor) misc Does not apply Glucagon (GVOKE HYPOPEN 1-PACK SC) Subcutaneous Glucagon (GVOKE HYPOPEN 2-PACK SC) Subcutaneous insulin glargine (Lantus) 100 UNIT/ML injection Subcutaneous, Nightly insulin glargine (Lantus) 100 UNIT/ML injection Subcutaneous, Nightly, 20 UNITS IN THE MORNING 16 UNITS IN THE EVENING insulin lispro protamine-insulin lispro (HumaLOG MIX 50/50 KWIKPEN) (50-50) 100 UNIT/ML injection Subcutaneous, 2 times daily with meals, SLIDING SCALE simvastatin (ZOCOR) 40 mg, Oral, Nightly ALLERGIES: No Known Allergies Past Medical History: Diagnosis Date Dietary counseling and surveillance 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) Mixed hyperlipidemia ([facility]) Overweight Type 1 diabetes mellitus with hyperglycemia (HCC) ([facility]) Type 2 diabetes mellitus with other diabetic neurological complication ([facility]/HCC) Vitamin D deficiency, unspecified Past Surgical History: Procedure Laterality Date COLONOSCOPY HEART CATH HERNIA REPAIR 1997 REVIEW OF SYMPTOMS: 14 POINT OF SYSTEM REVIEWED AND NEGATIVE OBJECTIVE: Constitutional: Afebrile @ home; no weakness or night sweats SKIN: No change in skin color; no itching, rash or lesions; no hair loss; HEENT: No HAs or injury; no dizziness; No difficulty with vision; no eye pain, discharge or lesions; no hearing loss or difficulty; no nasal discharge, NECK: No pain, limitation of motion, lumps or swollen glands RESP: No cough, wheezing or difficulty breathing. No CP with breathing; CARDIO: No CP , SOB or fatigue, No edema, palpitations or dyspnea with exertion GI: No N/V/D or abd. pain; good appetite with no recent change. No heart burn, liver or gallbladder disease; no rectal bleeding or pain : No urinary pain , frequency or odor. MUSCULOSKELETAL: No muscle pain or cramps; no extremity weakness.No joint pain, stiffness, swelling or limitation of movement NEUROLOGY: No H/O seizures, stroke or fainting. No weakness, tremors. Hematology: No bleeding problems or excessive bruising ENDOCRINE: No increase in hunger, thirst or urination; admits compliance to medical management plan Feet: numbness tingling , ulcers or skin break Lab Results Component Value Date HGBA1C 7.8 02/29/2024 Lab Results Component Value Date GLU 195 02/29/2024 Visit Vitals BP 124/64 Pulse 60 Resp 16 Ht 5' 11 Wt 193 lb BMI 26.92 kg/m BSA 2.09 m ASSESSMENT AND PLAN: Assessment/Plan Diagnoses and all orders for this visit: Type 1 diabetes mellitus with hyperglycemia (HCC) ([facility]) - POCT glucose manually resulted - POCT glycosylated hemoglobin (Hb A1C) docked device We will continue with Lantus 20 units in the morning, 16 at bedtime, Humalog insulin carb ratio 1:10 a.m., sliding scale 1, he is off metformin Insulin long-term use ([facility]) Encounter for dietary consultation Vitamin D deficiency Hyperlipemia, mixed ([facility]) Hypoglycemia Follow up in about 4 months (around 06/28/2024). 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 : Any questions regarding PATIENT CLASS/STATUS should be directed to the Care Management Departments: [facility] [phone] or [facility] [phone] or [facility] [phone]. [facility] 06-26-2023 Note Coronary artery dise ase is [...] increase his risk of worsening coronary atherosclerosis/blockage. [facility] 06-26-2023 Note Currently resolved [facility] 06-26-2023 Note Significant myalgias with crestor and now lipitor 20 mg. Resume simvastatin 40 mg daily- he has tolerated this in the past Will repeat lipid level in 2-3 months. [facility] 06-26-2023 Note PT has not been able to tolerate high intensity statin, he has tolerated zocor in the past. Pt stopped liptor 20 mg r/t myalgias of especially the hands, he had similar symptoms with crestor. Will repeat lipid in 2-3 months, and resume zocor 40 mg daily. [facility] 06-26-2023 Note Patient here for 1 y [...] All other systems reviewed and are negative. [facility] 06-26-2023 Note [facility]TP CARDIOLOGY PROGR ESS NOTE [...] 03/31/2022 136 Pota (more content not included)... [facility] 03-12-2022 Note CARDIAC STRESS TEST Requesting Physician: [...] to that report for further details. [facility] Evaluation note Diagnosis Onset Date Type 2 diabetes mellitus with hyperglycemia [facility] Work Phone: Evaluation note* Diagnosis Type 1 diabetes mellitus with hyperglycemia (HCC) ([facility])- Primary Insulin long-term use ([facility]) Encounter for long-term (current) use of insulin Encounter for dietary consultation Vitamin D deficiency Hyperlipemia, mixed (CMS/[facility]) Mixed hyperlipidemia Hypoglycemia Hypoglycemia, unspecified documented in this encounter [facility] HealthcareEvaluation note* Diagnosis Type 1 diabetes mellitus with hyperglycemia (HCC) ([facility])- Primary Insulin long-term use (CMS/[facility]) Encounter for long-term (current) use of insulin Encounter for dietary consultation Vitamin D deficiency Hyperlipemia, mixed ([facility]) Mixed hyperlipidemia Hypoglycemia Hypoglycemia, unspecified documented in this encounter [facility] Healthcare Summary Purpose Family History No Family History Records FoundNo Family History Records FoundNo Family History Records FoundNo Family History Records FoundNo Family History Records FoundNo Family History Records Found Advance Directives No Advanced Directives Records Found Advance Directive Response Recorded Date/ Time Advance Directives No August 18, 018 11:58am Assessments No Assessments Information Available Chief Complaint and Reason for Visit Chief Complaint CGM- new patient - S abbagh Reason for Visit Type 2 diabetes andre itus with hyperglycemia Chief Complaint CGM- new patient - S abbagh DM - initial Reason for Visit Type 2 diabetes andre itus with hyperglycemia Chief Complaint CGM- new patient - S abbagh DM - initial DM - follow up Reason for Visit Type 2 diabetes andre itus with hyperglycemia Additional Source Comments (unrecognized sect ion and content) No Status Records FoundNo Status Records FoundNo Status Records FoundNo Status Records FoundNo Status Records FoundNo Status Records Found INFORMATION SOURCE (unrecogn ized section and content) DATE CREATED AUTHOR 10/15/2017 [facility] DATE CREATED AUTHOR AUTHOR'S ORGANIZ ATION 12/27/2019 [facility] DATE CREATED AUTHOR AUTHOR'S ORGANIZ ATION 07/05/2022 [facility] DATE CREATED AUTHOR AUTHOR'S ORGANIZ ATION 08/08/2023 [facility] DATE CREATED AUTHOR AUTHOR'S ORGANIZ ATION 10/12/2023 [facility] DATE CREATED AUTHOR AUTHOR'S ORGANIZ ATION 06/28/2024 [facility] [employer] Care Teams (unrecognized sec tion and content) Team Status: Active Member Role Status Dates Cinthya Morelos MD Primary Care Provider Active Team Status: Inactive Member Role Status Dates Cinthya Morelos MD Primary Care Provider Active Start: November 16, 2023 End: November 16, 2023 Judie Hurd MD Active Start: 2023 End: November 16, 2023 Emily Solano RN Attending Provider Active Start: November 16, 2023 End: November 16, 2023 Team Status: Inactive Member Role Status Dates Cinthya Morelos MD Primary Care Provider Active Start: December 16, 2023 End: December 16, 2023 CARLO Crowley Attending Provider Active Start: December 16, 2023 End: December 16, 2023 Team Status: Inactive Member Role Status Dates Cinthya Morelos MD Primary Care Provider Active Start: February 09, 2024 End: February 09, 2024 CARLO Crowley Attending Provider Active Start: February 09, 2024 End: February 09, 2024 Goals (unrecognized section and content) Goals may be documented in a n alternate sectionGoals may be documented in an alternate sectionGoals may be documented in an alternate section Reason for Visit (unrecogniz ed section and content) Reason Comments Diabetes Follow-up Reason Comments Diabetes FOR RECORDS PERTAINING TO PATIENTS WHO ARE [...] BE BASED ON THE PRIMARY CLINICAL RECORDS. [facility]. provides no warranty or guarantee of the accuracy or completeness of information in this document.
[2024-07-05 07:58] LABS: Basophils Absolute Auto 0.1 10^3/uL (0.0-0.1); Basophils Percent Auto 1.9 % (0.2-2.0); Eosinophils Absolute Auto 0.3 10^3/uL (0.0-0.7); Eosinophils Percent Auto 6.7 % (0.9-7.0); Hematocrit 41.8 % (42.0-54.0); Hemoglobin 14.2 g/dL (14.0-18.0); Lymphocytes Absolute Auto 1.4 10^3/uL (1.2-3.8); Lymphocytes Percent Auto 32.3 % (20.5-60.0); Mean Corpuscular Hemoglobin 31.7 pg (25.9-34.0); Mean Corpuscular Volume 93.3 fL (80.0-94.0); Mean Platelet Volume 9.7 fL (9.5-13.5); Monocytes Absolute Auto 0.4 10^3/uL (0.3-0.8); Monocytes Percent Auto 10.2 % (1.7-12.0); Neutrophils Absolute Auto 2.1 10^3/uL (1.4-6.5); Neutrophils Percent Auto 48.9 % (43.0-75.0); Platelet Count 247 10^3/uL (150-450); Red Blood Count 4.48 10^6/uL (4.70-6.10); Red Cell Distribution Width 12.4 % (11.0-15.0); White Blood Count 4.2 10^3/uL (4.0-11.0)
[2024-07-05 09:26] LABS: Prostate Specific Antigen Scrn 1.68 ng/mL (<=4.00)
[2024-07-05 09:29] LABS: Alanine Aminotransferase 35 U/L (16-63); Albumin Globulin Ratio 1.1; Albumin Level 3.7 g/dL (3.4-5.0); Alkaline Phosphatase 54 U/L (46-116); Anion Gap 10.6; Aspartate Amino Transferase 33 U/L (15-37); BUN Creatinine Ratio 11.5; Bilirubin Total 0.3 mg/dL (0.2-1.0); Carbon Dioxide 27.5 mmol/L (21.0-32.0); Chloride 103 mmol/L (98-107); Chol HDL Ratio 3.3; Cholesterol 131 mg/dL (<=200); Estimated GFR (African America >60 (>=60 mL/min/1.73m^2); Estimated GFR (Non-African Ame 55 (>=60 mL/min/1.73m^2); Globulin 3.5 g/dL; Glucose 255 mg/dL (74-106); HDL Cholesterol 40 mg/dL (40-60); Potassium 4.1 mmol/L (3.5-5.1); Sodium 137 mmol/L (136-145); Thyroid Stimulating Hormone 1.076 uIU/mL (0.358-3.740); Total Protein 7.2 g/dL (6.4-8.2); Triglycerides 216 mg/dL (<=150); VLDL CHOLESTEROL 43.2 mg/dL
== END 2024-07-05 07:32 | disposition home or self-care (01) ==
LOC: LAB 07:33
PROVIDERS: PCP Family Medicine; Visit Provider Internal Medicine Interventional Cardiology
DX: I25.10 Atherosclerotic heart disease of native coronary artery without angina pectoris (principal); E78.2 Mixed hyperlipidemia; Z12.5 Encounter for screening for malignant neoplasm of prostate
CPT/HCPCS: 36415; 80053; 80061; 84443; 85025; G0103

== ENCOUNTER 2024-09-26 07:43 | Outpatient (OUT) | payer MEDICARE, OTHER, SELFPAY ==
--- OUTSIDE RECORDS SUMMARY | 2024-09-26 08:05 | XMS_ITS | CCD ---
Author Organization [facility] Care Team Providers [employer] Representative Name Role Phone PHYSICIAN, DEFAULT Unavailable Unavailable PHYSICIAN, DEFAULT Unavailable Unavailable LORY MORELOSLAS Unavailable Unavailable CELIO, QUINN Admitting Unavailable CELIO, QUINN Attending Unavailable HOY ., DR MENDES Primary Care Unavailable CELIO, QUNIN Consulting Unavailable CELIO, QUINN Admitting Unavailable CELIO, QUINN Attending Unavailable HOY ., DR MENDES Primary Care Unavailable CELIO, QUINN Consulting Unavailable CELIO, QUINN Admitting Unavailable CELIO, QUINN Attending Unavailable HOY ., DR MENDES Primary Care Unavailable CARVER, DR JOSEPH Moyer Consulting Unavailable CELIO, QUINN [...] DR MENDES Primary Care Unavailable MOUKARBEL, DR TOLBETR Consulting Unavailable ELBA SUTTON Attending Unavailable Unavailable Primary Care Provider UnavailJUDIE Piña Attending Unavailable JUDIE HURD Attending Unavailable JUDIE HURD Referring Unavailable MOUKARBDIDI QUINTEROS Attending Unavailable Unavailable Unavailable Unavailable Allergies Allergy Classification Reported Allergen(s) Allergy Type Date of Onset Reaction(s) Facility (2 sources) Sulfonamides (Antibiotic) Drug allergy (disorder) 03-23-2013 [facility] (1 source) atorvastatin; Translations: [ATORVASTATIN] Drug Allergy 06-26-2023 [facility] (1 source) rosuvastatin; Translations: [ROSUVASTATIN] Drug Allergy 06-26-2023 [facility] Medications Current Medications Medication Drug Class(es) Dates Sig (Normalized) Sig (Original) azelastine hydrochloride 0.137 mg/actuat metered dose nasal spray (5 sources) Histamine-1 Receptor Antagonist take 1 spray(s) nasal route in the morning azelastine (Astelin) 0.1 % nasal spray Administer 1 spray into each nostril in the morning and 1 spray before bedtime. Use in each nostril as directed. Active Continuous Glucose Angle Dozer Operator (Dexcom G7 Angle Dozer Operator) device (3 sources) Continuous Glucose Angle Dozer Operator (Dexcom G7 Angle Dozer Operator) device Active Continuous Glucose Sensor (Dexcom G7 [...] Active Problems Problem Classification Problem Date Documented Date Episodic/Chronic Administrative/social admission (4 sources) Patient encounter status; Translations: [Dietary counseling and surveillance] 02-29-2024 Episodic Cardiac dysrhythmias (2 sources) Ventricular premature depolarization; Translations: [Ventricular premature depolarization] Onset: 5 Chronic Coronary atherosclerosis and other heart disease (6 sources) Other forms of angina pectoris; Translations: [Atherosclerotic heart disease of [place] coronary artery without angina pectoris] Onset: 2 Chronic Diabetes mellitus with complications (10 sources) Hyperglycemia due to type 2 diabetes mellitus; Translations: [Type 2 diabetes mellitus with hyperglycemia] 11-16-2023 Chronic Disorders of lipid metabolism (10 sources) Mixed hyperlipidemia; Translations: [Mixed hyperlipidemia] Onset: 2 Chronic Essential hypertension (2 sources) Essential (primary) hypertension; Translations: [Essential (primary) hypertension] Onset: 5 Chronic Nutritional deficiencies (4 sources) Vitamin D deficiency; Translations: [Vitamin D deficiency, unspecified] 02-29-2024 Chronic Other aftercare (4 sources) Long-term current use of insulin; Translations: [moth exterminator (current) use of insulin] 02-29-2024 Episodic Other endocrine disorders (4 sources) Hypoglycemia; Translations: [Hypoglycemia, unspecified] 02-29-2024 Chronic Other screening for suspected conditions (not mental disorders or infectious disease) (6 sources) Abnormal result of other cardiovascular function study; Translations: [Abnormal electrocardiogram [ECG] [EKG]] Onset: 2 Episodic Unclassified (3 sources) CONTACT W/AND (SUSP) EXPOS COVID-19; Translations: [CONTACT W/AND (SUSP) EXPOS COVID-19] Onset: 2 Unclassified (2 sources) Hypoglycemia, unspecified; Translations: [Hypoglycemia, unspecified] Onset: 4 Past or Other Problems Problem Classification Problem Date Documented Da te Episodic/Chronic Other lower respiratory disease (4 sources) Other forms of dyspnea; Translations: [OTHER FORMS OF DYSPNEA] Onset: 03-12-2022 Episodic Other lower respiratory disease (4 sources) Dyspnea, unspecified; Translations: [DYSPNEA UNSPECIFIED] Onset: 03-05-2022 Episodic Unclassified (1 source) CONTACT W/AND (SUSP) EXPOS COVID-19; Translations: [CONTACT W/AND (SUSP) EXPOS COVID-19] Onset: 07-15-2021 Results Test Name Value Interpretation Reference Range Facility Office Visiton 07-11-2024 Follow-up visit [id number] Brody West 1955 M Date Provider Department Center 07/11/2024 DIDI RODRIGUEZ HARJINDER [facility] Family History Problem Relation Age of Onset ALS Mother Coronary artery disease Father Other Father Coronary artery disease Brother Other Brother Family Status - Relation Status Age at Mother Father Brother Level of Service:35807 [place] OFFICE/OUTPATIENT ESTABLISHED LOW MDM 20 MIN Normal [facility] Glucose (Bld) [Mass/Vol]on 0 06-27-2024 Glucose Blood, POC 135 mg/dL [facility] Interpretation and review of laboratory results Normal [facility] HbA1c (Bld) [Mass fraction]o n 06-27-2024 Interpretation and review of laboratory results Abnormal [facility] Laboratory - Hematology and Cell countson 06-27-2024 HbA1c (Bld) [Mass fraction] 7.6 % [facility] No Panel Informationon 06-27 [facility] Glucose (Bld) [Mass/Vol]Orde red By: Lanie Steen on 02-29-2024 Glucose Blood, POC 195 mg/dL [facility] - Hematology and Cell countson 02-29-2024 HbA1c (Bld) [Mass fraction] 7.8 % [facility] No Panel InformationOrdered By: Lanie Steen on 02-29-2024 [facility] 36on 10-09-2023 36 Patient made aware. Normal [facility] 36on 10-07-2023 36 Patient was unable [...] he even need Leqvio? Please advise. Thanks! [facility] Orders Onlyon 10-07-2023 Orders Only [id number] Brody West 1955 M Date Provider Department Center 10/07/2023 HENRY FRIAS Zhao Sanchez Family History Problem Relation Age of Onset ALS Mother Coronary artery disease Father Other Father Coronary artery disease Brother Other Brother Family Status - Relation Status Age at Mother Father Brother [facility] 36on 08-28-[address] Garcia, restart patient on simvastatin 40mg daily and see if he qualifies for Repatha with his insurance. RX's sent to [facility]. Patient made aware. [facility] BEDSIDE GLUCOSEon 08-02-2023 Glucose [Mass/Vol] 266 mg/dL High 70-[address] [facility] Comment on above: Performed By: #### N PGLU #### Scarlett Reynolds ([id number]) [facility] [address] [place] [address] Glucose [Mass/Vol] 143 mg/dL High 70-[address] [facility] Comment on above: Performed By: #### N PGLU #### Scarlett Reynolds ([id number]) [facility] [id number] [place] [id number] ED PROV NOTEon 08-02-2023 ED PROV NOTE Adviser Sales Authentication Interface Message Text [facility] EMERGENCY DEPARTMENT ED Encounter Arrival Date: 08/02/23405 Brody West : 1955 No address on file. [facility]: [id number] DAVID: [id number] EMERGENCY DEPARTMENT - GENERAL NOTE CHIEF COMPLAINT Chief Complaint Patient presents with Hypoglycemia HPI Brody West is a 68 year old male who presents hypoglycemic reaction. Patient was acting weird when he woke up his , checked his sugar it was 44. Called EMS. Patient was given orange juice, blood sugar went back up, signed refusal. Shortly thereafter was having a [employer] jelly sandwich and then his blood sugar [...] now REVIEW OF SYSTEMS As per the [facility] PAST MEDICAL HISTORY No past medical history [...] for det (more content not included)... Normal [facility] LIPID PROFILEon 07-01-2022 CHOL-HDL RATIO NORM SEE BELOW Normal [facility] Comment on above: Result Comment: 3.3 - 4.4 LOW RISK 4.4 - 7.1 AVERAGE RISK 7.1 - 11.0 MODERATE RISK >11.0 HIGH RISK Performed By: #### L IPID #### [facility] [address] [place], [place] [address] Dr. Julio Leon Cholesterol [Mass/Vol] 109 mg/dL Normal <=200 Th [facility] Comment on above: Performed By: #### L IPID #### [facility] [address] [place], [place] [address] Dr. Julio Leon Cholesterol in HDL [Mass/Vol] 48 mg/dL Normal 40-60 [facility] Comment on above: Performed By: #### L IPID #### [facility] [address] [place] [address] Dr. Julio Leon Cholesterol in LDL [Mass/Vol] 49.6 mg/dL Normal [facility] Comment on above: Performed By: #### L IPID #### [facility] [address] [place] [address] [address] Julio Leon Cholesterol.total/Nory sterol in HDL [Mass ratio] 2.3 {ratio} Normal [facility] Comment on above: Performed By: #### L IPID #### [facility] [address] [place] [address] Dr. Julio Leon HDL NORMAL > or = 60 mg/dl - LOW CARDIOVASCULAR RISK <40 mg/dl - HIGH CARDIOVASCULAR RISK Normal [facility] Comment on above: Performed By: #### L IPID #### [facility] [address] [place] [address] Dr. Julio Leon LDL CALC NORMAL SEE BELOW Normal [facility] Comment on above: Result Comment: <100 mg/dl OPTIMAL 100 - 129 mg/dl NEAR OR ABOVE OPTIMAL 130 - 159 mg/dl BORDERLINE HIGH 160 - 189 mg/dl HIGH >190 mg/dl VERY HIGH Performed By: #### L IPID #### [facility] [address] [place] [address] Dr. Julio Leon Triglyceride [Mass/Vol] 57 mg/dL Normal <=150 [facility] Comment on above: Performed By: #### L IPID #### [facility] [address] [place] [address] Dr. Julio Leon VLDL CALC 11.4 mg/dL Normal [facility] Comment on above: Performed By: #### L IPID #### [facility] [address] [place] [address] Dr. Julio Leon CBC AUTO DIFFon 03-31-2022 BASO # 0.1 103/ul Normal 0.0-0.1 [facility] Comment on above: Performed By: #### C BC #### [facility] [address] [place] [address] Dr. Julio Leon Basophils/100 WBC (Bld) 1.4 % Normal 0.2-2.0 [facility] Comment on above: Performed By: #### C BC #### [facility] [address] [place] [address] Dr. Julio Leon EO # 0.1 103/ul Normal 0.0-0.7 [facility] Comment on above: Performed By: #### C BC #### [facility] [address] [place] [address] Dr. Julio Leon Eosinophils/100 WBC (Bld) 2.0 % Normal 0.9-7.0 [facility] Comment on above: Performed By: #### C BC #### [facility] [address] [place] [address] Dr. Julio Leon Erythrocyte distribution width (RBC) [Ratio] 12.5 % Normal 11.0-15.0 [facility] Comment on above: Performed By: #### C BC #### [facility] [address] [place] [address] Dr. Julio Leon Hematocrit (Bld) [Volume fraction] 43.0 % Normal 42.0-54.0 [facility] Comment on above: Performed By: #### C BC #### [facility] [address] [place] [address] Dr. Julio Leon Hemoglobin (Bld) [Mass/Vol] 14.1 g/dL Normal 14.0-18.0 [facility] Comment on above: Performed By: #### C BC #### [facility] [address] [place] [address] Dr. Julio Leon IG # 0.01 10e3/ul Normal 0.00-0.03 [facility] Comment on above: Performed By: #### C BC #### [facility] [address] [place] [address] Dr. Julio Leon IG % 0.2 % Normal 0.0-0.5 [facility] Comment on above: Performed By: #### C BC #### [facility] [address] [place] [address] Dr. Julio Leon LYMPH # 1.4 103/ul Normal 1.2-3.8 [facility] Comment on above: Performed By: #### C BC #### [facility] [address] [place] [address] Dr. Julio Leon Lymphocytes/100 WBC (Bld) 28.1 % Normal 20.5-60.0 [facility] Comment on above: Performed By: #### C BC #### [facility] [address] [place] [address] Dr. Julio Leon MANUAL DIFF REQ NO Normal [facility] Comment on above: Performed By: #### C BC #### [facility] [address] [place] [address] Dr. Julio Leon MCH (RBC) [Entitic mass] 30.1 pg Normal 25.9-34.0 [facility] Comment on above: Performed By: #### C BC #### [facility] [address] [place] [address] Dr. Julio Leon MCHC (RBC) [Mass/Vol] 32.8 g/dL Normal 29.9-35.2 [facility] Comment on above: Performed By: #### C BC #### [facility] [address] [place] [address] Dr. Julio Leon MCV (RBC) [Entitic vol] 91.9 fL Normal 80.0-94.0 [facility] Comment on above: Performed By: #### C BC #### [facility] [address] [place] [address] Dr. Julio Leon MONO # 0.5 103/ul Normal 0.3-0.8 [facility] Comment on above: Performed By: #### C BC #### [facility] [address] [place] [address] Dr. Julio Leon Monocytes/100 WBC (Bld) 9.8 % Normal 1.7-12.0 [facility] Comment on above: Performed By: #### C BC #### [facility] [address] [place] [address] Dr. Julio Leon NEUT # 3.0 103/ul Normal 1.4-6.5 [facility] Comment on above: Performed By: #### C BC #### [facility] [address] [place] [address] Dr. Julio Leon Neutrophils/100 WBC (Bld) 58.5 % Normal 43.0-75.0 [facility] Comment on above: Performed By: #### C BC #### [facility] [address] [place] [address] Dr. Julio Leon Platelet mean volume (Bld) [Entitic vol] 9.6 fL Normal 9.5-13.5 [facility] Comment on above: Performed By: #### C BC #### [facility] [address] [place] [address] Dr. Julio Leon PLT 267 103/ul Normal 150-450 [facility] Comment on above: Performed By: #### C BC #### [facility] [address] [place] [address] Dr. Julio Leon RBC 4.68 106/ul Critically low 4.70-6.10 [facility] Comment on above: Performed By: #### C BC #### [facility] [address] [place] [address] Dr. Julio Leon WBC 5.1 103/ul Normal 4.0-11.0 [facility] Comment on above: Performed By: #### C BC #### [facility] [address] [place] [address] Dr. Julio Leon PROF CHEM 8 (BAS METB)on Anion gap [Moles/Vol] 11.6 mmol/L Normal [facility] Comment on above: Performed By: #### B MP #### [facility] [address] [place] [address] Dr. Julio Leon Calcium [Mass/Vol] 9.3 mg/dL Normal 8.5-10.1 [facility] Comment on above: Performed By: #### B MP #### [facility] [address] [place] [address] Dr. Julio Leon Chloride [Moles/Vol] 101 mmol/L Normal 98-107 [facility] Comment on above: Performed By: #### B MP #### [facility] [address] [place] [address] [address] Julio Leon CO2 [Moles/Vol] 27.8 mmol/L Normal 21.0-32.0 [facility] Comment on above: Performed By: #### B MP #### [facility] [address] [place] [address] [address] Julio Leon Creatinine [Mass/Vol] 0.95 mg/dL Normal 0.70-1.30 [facility] Comment on above: Performed By: #### B MP #### [facility] [address] [place] [address] [address] Julio Leon EGFR-AF GAMBIAN >60 Normal >=60 [facility] Comment on above: Performed By: #### B MP #### [facility] [address] [place] [address] [address] Julio Leon EGFR-NON AF GAMBIAN >60 Normal >=60 [facility] Comment on above: Performed By: #### B MP #### [facility] [address] [place] [address] [address] Julio Leon Glucose [Mass/Vol] 80 mg/dL Normal 74-106 [facility] Comment on above: Performed By: #### B MP #### [facility] [address] [place] [address] [address] Julio Leon Potassium [Moles/Vol] 4.4 mmol/L Normal 3.5-5.1 [facility] Comment on above: Performed By: #### B MP #### [facility] [address] [place] [address] [address] Julio Leon Sodium [Moles/Vol] 136 mmol/L Normal 136-145 [facility] Comment on above: Performed By: #### B MP #### [facility] [address] [place] [address] [address] Julio Leon Urea nitrogen [Mass/Vol] 14.0 mg/dL Normal 7.0-18.0 [facility] Comment on above: Performed By: #### B MP #### [facility] [address] [place], [place] [address] Dr. Julio Leon Urea nitrogen/Creatinine [Mass ratio] 14.7 mg/mg Normal [facility] Comment on above: Performed By: #### B MP #### [facility] [address] [place], [place] [address] Dr. Julio Leon NM STRESS/REST MULTIon 03-12 NM STRESS/REST MULTI Patient: BRODY WEST Exam Date: 03/12/2022 : 1955 Gender:M Ordering : QUINN Nomi CELIO Admission #: [id number] Family : DR CINTHYA MORELOS . Order #: [id number] CLICK HERE TO VIEW EXAM RADIOLOGY REPORT [...] Cramer MD on 03/12/2022 at 14:20 Normal [facility] ECHOCARDIO M/2D COMPLETEon 1 05-05-2021 ECHOCARDIO M/2D COMPLETE Patient: BRODY WEST Exam Date: 03/05/2022 : 1955 Gender:M Ordering : QUINN PICKENS Admission #: [id number] Family : CINTHYA MORELOS . Order #: [id number] CLICK HERE TO VIEW EXAM ECHOCARDIOGRAM REPORT [...] Garcia M.D. on 03/05/2022 at 18:14 Normal [facility] CBC AUTO DIFFon 02-21-2022 BASO # 0.1 103/ul Normal 0.0-0.1 [facility] Comment on above: Performed By: #### C BC #### [facility] [address] [place] [address] Dr. Julio Leon Basophils/100 WBC (Bld) 1.2 % Normal 0.2-2.0 [facility] Comment on above: Performed By: #### C BC #### [facility] [address] [place] [address] Dr. Julio Leon EO # 0.1 103/ul Normal 0.0-0.7 [facility] Comment on above: Performed By: #### C BC #### [facility] [address] [place] [address] Dr. Julio Leon Eosinophils/100 WBC (Bld) 3.2 % Normal 0.9-7.0 [facility] Comment on above: Performed By: #### C BC #### [facility] [address] [place] [address] Dr. Julio Leon Erythrocyte distribution width (RBC) [Ratio] 12.7 % Normal 11.0-15.0 [facility] Comment on above: Performed By: #### C BC #### [facility] [address] [place] [address] Dr. Julio Leon Hematocrit (Bld) [Volume fraction] 39.3 % Critically low 42.0-54.0 [facility] Comment on above: Performed By: #### C BC #### [facility] [address] [place] [address] Dr. Julio Leon Hemoglobin (Bld) [Mass/Vol] 13.1 g/dL Critically low 14.0-18.0 [facility] Comment on above: Performed By: #### C BC #### [facility] [address] [place] [address] Dr. Julio Leon IG # 0.01 10e3/ul Normal 0.00-0.03 [facility] Comment on above: Performed By: #### C BC #### [facility] [address] [place] [address] Dr. Julio Leon IG % 0.2 % Normal 0.0-0.5 [facility] Comment on above: Performed By: #### C BC #### [facility] [address] [place] [address] Dr. Julio Leon LYMPH # 1.3 103/ul Normal 1.2-3.8 [facility] Comment on above: Performed By: #### C BC #### [facility] [address] [place] [address] Dr. Julio Leon Lymphocytes/100 WBC (Bld) 32.4 % Normal 20.5-60.0 [facility] Comment on above: Performed By: #### C BC #### [facility] [address] [place] [address] Dr. Julio Leon MANUAL DIFF REQ NO Normal [facility] Comment on above: Performed By: #### C BC #### [facility] [address] [place] [address] Dr. Julio Leon MCH (RBC) [Entitic mass] 30.8 pg Normal 25.9-34.0 [facility] Comment on above: Performed By: #### C BC #### [facility] [address] [place] [address] Dr. Julio Leon MCHC (RBC) [Mass/Vol] 33.3 g/dL Normal 29.9-35.2 [facility] Comment on above: Performed By: #### C BC #### [facility] [address] [place] [address] Dr. Julio Leon MCV (RBC) [Entitic vol] 92.3 fL Normal 80.0-94.0 [facility] Comment on above: Performed By: #### C BC #### [facility] [address] [place] [address] Dr. Julio Leon MONO # 0.5 103/ul Normal 0.3-0.8 [facility] Comment on above: Performed By: #### C BC #### [facility] [address] [place] [address] Dr. Julio Leon Monocytes/100 WBC (Bld) 11.2 % Normal 1.7-12.0 [facility] Comment on above: Performed By: #### C BC #### [facility] [address] [place] [address] Dr. Julio Leon NEUT # 2.1 103/ul Normal 1.4-6.5 [facility] Comment on above: Performed By: #### C BC #### [facility] [address] [place] [address] Dr. Julio Leon Neutrophils/100 WBC (Bld) 51.8 % Normal 43.0-75.0 [facility] Comment on above: Performed By: #### C BC #### [facility] [address] [place] [address] Dr. Julio Leon Platelet mean volume (Bld) [Entitic vol] 10.0 fL Normal 9.5-13.5 [facility] Comment on above: Performed By: #### C BC #### [facility] [address] [place] [address] [address] Julio Leon PLT 232 103/ul Normal 150-450 [facility] Comment on above: Performed By: #### C BC #### [facility] [address] [place] [address] [address] Julio Leon RBC 4.26 106/ul Critically low 4.70-6.10 [facility] Comment on above: Performed By: #### C BC #### [facility] [address] [place] [address] [address] Julio Leon WBC 4.0 103/ul Normal 4.0-11.0 [facility] Comment on above: Performed By: #### C BC #### [facility] [address] [place] [address] Dr. Julio Leon LIPID PROFILEon 02-21-2022 CHOL-HDL RATIO NORM SEE BELOW Normal [facility] Comment on above: Result Comment: 3.3 - 4.4 LOW RISK 4.4 - 7.1 AVERAGE RISK 7.1 - 11.0 MODERATE RISK >11.0 HIGH RISK Performed By: #### L IPID, TSH, CMP #### [facility] [address] [place] [address] Dr. Julio eLon Cholesterol [Mass/Vol] 132 mg/dL Normal <=200 Th [facility] Comment on above: Performed By: #### L IPID, TSH, CMP #### [facility] [address] [place] [address] Dr. Julio Leon Cholesterol in HDL [Mass/Vol] 46 mg/dL Normal 40-60 [facility] Comment on above: Performed By: #### L IPID, TSH, CMP #### [facility] [address] [place] [address] Dr. Julio Leon Cholesterol in LDL [Mass/Vol] 71.4 mg/dL Normal [facility] Comment on above: Performed By: #### L IPID, TSH, CMP #### [facility] [address] [place] [address] [address] Julio Leon Cholesterol.total/Nory sterol in HDL [Mass ratio] 2.9 {ratio} Normal [facility] Comment on above: Performed By: #### L IPID, TSH, CMP #### [facility] [address] [place] [address] [address] Julio Leon HDL NORMAL > or = 60 mg/dl - LOW CARDIOVASCULAR RISK <40 mg/dl - HIGH CARDIOVASCULAR RISK Normal [facility] Comment on above: Performed By: #### L IPID, TSH, CMP #### [facility] [address] [place] [address] Dr. Julio Leon LDL CALC NORMAL SEE BELOW Normal [facility] Comment on above: Result Comment: <100 mg/dl OPTIMAL 100 - 129 mg/dl NEAR OR ABOVE OPTIMAL 130 - 159 mg/dl BORDERLINE HIGH 160 - 189 mg/dl HIGH >190 mg/dl VERY HIGH Performed By: #### L IPID, TSH, CMP #### [facility] [address] [place] [address] Dr. Julio Leon Triglyceride [Mass/Vol] 73 mg/dL Normal <=150 [facility] Comment on above: Performed By: #### L IPID, TSH, CMP #### [facility] [address] [place] [address] Dr. Julio Leon VLDL CALC 14.6 mg/dL Normal [facility] Comment on above: Performed By: #### L IPID, TSH, CMP #### [facility] [address] [place] [address] Dr. Julio Leon PROF 14(COMP METB)on 022 Albumin [Mass/Vol] 3.7 g/dL Normal 3.4-5.0 [facility] Comment on above: Performed By: #### L IPID, TSH, CMP #### [facility] [address] [place] [address] Dr. Julio Leon Albumin/Globulin [Mass ratio] 1.1 {ratio} Normal [facility] Comment on above: Performed By: #### L IPID, TSH, CMP #### [facility] [address] [address] [address] Julio Leon ALP [Catalytic activity/Vol] 53 U/L Normal 46-116 [facility] Comment on above: Performed By: #### L IPID, TSH, CMP #### [facility] [address] [address] [address] Julio Leon ALT [Catalytic activity/Vol] 21 U/L Normal 16-63 [facility] Comment on above: Performed By: #### L IPID, TSH, CMP #### [facility] [address] [address] [address] Julio Leon Anion gap [Moles/Vol] 8.8 mmol/L Normal [facility] Comment on above: Performed By: #### L IPID, TSH, CMP #### [facility] [address] [place] [address] Dr. Julio Leon AST [Catalytic activity/Vol] 15 U/L Normal 15-37 [facility] Comment on above: Performed By: #### L IPID, TSH, CMP #### [facility] [address] [address] [address] Julio Leon Bilirubin [Mass/Vol] 0.5 mg/dL Normal 0.2-1.0 [facility] Comment on above: Performed By: #### L IPID, TSH, CMP #### [facility] [address] [place] [address] Dr. Julio Leon Calcium [Mass/Vol] 8.6 mg/dL Normal 8.5-10.1 [facility] Comment on above: Performed By: #### L IPID, TSH, CMP #### [facility] [address] [address] [address] Julio Leon Chloride [Moles/Vol] 104 mmol/L Normal 98-107 [facility] Comment on above: Performed By: #### L IPID, TSH, CMP #### [facility] [address] [place] [address] Dr. Julio Leon CO2 [Moles/Vol] 31.3 mmol/L Normal 21.0-32.0 [facility] Comment on above: Performed By: #### L IPID, TSH, CMP #### [facility] [address] [address] [address] Julio Leon Creatinine [Mass/Vol] 1.03 mg/dL Normal 0.70-1.30 [facility] Comment on above: Performed By: #### L IPID, TSH, CMP #### [facility] [address] [address] [address] Julio Leon EGFR-AF GAMBIAN >60 Normal >=60 [facility] Comment on above: Performed By: #### L IPID, TSH, CMP #### [facility] [address] [address] [address] Julio Leon EGFR-NON AF GAMBIAN >60 Normal >=60 [facility] Comment on above: Performed By: #### L IPID, TSH, CMP #### [facility] [address] [address] [address] Julio Leno Globulin (S) [Mass/Vol] 3.5 g/dL Normal [facility] Comment on above: Performed By: #### L IPID, TSH, CMP #### [facility] [address] [address] [address] Julio Leon Glucose [Mass/Vol] 78 mg/dL Normal 74-106 [facility] Comment on above: Performed By: #### L IPID, TSH, CMP #### [facility] [address] [address] [address] Julio Leon Potassium [Moles/Vol] 4.1 mmol/L Normal 3.5-5.1 [facility] Comment on above: Performed By: #### L IPID, TSH, CMP #### [facility] [address] [address] [address] Julio Leon Protein [Mass/Vol] 7.2 g/dL Normal 6.4-8.2 [facility] Comment on above: Performed By: #### L IPID, TSH, CMP #### [facility] [address] [address] [address] Julio Leon Sodium [Moles/Vol] 140 mmol/L Normal 136-145 [facility] Comment on above: Performed By: #### L IPID, TSH, CMP #### [facility] [address] [place], [place] [address] Dr. Julio Leon Urea nitrogen [Mass/Vol] 12.0 mg/dL Normal 7.0-18.0 [facility] Comment on above: Performed By: #### L IPID, TSH, CMP #### [facility] [address] [place], [place] [address] Dr. Julio Leon Urea nitrogen/Creatinine [Mass ratio] 11.7 mg/mg Normal [facility] Comment on above: Performed By: #### L IPID, TSH, CMP #### [facility] [address] [place], [place] [address] Dr. Julio Leon TSHon 02-21-2022 TSH 1.278 uIU/mL Normal 0.358-3.740 [facility] Comment on above: Performed By: #### L IPID, TSH, CMP ####[facility] [address] [place], [place] [address]BlDr. Julio Leon [facility]on 06-26 SARS-CoV-2 (COVID-19) RNA OLIMPIA+probe Ql (Unsp spec) Not detected Normal NOT DETECTED [facility] Comment on above: Result Comment: When diagnostic testing is negative, the possibility of a false negative should be considered in the context of a patient's recent exposures and the presence of clinical signs and symptoms consistent with SARS-CoV-2. This test is not yet approved or cleared by the [place] Food and Drug Administration (FDA). This test was developed by [employer], [place], [place]. The performance characteristics of this test were validated by [facility]. The results are not intended to be used as the sole means for clinical diagnosis or patient management decisions. [facility] is authorized under Clinical Laboratory Improvement [...] for this test is supported by the [place] of Health and Human Service's declaration that [...] longer be used). Performed By: #### C PENDING SALE TO [facility] ####[facility] [address] [place], [place] [address]Ok. Julio Leon Outside Colonoscopyon 2019 Outside Colonoscopy [id number] #1.00CD:[address] [facility] Lab Reportson 11-07-2019 Lab Reports [id number] #1.00CD:127 [facility] 11-03-2019 Consent [id number] #1.00CD:127 [facility] Ambulatory Clinical Summaryo n 10-26-2019 Ambulatory Clinical Summary {[id number]}CD:[id number] [facility] Physician Referralon 020 Physician Referral [id number] #1.00CD:127 [facility] Vital Signs Date Time Vital Sign Value Performing Clinician Faci lity 06-27-2024 13:20-0500 Body height 180.3 cm Judie Hurd MD Work Phone: [facility] 06-27-2024 13:20-0500 Body mass index (BMI) [Ratio] 27.34 kg/m2 Judie Hurd MD Work Phone: [facility] 06-27-2024 13:20-0500 Body weight 88.91 kg Judie Hurd MD Work Phone: [facility] 06-27-2024 13:20-0500 Diastolic blood pressure 70 mm[Hg] Judie Hurd MD Work Phone: [facility] 06-27-2024 13:20-0500 Heart rate 59 /min Judie Hurd MD Work Phone: [facility] 06-27-2024 13:20-0500 Respiratory rate 16 /min Judie Hurd MD Work Phone: [facility] 06-27-2024 13:20-0500 SaO2% (BldA) [Mass fraction] 95 % Judie Hurd MD Work Phone: [facility] 06-27-2024 13:20-0500 Systolic blood pressure 124 mm[Hg] Judie Hurd MD Work Phone: [facility] 02-29-2024 13:55-0500 Body height 180.3 cm Judie Hurd MD Work Phone: [facility] 02-29-2024 13:55-0500 Body mass index (BMI) [Ratio] 26.92 kg/m2 Judie Hurd MD Work Phone: [facility] 02-29-2024 13:55-0500 Body weight 87.54 kg Judie Hurd MD Work Phone: [facility] 02-29-2024 13:55-0500 Diastolic blood pressure 64 mm[Hg] Judie Hurd MD Work Phone: [facility] 02-29-2024 13:55-0500 Heart rate 60 /min Judie Hurd MD Work Phone: [facility] 02-29-2024 13:55-0500 Respiratory rate 16 /min Judie Hurd MD Work Phone: [facility] 02-29-2024 13:55-0500 Systolic blood pressure 124 mm[Hg] Judie Hurd MD Work Phone: [facility] Encounters Encounter Date Encounter Type Care Provider Facility Start: 07-11-2024 End: 07-11-2024 ambulatory [facility] Start: 06-27-2024 End: 06-27-2024 Elieser Hurd MD Work Phone: [facility] Start: 06-27-2024 End: 06-27-2024 Elieser Hurd MD Work Phone: [facility] Start: 06-27-2024 End: 06-27-2024 Office outpatient visit 25 minutes Judie Hurd MD Work Phone: [facility] Comment on above: Type 1 diabetes andre itus with hyperglycemia (HCC) (CMS/HCC) (Primary Dx); Insulin long-term use (CMS/HCC); Encounter for dietary consultation; Vitamin D deficiency; Hyperlipemia, mixed (CMS/HCC); Hypoglycemia Start: 06-27-2024 End: 06-27-2024 ambulatory JUDIE HURD Not Available Start: 02-29-2024 End: 02-29-2024 Office outpatient visit 25 minutes Judie Hurd MD Work Phone: [facility] Comment on above: Type 1 diabetes andre itus with hyperglycemia (HCC) (CMS/HCC) (Primary Dx); Insulin long-term use (CMS/HCC); Encounter for dietary consultation; Vitamin D deficiency; Hyperlipemia, mixed (CMS/HCC); Hypoglycemia Start: 02-29-2024 End: 02-29-2024 ambulatory JUDIE HURD Not Available Start: 02-09-2024 End: 02-09-2024 ambulatory [facility] Work Phone: Start: 02-09-2024 End: 02-09-2024 Patient encounter procedure [facility] Work Phone: Start: 12-16-2023 End: 12-16-2023 ambulatory [facility] Work Phone: Start: 12-16-2023 End: 12-16-2023 Patient encounter procedure [facility] Work Phone: Start: 11-16-2023 End: 11-16-2023 ambulatory [facility] Work Phone: Start: 11-16-2023 End: 11-16-2023 Patient encounter procedure [facility] Work Phone: Start: 08-02-2023 End: 08-02-2023 Emergency department patient visit [facility] Start: 07-01-2022 End: 07-02-[address] [...] Start: 08-19-2017 End: 08-20-2017 Ambulatory DEFAULT PHYSICIAN Facility:[facility] Procedures Date Procedure Procedure Detail Performing Clinician Start: 06-27-2024 Gluc bld gluc mntr d ev cleared fda spec home use Judie Hurd MD Work Phone: Start: 02-29-2024 Gluc bld gluc mntr d ev cleared fda spec home use Judie Hurd MD Work Phone: Start: 02-21-2022 PSA screening [facility] Comment on above: Performed By: #### P SAD #### [facility] [address] [place] [address] Dr. Julio Leon Plan of Treatment Date Care Activity Detail Author Start: 12-27-2024 End: 12-27-2024 Patient encounter procedure 12/27/2024 1:00 PM EDT Office Visit [facility] [address] [place] [id number] Judie Hurd MD [address] [place] [address] [facility] Start: 06-27-2024 End: 06-27-2025 25-hydroxyvitamin D3 [Mass/volume] in Serum or Plasma Vitamin D 25 hydroxy Total Lab Routine Type 1 diabetes mellitus with hyperglycemia (HCC) ([facility]) Expected: 06/27/2024 (Approximate), Expires: 06/27/2025 [facility] Comment on above: Expected: 06/27/2024 (Approximate), Expires: 06/27/2025 Start: 06-27-2024 End: 06-27-2025 C-peptide C-peptide Lab Routine Type 1 diabetes mellitus with hyperglycemia (HCC) ([facility]) Expected: 06/27/2024 (Approximate), Expires: 06/27/2025 [facility] Work Phone: Comment on above: Expected: 06/27/2024 (Approximate), Expires: 06/27/2025 Start: 06-27-2024 End: 06-27-2025 Lipid 1996 panel - Serum or Plasma Lipid panel Lab Routine Type 1 diabetes mellitus with hyperglycemia (HCC) ([facility]) Expected: 06/27/2024 (Approximate), Expires: 06/27/2025 [facility] Comment on above: Expected: 06/27/2024 (Approximate), Expires: 06/27/2025 Start: 06-27-2024 End: 06-27-2025 Microalbumin/Creatinin e panel in random Urine Microalbumin / creatinine urine ratio Lab Routine Type 1 diabetes mellitus with hyperglycemia (HCC) ([facility]) Expected: 06/27/2024 (Approximate), Expires: 06/27/2025 [facility] Comment on above: Expected: 06/27/2024 (Approximate), Expires: 06/27/2025 Start: 06-27-2024 End: 06-27-2025 Renal function panel Renal function panel Lab Routine Type 1 diabetes mellitus with hyperglycemia (HCC) ([facility]) Expected: 06/27/2024 (Approximate), Expires: 06/27/2025 [facility] Comment on above: Expected: 06/27/2024 (Approximate), Expires: 06/27/2025 Start: 06-27-2024 End: 06-27-2024 Patient encounter procedure [facility] Comment on above: Arrived Start: 2022 Pneumococcal Vaccine : 65+ Years (1 of 1 - PCV) Pneumococcal Vaccine: 65+ Years (1 of 1 - PCV) [facility] Start: 1955 Screening for malignant neoplasm of colon [facility] Payers Date Payer Category Payer Medicare (Managed Care) [employer] [id number] 2023 Medicare MEDICARE [id number] 2023 Medicare [id number] 2023 Unknown [id number] 1959 Unknown [id number] 1957 Unknown [id number]. 593 1957 Unknown [id number] [id number]. 593 1957 Unknown [id number] [id number]. 593 1957 Unknown [id number] [id number]. 593 1957 Unknown [id number] [id number]. 593 1957 Unknown [id number] [id number]. 593 1957 Unknown [id number] [id number]. 593 1957 Unknown [id number] [id number]. 1287 1957 Unknown [id number] [id number]. 1259 1957 Unknown [id number] [id number]. 1259 Self-pay Self Pay [id number] Unknown Social History Date Type Detail [facility] Start: 1955 Sex Assigned At Male [facility] smoking consumption unknown [facility] Start: 02-11-2024 End: 06-27-2024 Alcoholic beverage intake Current drinker of alcohol (finding) [facility] Start: 1955 Sex assigned at Not on file [facility] Start: 06-27-2024 Gender identity Not on file [facility] Start: 06-27-2024 [facility] Never [facility] tobacco [facility] Start: 06-27-2024 Tobacco use and exposure Smokeless tobacco non-user [facility] Start: 06-27-2024 Alcoholic beverage intake [facility] Goals Date Patient Goal Desired Activity /State Progress note 07-11-2024 Note Date & Type Note Facility 07-11-2024 Note [facility] Subjective Brody West is a 69 y.o. year old male patient being seen for 1 year follow up CAD and hyperlipidemia. Had routine labs with lipid panel last week. Sometimes walks on the treadmill and is able to do so without SOB. Denies chest pain, palpitations, and lightheadedness/syncope. Patient Active Problem List Diagnosis Thoracic spondylosis without myelopathy Dyspnea on exertion Mixed hyperlipidemia Diabetes mellitus type II, non insulin dependent (CMS/HCC) Abnormal stress test Idiopathic progressive polyneuropathy Pain in limb Statin intolerance Coronary artery disease Family History Problem Relation Name Age of Onset ALS Mother Coronary artery disease Father Other (CABG) Father Coronary artery disease Brother Other (CABG) Brother Social History Tobacco Use Smoking status: Never Smokeless tobacco: Never Substance Use Topics Alcohol use: Yes Comment: moderate Drug use: Never HPI Brody West is seen in follow up. He is a 69 y.o. male with history of uncontrolled diabetes. [...] undergo cardiac rehab which he completed successfully. He is currently on combination simvastatin and ezetimibe due to inability to tolerate rosuvastatin or atorvastatin. Currently he is doing well. He has no symptoms of angina or heart failure. His blood pressure and heart rate are well controlled. He reports that he has been exercising at home using the treadmill on and off. No symptoms at all with exertion. Review of Systems Musculoskeletal: Positive for back pain. All other systems reviewed and are negative. Objective Visit Vitals BP 132/70 (BP Location: Right arm, Patient Position: Sitting) Pulse 60 Ht 1.803 m (5' 11 ) Wt 87.5 kg (193 lb) SpO2 97% BMI 26.92 kg/m??? Smoking Status Never BSA 2.09 m??? Physical Exam Constitutional: Appearance: He is well-developed. He is not ill-appearing. HENT: Head: Normocephalic and atraumatic. Nose: Nose normal. Eyes: General: No scleral icterus. Pupils: Pupils are equal, round, and reactive to light. Neck: Thyroid: No thyromegaly. Vascular: No JVD. Cardiovascular: Rate and Rhythm: Normal rate and regular rhythm. Pulses: Radial pulses are 2+ on the right side and 2+ on the left side. Heart sounds: Normal heart sounds. No murmur heard. No friction rub. No gallop. Pulmonary: Effort: Pulmonary effort is normal. No respiratory distress. Breath sounds: Normal breath sounds. No wheezing or rales. Chest: Chest wall: No tenderness. Abdominal: General: Bowel sounds are normal. There is no distension. Palpations: Abdomen is soft. Tenderness: There is no abdominal tenderness. Musculoskeletal: General: No swelling. Cervical back: Neck supple. Skin: General: Skin is warm and dry. Neurological: General: No focal deficit present. Mental Status: He is alert and oriented to person, place, and time. Psychiatric: Mood and Affect: Mood normal. Behavior: Behavior is cooperative. Judgment: Judgment normal. Allergies Allergies Allergen Reactions Atorvastatin myalgias Rosuvastatin myalgias Medications Current Outpatient Medications: aspirin 81 mg EC tablet, Take 81 mg by mouth in the morning., Disp: , Rfl: ezetimibe (Zetia) 10 mg tablet, Take 1 tablet every day by oral route for 30 days., Disp: , Rfl: HumaLOG KwikPen Insulin 100 unit/mL injection pen, PLEASE SEE ATTACHED FOR DETAILED DIRECTIONS, Disp: , Rfl: Lantus Solostar U-100 Insulin 100 unit/mL (3 mL) injection pen, INJECT 26 UNITS SUBCUTANEOUSLY TWICE A DAY, Disp: , Rfl: simvastatin (Zocor) 40 mg tablet, TAKE 1 TABLET BY MOUTH AT BEDTIME, Disp: 90 tablet, Rfl: 3 tadalafil (Cialis) 5 mg tablet, Take 5 mg by mouth in the morning., Disp: , Rfl: evolocumab (Repatha SureClick) 140 mg/mL pen injector, Inject 1 mL under the skin every 14 (fourteen) days., Disp: 2 mL, Rfl: 3 insulin aspart (NovoLOG) 100 unit/mL (3 mL) pen, Inject under the skin before breakfast, before lunch, and before evening meal. Per ISS, Disp: , Rfl: insulin detemir (Levemir FlexTouch U-100 Insuln) 100 unit/mL (3 mL) pen, Inject 27 Units under the skin in the morning and at bedtime., Disp: , Rfl: metFORMIN (Glucophage) 500 mg tablet, Take 500 mg by mouth with breakfast and with evening meal., Disp: , Rfl: rosuvastatin (Crestor) 40 mg tablet, Take 1 tablet (40 mg) (more content not included)... [facility] History of Present illness Narrative 06-27-2024 Judie Hurd MD - 06/27/2024 1:20 PM EST Note Date & Type Note Facility 06-27-2024 History of Presen t illness Narrative Brody West is a 69 [...] 159. We saw him with telemedicine through [employer] today. Interim History 05/16 Followup visit on [...] request from his daughter to come to title closer. He has diabetes since long time. His [...] 1 spray, 2 times daily Continuous Glucose Angle Dozer Operator (Dexcom G7 Angle Dozer Operator) device No dose, route, or frequency recorded. Continuous Glucose Sensor (Dexcom G7 Sensor) [facility] No dose, route, or frequency recorded. ezetimibe [...] Date Dietary counseling and surveillance Hypoglycemia, unspecified jail (current) use of insulin (CMS/HCC) Mixed hyperlipidemia [...] Type 1 diabetes mellitus with hyperglycemia (HCC) ([facility]) - POCT glycosylated hemoglobin (Hb A1C) docked [...] a.m., sliding scale 1 Insulin long-term use ([facility]) Encounter for dietary consultation Vitamin D deficiency Hyperlipemia, mixed ([facility]) Hypoglycemia Follow up in about 6 months (around 12/28/2024). documented in this encounter [facility] History of Present illness Narrative 02-29-2024 Judie Hurd MD - 02/29/2024 1:40 PM EST Note Date & Type Note Facility 02-29-2024 History of Presen t illness Narrative Brody West is a 69 y.o. male Judie Hurd MD presents with chief complaint of Diabetes and Follow-up HPI: Interim History: 02/2024 Follow-up visit on 02/29/2024 for type 1 diabetes. A1c 7.8, bg 195, Currently on lantus 20 units am and around 16 pm, Humalog 3-4-5 or ICR 1:10, and he is off metformin 500 twice a day. CGM 42 AVG 201. Interim History: 11/2023 Follow-up visit on 11/30/2023 for type 1 diabetes. A1c 7.9 on 09/2023, bg 162 in the office,, Currently on lantuis 15 units am and around 10 pm, Humalog 3-4-5 or ICR 1:10, and he is on metformin also 500 twice a day. he got G-dmitrike Interim History: 08/2023 Follow-up visit on 09/15/2023 [...] Levemir 25 twice a day, Humalog either 10/02/10 or sometimes he try to do carb ratio 1:7, and he is on metformin also 500 twice a day. meter 59-417, avg 207 Interim History: 03/2020 Follow-up visit on 04/10/20 for type 1 diabetes. Currently on Levemir 25 twice a day, Humalog either //10 or sometimes he try to do carb ratio 1:7, and he is on metformin also 500 twice a day. no meter today Interim History: 11/2019 Follow-up visit on 12/26/19 for type 1 diabetes. Currently on Levemir 23 twice a day, Humalog either 10/02/ or sometimes he try to do carb ratio 1:7, and he is on metformin also 500 twice a day. meter lowest 36, highest 430, avg 201 Interim History: 07/2019 Follow-up visit on 08/17/19 for type 1 diabetes. Currently on Levemir 23 twice a day (exactly 12 hours apart try to do it), Humalog either 8/ (and average 9 units breakfast, 5 units lunch, 9 units dinner) or sometimes he try to do carb ratio 1:7, and he is on metformin also 500 twice a day. Will send him new prescription. He say average blood sugar is 159. We saw him with telemedicine through [employer] today. Interim History 05/16 Followup visit on [...] request from his daughter to come to title closer. He has diabetes since long time. His [...] in each nostril as directed Continuous Glucose Angle Dozer Operator (Dexcom G7 Angle Dozer Operator) device Does not apply Continuous Glucose Sensor [...] Date Dietary counseling and surveillance Hypoglycemia, unspecified jail (current) use of insulin (CMS/HCC) Mixed hyperlipidemia [...] Type 1 diabetes mellitus with hyperglycemia (HCC) ([facility]) - POCT glucose manually resulted - POCT glycosylated hemoglobin (Hb A1C) docked device We will continue with Lantus 20 units in the morning, 16 at bedtime, Humalog insulin carb ratio 1:10 a.m., sliding scale 1, he is off metformin Insulin long-term use ([facility]) Encounter for dietary consultation Vitamin D deficiency Hyperlipemia, mixed ([facility]) Hypoglycemia Follow up in about 4 months (around 06/28/2024). 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 : Any questions regarding PATIENT CLASS/STATUS should be directed to the Care Management Departments: [facility] [phone] or [facility] [phone] [facility] [phone]. [facility] Clinical Note 03-12-2022 Note Date & Type [...] to that report for further details. [facility] Evaluation note Note Date & Type Note Facility Evaluation note Diagnosis Onset Date Type 2 diabetes mellitus with hyperglycemia [facility] Work Phone: Evaluation note Note Date & Type Note Facility Evaluation note Diagnosis Type 1 diabetes mellitus with hyperglycemia (HCC) ([facility])- Primary Insulin long-term use ([facility]) Encounter for long-term (current) use of insulin Encounter for dietary consultation Vitamin D deficiency Hyperlipemia, mixed ([facility]) Mixed hyperlipidemia Hypoglycemia Hypoglycemia, unspecified documented in this encounter [facility] Evaluation note Note Date & Type Note Facility Evaluation note Diagnosis Type 1 diabetes mellitus with hyperglycemia (HCC) ([facility])- Primary Insulin long-term use ([facility]) Encounter for long-term (current) use of insulin Encounter for dietary consultation Vitamin D deficiency Hyperlipemia, mixed (CMS/HCC) Mixed hyperlipidemia Hypoglycemia Hypoglycemia, unspecified documented in this encounter [facility] Healthcare Summary Purpose Family History No [...] abbagh Reason for Visit Type 2 diabetes adnre itus with hyperglycemia Chief Complaint CGM- new [...] section and content) DATE CREATED AUTHOR 10/15/2017 [facility] DATE CREATED AUTHOR AUTHOR'S ORGANIZ ATION 12/27/2019 [facility] DATE CREATED AUTHOR AUTHOR'S ORGANIZ ATION 07/05/2022 [facility] DATE CREATED AUTHOR AUTHOR'S ORGANIZ ATION 08/08/2023 [facility] DATE CREATED AUTHOR AUTHOR'S ORGANIZ ATION 06/28/2024 [facility] DATE CREATED AUTHOR AUTHOR'S ORGANIZ ATION 07/12/2024 [facility] Care Teams (unrecognized sec tion and content) [...] BE BASED ON THE PRIMARY CLINICAL RECORDS. [facility]. provides no warranty or guarantee of the accuracy or completeness of information in this document.
[2024-09-26 08:57] LABS: Chol HDL Ratio 2.9; Cholesterol 131 mg/dL (<=200); HDL Cholesterol 45 mg/dL (40-60); LDL Cholesterol Calculated 68.8 mg/dL; Triglycerides 86 mg/dL (<=150); VLDL CHOLESTEROL 17.2 mg/dL
== END 2024-09-26 07:44 | disposition home or self-care (01) ==
LOC: LAB 07:46
PROVIDERS: PCP Family Medicine; Visit Provider Internal Medicine Interventional Cardiology
DX: E78.2 Mixed hyperlipidemia (principal)
CPT/HCPCS: 36415; 80061

== ENCOUNTER 2024-12-20 07:15 | Outpatient (OUT) | payer MEDICARE, OTHER, SELFPAY ==
--- OUTSIDE RECORDS SUMMARY | 2024-12-20 07:20 | XMS_ITS | Encounter Summary ---
Author Organization [facility] Address [address] [place] [address] Care Team Providers Care Jacket Changer Name Role Phone Chaz Morelos MD Primary Care Provider [phone] Reason for Visit * Reason Comments Med Refill Encounter Details Date Type Department Care Team (Late st Contact Info) Description 06/07/2023 Refill [facility] [address] [place] [address] Deonte Rojas MD [address] [facility] [address] [facility] [place] [address] Coronary artery disease, unspecified vessel or lesion type, unspecified whether angina present, unspecified whether [place] or transplanted heart Social History Tobacco Use Types Packs/Day Years Used Date Smoking Tobacco: Never Smokeless Tobacco: Never Alcohol Use Standard Drinks/Week Comments Yes 0 (1 standard drink = 0.6 oz pur e alcohol) moderate Sex and Gender Information Value Date Recorded Sex Assigned at Not on file Legal Sex Male 9:09 PM EDT Gender Identity Not on file Sexual Orientation Not on file documented as of this encounter Plan of Treatment Not on file documented as of this encounter Visit Diagnoses Diagnosis Coronary artery disease, unspecified vessel or lesion type, unspecified whether angina present, unspecified whether [place] or transplanted heart documented in this encounter Care Teams Jacket Changer Relationship Specialty Start Date End Date Chaz Morelos MD [address] [facility] [place] [address] PCP - General 01/23/22 documented as of this encounter
--- OUTSIDE RECORDS SUMMARY | 2024-12-20 07:21 | XMS_ITS | CCD ---
Author Organization [facility] Care Team Providers Care Numerical Control Lathe Operator Name Role Phone PHYSICIAN, DEFAULT Unavailable Unavailable [...] HOY ., DR MENDES Primary Care Unavailable DOVER, DR JOSEPH Moyer Consulting Unavailable CELIO, QUINN [...] TOLBERT Consulting Unavailable ELBA SUTTON Attending Unavailable Unavailable Primary Care Provider UnavailJUDIE Piña Attending Unavailable JUDIE HURD Attending Unavailable JUDIE HURD Referring Unavailable MOUKARBDIDI QUINTEROS Attending Unavailable Unavailable Unavailable Unavailable Allergies Allergy Classification Reported Allergen(s) Allergy Type Date of Onset Reaction(s) Facility (2 sources) Sulfonamides (Antibiotic) Drug allergy (disorder) 03-23-2013 [facility] Rep[facility] (1 source) atorvastatin; Translations: [ATORVASTATIN] Drug Allergy 06-26-2023 [facility] (1 source) rosuvastatin; Translations: [ROSUVASTATIN] Drug Allergy 06-26-2023 [facility] Medications Current Medications Medication Drug Class(es) Dates Sig (Normalized) Sig (Original) azelastine hydrochloride 0.137 mg/actuat metered dose nasal spray (5 sources) Histamine-1 Receptor Antagonist take 1 spray(s) nasal route in the morning azelastine (Astelin) 0.1 % nasal spray Administer 1 spray into each nostril in the morning and 1 spray before bedtime. Use in each nostril as directed. Active Continuous Glucose Asphalt Heater Tender (Dexcom G7 Asphalt Heater Tender) device (3 sources) Continuous Glucose Asphalt Heater Tender (Dexcom G7 Asphalt Heater Tender) device Active Continuous Glucose Sensor (Dexcom G7 [...] angina pectoris; Translations: [Atherosclerotic heart disease of [place] coronary artery without angina pectoris] Onset: 2 [...] sources) Long-term current use of insulin; Translations: [MCC (current) use of insulin] 02-29-2024 Episodic Other [...] Test Name Value Interpretation Reference Range Facility Orders Onlyon 09-26-2024 Orders Only [id number] DebimichelleBrody Ha 1955 M Date Provider Department Center 09/26/2024 [id number], [facility] Family History Problem Relation Age of Onset ALS Mother Coronary artery disease Father Other Father Coronary artery disease Brother Other Brother Family Status - Relation Status Age at Mother Father Brother Normal [facility] Office Visiton 07-11-2024 Follow-up visit [id number] DebimichelleBrody Ha 1955 M Date Provider Department Center 07/11/2024 DIDI RODRIGUEZ [facility] Family History Problem Relation Age of Onset ALS Mother Coronary artery disease Father Other Father Coronary artery disease Brother Other Brother Family Status - Relation Status Age at Mother Father Brother Level of Service:[address] [place] OFFICE/OUTPATIENT ESTABLISHED LOW MDM 20 MIN Normal [facility] Glucose (Bld) [Mass/Vol]on 0 06-27-2024 Glucose Blood, POC 135 mg/dL [facility] Interpretation and review of laboratory results Normal [facility] HbA1c (Bld) [Mass fraction]o n 06-27-2024 Interpretation and review of laboratory results Abnormal [facility] Laboratory - Hematology and Cell countson 06-27-2024 HbA1c (Bld) [Mass fraction] 7.6 % [facility] No Panel Informationon 06-27 [facility] Glucose (Bld) [Mass/Vol]Orde red By: Lanie Steen on 02-29-2024 Glucose Blood, POC 195 mg/dL [facility] - Hematology and Cell countson 02-29-2024 HbA1c (Bld) [Mass fraction] 7.8 % [facility] No Panel InformationOrdered By: Lanie Steen on 02-29-2024 [facility] 36on 06-14-2024 36 Patient made aware. Normal [facility] 36on 10-07-2023 36 Patient was unable to [...] even need Leqvio? Please advise. Thanks! Normal [facility] Orders Onlyon 10-07-2023 Orders Only [id number] Brody West 1955 M Date Provider Department Center 10/07/2023 ManinderHENRY AMBROCIO HARJINDER Sanchez Family History Problem Relation Age of Onset ALS Mother Coronary artery disease Father Other Father Coronary artery disease Brother Other Brother Family Status - Relation Status Age at Mother Father Brother [facility] BEDSIDE GLUCOSEon 08-02-2023 Glucose [Mass/Vol] 266 mg/dL High 70-99 [facility] Comment on above: Performed By: #### N PGLU #### Scarlett Reynolds ([id number]) [facility] [address] [place] [address] Glucose [Mass/Vol] 143 mg/dL High 70-99 [facility] Comment on above: Performed By: #### N PGLU #### Scarlett Reynolds ([id number]) [facility] [address] [place] [address] ED PROV NOTEon 08-02-2023 ED PROV NOTE [place] Hand Authentication Interface Message Text [facility] EMERGENCY DEPARTMENT ED Encounter Arrival Date: 08/02/23405 Brody West : 1955 No address on file. CSN: [id number] DAVID: [id number] EMERGENCY DEPARTMENT - GENERAL NOTE CHIEF COMPLAINT Chief Complaint Patient presents with Hypoglycemia HPI Brody West is a 68 year old male who presents hypoglycemic reaction. Patient was acting weird when he woke up his , checked his sugar it was 44. Called EMS. Patient was given orange juice, blood sugar went back up, signed refusal. Shortly thereafter was having a Tuee jelly sandwich and then his blood sugar [...] now REVIEW OF SYSTEMS As per the [facility] PAST MEDICAL HISTORY No past medical [...] presents with Hypoglycemia Differential Diagnosis: Hypoglycemia, sepsis, GA Patient has the following Problem List: There are no problems to display for this patient. External Records: External records reviewed and show: OARRS/INSPECT/MARYANN have not been reviewed for this patient. Work up and therapy ordered during this encounter: Pertinent Labs & Imaging studies reviewed. (See EDCourse for det (more content not included)... Normal [facility] LIPID PROFILEon 07-01-2022 CHOL-HDL RATIO NORM SEE BELOW Normal [facility] Comment on above: Result Comment: 3.3 - 4.4 LOW RISK 4.4 - 7.1 AVERAGE RISK 7.1 - 11.0 MODERATE RISK >11.0 HIGH RISK Performed By: #### L IPID #### [facility] [address] [address] [address] Julio Leon Cholesterol [Mass/Vol] 109 mg/dL Normal <=200 [facility] Comment on above: Performed By: #### L IPID #### [facility] [address] [place], [place] [address] Dr. Julio Leon Cholesterol in HDL [Mass/Vol] 48 mg/dL Normal 40-[address] [facility] Comment on above: Performed By: #### L IPID #### [facility] [address] [place], [place] [address] Dr. Julio Leon Cholesterol in LDL [Mass/Vol] 49.6 mg/dL Normal [facility] Comment on above: Performed By: #### L IPID #### [facility] [address] [address] [address] Julio Leon Cholesterol.total/Nory sterol in HDL [Mass ratio] 2.3 {ratio} Normal [facility] Comment on above: Performed By: #### L IPID #### [facility] [address] [place] [address] Dr. Julio Leon HDL NORMAL > or = 60 mg/dl - LOW CARDIOVASCULAR RISK <40 mg/dl - HIGH CARDIOVASCULAR RISK Normal [facility] Comment on above: Performed By: #### L IPID #### [facility] [address] [place] [address] Dr. Julio Leon LDL CALC NORMAL SEE BELOW Normal [facility] Comment on above: Result Comment: <100 mg/dl OPTIMAL 100 - 129 mg/dl NEAR OR ABOVE OPTIMAL 130 - 159 mg/dl BORDERLINE HIGH 160 - 189 mg/dl HIGH >190 mg/dl VERY HIGH Performed By: #### L IPID #### [facility] [address] [place] [address] Dr. Julio Leon Triglyceride [Mass/Vol] 57 mg/dL Normal <=150 T [facility] Comment on above: Performed By: #### L IPID #### [facility] [address] [place] [address] Dr. Julio Leon VLDL CALC 11.4 mg/dL Normal [facility] Comment on above: Performed By: #### L IPID #### [facility] [address] [address] [address] Julio Leon CBC AUTO DIFFon 03-31-2022 BASO # 0.1 103/ul Normal 0.0-0.[address] [facility] Comment on above: Performed By: #### C BC #### [facility] [address] [place] [address] Dr. Julio Leon Basophils/100 WBC (Bld) 1.4 % Normal 0.2-2.0 [facility] Comment on above: Performed By: #### C BC #### [facility] [address] [place] [address] Dr. Julio Leon EO # 0.1 103/ul Normal 0.0-0.[address] [facility] Comment on above: Performed By: #### C BC #### [facility] [address] [place] [address] Dr. Julio Leon Eosinophils/100 WBC (Bld) 2.0 % Normal 0.9-7.[address] [facility] Comment on above: Performed By: #### C BC #### [facility] [address] [place] [address] Dr. Julio Leon Erythrocyte distribution width (RBC) [Ratio] 12.5 % Normal 11.0-15.[address] [facility] Comment on above: Performed By: #### C BC #### [facility] [address] [place] [address] Dr. Julio eLon Hematocrit (Bld) [Volume fraction] 43.0 % Normal 42.0-54.[address] [facility] Comment on above: Performed By: #### C BC #### [facility] [address] [place] [address] Dr. Julio Leon Hemoglobin (Bld) [Mass/Vol] 14.1 g/dL Normal 14.0-18.[address] [facility] Comment on above: Performed By: #### C BC #### [facility] [address] [place] [address] Dr. Julio Leon IG # 0.01 10e3/ul Normal 0.00-0.[address] [facility] Comment on above: Performed By: #### C BC #### [facility] [address] [place] [address] Dr. Julio Leon IG % 0.2 % Normal 0.0-0.[address] [facility] Comment on above: Performed By: #### C BC #### [facility] [address] [address] [address] Julio Leon LYMPH # 1.4 103/ul Normal 1.2-3.[address] [facility] Comment on above: Performed By: #### C BC #### [facility] [address] [address] [address] Julio Leon Lymphocytes/100 WBC (Bld) 28.1 % Normal 20.5-60.[address] [facility] Comment on above: Performed By: #### C BC #### [facility] [address] [place] [address] Dr. Julio Leon MANUAL DIFF REQ NO Normal [facility] Comment on above: Performed By: #### C BC #### [facility] [address] [place] [address] Dr. Julio Leon MCH (RBC) [Entitic mass] 30.1 pg Normal 25.9-34.[address] [facility] Comment on above: Performed By: #### C BC #### [facility] [address] [place] [address] Dr. Julio Leon MCHC (RBC) [Mass/Vol] 32.8 g/dL Normal 29.9-35.[address] [facility] Comment on above: Performed By: #### C BC #### [facility] [address] [place] [address] Dr. Julio Leon MCV (RBC) [Entitic vol] 91.9 fL Normal 80.0-94.0 [facility] Comment on above: Performed By: #### C BC #### [facility] [address] [place] [address] Dr. Julio Leon MONO # 0.5 103/ul Normal 0.3-0.[address] [facility] Comment on above: Performed By: #### C BC #### [facility] [address] [place] [address] Dr. Julio Leon Monocytes/100 WBC (Bld) 9.8 % Normal 1.7-12.0 [facility] Comment on above: Performed By: #### C BC #### [facility] [address] [address] [address] Julio Leon NEUT # 3.0 103/ul Normal 1.4-6.[address] [facility] Comment on above: Performed By: #### C BC #### [facility] [address] [address] [address] Julio Leon Neutrophils/100 WBC (Bld) 58.5 % Normal 43.0-75.[address] [facility] Comment on above: Performed By: #### C BC #### [facility] [address] [address] [address] Julio Leon Platelet mean volume (Bld) [Entitic vol] 9.6 fL Normal 9.5-13.[address] [facility] Comment on above: Performed By: #### C BC #### [facility] [address] [place] [address] Dr. Julio Leon PLT 267 103/ul Normal 150-[address] [facility] Comment on above: Performed By: #### C BC #### [facility] [address] [place] [address] Dr. Julio Leon RBC 4.68 106/ul Critically low 4.70-6.10 [facility] Comment on above: Performed By: #### C BC #### [facility] [address] [place] [address] Dr. Julio Leon WBC 5.1 103/ul Normal 4.0-11.[address] [facility] Comment on above: Performed By: #### C BC #### [facility] [address] [place] [address] Dr. Julio Leon PROF CHEM 8 (BAS METB)on Anion gap [Moles/Vol] 11.6 mmol/L Normal [facility] Comment on above: Performed By: #### B MP #### [facility] [address] [place] [address] Dr. Julio Leon Calcium [Mass/Vol] 9.3 mg/dL Normal 8.5-10.1 [facility] Comment on above: Performed By: #### B MP #### [facility] [address] [address] [address] Julio Leon Chloride [Moles/Vol] 101 mmol/L Normal 98-107 [facility] Comment on above: Performed By: #### B MP #### [facility] [address] [address] [address] Julio Leon CO2 [Moles/Vol] 27.8 mmol/L Normal 21.0-32.0 [facility] Comment on above: Performed By: #### B MP #### [facility] [address] [address] [address] Julio Leon Creatinine [Mass/Vol] 0.95 mg/dL Normal 0.70-1.30 [facility] Comment on above: Performed By: #### B MP #### [facility] [address] [place] [address] Dr. Julio Leon EGFR-AF GAMBIAN >60 Normal >=60 [facility] Comment on above: Performed By: #### B MP #### [facility] [address] [address] [address] Julio Leon EGFR-NON AF GAMBIAN >60 Normal >=[address] [facility] Comment on above: Performed By: #### B MP #### [facility] [address] [address] [address] Julio Leon Glucose [Mass/Vol] 80 mg/dL Normal 74-106 [facility] Comment on above: Performed By: #### B MP #### [facility] [address] [address] [address] Julio Leon Potassium [Moles/Vol] 4.4 mmol/L Normal 3.5-5.1 [facility] Comment on above: Performed By: #### B MP #### [facility] [address] [address] [address] Julio Leon Sodium [Moles/Vol] 136 mmol/L Normal 136-145 [facility] Comment on above: Performed By: #### B MP #### [facility] [address] [address] [address] Julio Leon Urea nitrogen [Mass/Vol] 14.0 mg/dL Normal 7.0-18.[address] [facility] Comment on above: Performed By: #### B MP #### [facility] [address] [address] [address] Julio Leon Urea nitrogen/Creatinine [Mass ratio] 14.7 mg/mg Normal [facility] Comment on above: Performed By: #### B MP #### [facility] [address] [address] [address] Julio Leon NM STRESS/REST MULTIon 03-12 NM STRESS/REST MULTI Patient: BRODY WEST Exam Date: 03/12/2022 : 1955 Gender:M Ordering : QUINN PICKENS Admission #: [id number] Family : DR CINTHYA MORELOS . Order #: [id number] CLICK HERE TO VIEW EXAM RADIOLOGY REPORT [...] Cramer MD on 03/12/2022 at 14:[address] [facility] ECHOCARDIO M/2D COMPLETEon 1 05-05-2021 ECHOCARDIO M/2D COMPLETE Patient: BRODY WEST Exam Date: 03/05/2022 : 1955 Gender:M Ordering : QUINN NazarioRaquel PICKENS Admission #: [id number] Family : DR CINTHYA MORELOS . Order #: [id number] CLICK HERE TO VIEW EXAM ECHOCARDIOGRAM REPORT [...] Garcia M.D. on 03/05/2022 at 18:[address] [facility] CBC AUTO DIFFon 02-21-2022 BASO # 0.1 103/ul Normal 0.0-0.[address] [facility] Comment on above: Performed By: #### C BC #### [facility] [address] [place] [address] Dr. Julio Leon Basophils/100 WBC (Bld) 1.2 % Normal 0.2-2.0 [facility] Comment on above: Performed By: #### C BC #### [facility] [address] [address] [address] Julio Leon EO # 0.1 103/ul Normal 0.0-0.[address] [facility] Comment on above: Performed By: #### C BC #### [facility] [address] [place] [address] Dr. Julio Leon Eosinophils/100 WBC (Bld) 3.2 % Normal 0.9-7.[address] [facility] Comment on above: Performed By: #### C BC #### [facility] [address] [place] [address] Dr. Julio Leon Erythrocyte distribution width (RBC) [Ratio] 12.7 % Normal 11.0-15.[address] [facility] Comment on above: Performed By: #### C BC #### [facility] [address] [place] [address] Dr. Julio Leon Hematocrit (Bld) [Volume fraction] 39.3 % Critically low 42.0-54.[address] [facility] Comment on above: Performed By: #### C BC #### [facility] [address] [place] [address] Dr. Julio Leon Hemoglobin (Bld) [Mass/Vol] 13.1 g/dL Critically low 14.0-18.[address] [facility] Comment on above: Performed By: #### C BC #### [facility] [address] [place] [address] Dr. Julio Leon IG # 0.01 10e3/ul Normal 0.00-0.[address] [facility] Comment on above: Performed By: #### C BC #### [facility] [address] [place] [address] Dr. Julio Leon IG % 0.2 % Normal 0.0-0.5 [facility] Comment on above: Performed By: #### C BC #### [facility] [address] [place] [address] Dr. Julio Leon LYMPH # 1.3 103/ul Normal 1.2-3.8 [facility] Comment on above: Performed By: #### C BC #### [facility] [address] [place] [address] Dr. Julio Leon Lymphocytes/100 WBC (Bld) 32.4 % Normal 20.5-60.[address] [facility] Comment on above: Performed By: #### C BC #### [facility] [address] [place] [address] Dr. Julio Leon MANUAL DIFF REQ NO Normal [facility] Comment on above: Performed By: #### C BC #### [facility] [address] [place] [address] Dr. Julio Leon MCH (RBC) [Entitic mass] 30.8 pg Normal 25.9-34.[address] [facility] Comment on above: Performed By: #### C BC #### [facility] [address] [place] [address] Dr. Julio Leon MCHC (RBC) [Mass/Vol] 33.3 g/dL Normal 29.9-35.[address] [facility] Comment on above: Performed By: #### C BC #### [facility] [address] [place] [address] Dr. Julio Leon MCV (RBC) [Entitic vol] 92.3 fL Normal 80.0-94.0 [facility] Comment on above: Performed By: #### C BC #### [facility] [address] [place] [address] Dr. Julio Leon MONO # 0.5 103/ul Normal 0.3-0.[address] [facility] Comment on above: Performed By: #### C BC #### [facility] [address] [place] [address] Dr. Julio Leon Monocytes/100 WBC (Bld) 11.2 % Normal 1.7-12.0 [facility] Comment on above: Performed By: #### C BC #### [facility] [address] [place] [address] Dr. Julio Leon NEUT # 2.1 103/ul Normal 1.4-6.[address] [facility] Comment on above: Performed By: #### C BC #### [facility] [address] [place] [address] Dr. Julio Leon Neutrophils/100 WBC (Bld) 51.8 % Normal 43.0-75.[address] [facility] Comment on above: Performed By: #### C BC #### [facility] [address] [address] [address] Julio Leon Platelet mean volume (Bld) [Entitic vol] 10.0 fL Normal 9.5-13.[address] [facility] Comment on above: Performed By: #### C BC #### [facility] [address] [address] [address] Julio Leon PLT 232 103/ul Normal 150-[address] [facility] Comment on above: Performed By: #### C BC #### [facility] [address] [address] [address] Julio Leon RBC 4.26 106/ul Critically low 4.70-6.10 [facility] Comment on above: Performed By: #### C BC #### [facility] [address] [place] [address] Dr. Julio Leon WBC 4.0 103/ul Normal 4.0-11.[address] [facility] Comment on above: Performed By: #### C BC #### [facility] [address] [place] [address] Dr. Julio Leon LIPID PROFILEon 02-21-2022 CHOL-HDL RATIO NORM SEE BELOW Normal [facility] Comment on above: Result Comment: 3.3 - 4.4 LOW RISK 4.4 - 7.1 AVERAGE RISK 7.1 - 11.0 MODERATE RISK >11.0 HIGH RISK Performed By: #### L IPID, TSH, CMP #### [facility] [address] [place] [address] Dr. Julio Leon Cholesterol [Mass/Vol] 132 mg/dL Normal <=200 [facility] Comment on above: Performed By: #### L IPID, TSH, CMP #### [facility] [address] [address] [address] Julio Leon Cholesterol in HDL [Mass/Vol] 46 mg/dL Normal 40-[address] [facility] Comment on above: Performed By: #### L IPID, TSH, CMP #### [facility] [address] [address] [address] Julio Leon Cholesterol in LDL [Mass/Vol] 71.4 mg/dL Normal [facility] Comment on above: Performed By: #### L IPID, TSH, CMP #### [facility] [address] [address] [address] Julio Leon Cholesterol.total/Nory sterol in HDL [Mass ratio] 2.9 {ratio} Normal [facility] Comment on above: Performed By: #### L IPID, TSH, CMP #### [facility] [address] [address] [address] Julio Leon HDL NORMAL > or = 60 mg/dl - LOW CARDIOVASCULAR RISK <40 mg/dl - HIGH CARDIOVASCULAR RISK Normal [facility] Comment on above: Performed By: #### L IPID, TSH, CMP #### [facility] [address] [address] [address] Julio Leon LDL CALC NORMAL SEE BELOW Normal [facility] Comment on above: Result Comment: <100 mg/dl OPTIMAL 100 - 129 mg/dl NEAR OR ABOVE OPTIMAL 130 - 159 mg/dl BORDERLINE HIGH 160 - 189 mg/dl HIGH >190 mg/dl VERY HIGH Performed By: #### L IPID, TSH, CMP #### [facility] [address] [address] [address] Julio Leon Triglyceride [Mass/Vol] 73 mg/dL Normal <=150 T [facility] Comment on above: Performed By: #### L IPID, TSH, CMP #### [facility] [address] [address] [address] Julio Leon VLDL CALC 14.6 mg/dL Normal [facility] Comment on above: Performed By: #### L IPID, TSH, CMP #### [facility] [address] [address] [address] Julio Leon PROF 14(COMP METB)on 022 Albumin [Mass/Vol] 3.7 g/dL Normal 3.4-5.0 [facility] Comment on above: Performed By: #### L IPID, TSH, CMP #### [facility] [address] [address] [address] Julio Leon Albumin/Globulin [Mass ratio] 1.1 {ratio} Normal [facility] Comment on above: Performed By: #### L IPID, TSH, CMP #### [facility] [address] [place] [address] Dr. Julio Leon ALP [Catalytic activity/Vol] 53 U/L Normal 46-[address] [facility] Comment on above: Performed By: #### L IPID, TSH, CMP #### [facility] [address] [place] [address] Dr. Julio Leon ALT [Catalytic activity/Vol] 21 U/L Normal 16-[address] [facility] Comment on above: Performed By: #### L IPID, TSH, CMP #### [facility] [address] [place] [address] Dr. Julio Leon Anion gap [Moles/Vol] 8.8 mmol/L Normal [facility] Comment on above: Performed By: #### L IPID, TSH, CMP #### [facility] [address] [place] [address] Dr. Julio Leon AST [Catalytic activity/Vol] 15 U/L Normal 15-[address] [facility] Comment on above: Performed By: #### L IPID, TSH, CMP #### [facility] [address] [place] [address] Dr. Julio Leon Bilirubin [Mass/Vol] 0.5 mg/dL Normal 0.2-1.[address] [facility] Comment on above: Performed By: #### L IPID, TSH, CMP #### [facility] [address] [place] [address] Dr. Julio Leon Calcium [Mass/Vol] 8.6 mg/dL Normal 8.5-10.1 [facility] Comment on above: Performed By: #### L IPID, TSH, CMP #### [facility] [address] [place] [address] Dr. Julio Leon Chloride [Moles/Vol] 104 mmol/L Normal 98-[address] [facility] Comment on above: Performed By: #### L IPID, TSH, CMP #### [facility] [address] [place] [address] Dr. Julio Leon CO2 [Moles/Vol] 31.3 mmol/L Normal 21.0-32.0 [facility] Comment on above: Performed By: #### L IPID, TSH, CMP #### [facility] [address] [address] [address] Julio Leon Creatinine [Mass/Vol] 1.03 mg/dL Normal 0.70-1.[address] [facility] Comment on above: Performed By: #### L IPID, TSH, CMP #### [facility] [address] [address] [address] Julio Leon EGFR-AF GAMBIAN >60 Normal >=60 [facility] Comment on above: Performed By: #### L IPID, TSH, CMP #### [facility] [address] [address] [address] Julio Leon EGFR-NON AF GAMBIAN >60 Normal >=[address] [facility] Comment on above: Performed By: #### L IPID, TSH, CMP #### [facility] [address] [address] [address] Julio Leon Globulin (S) [Mass/Vol] 3.5 g/dL Normal [facility] Comment on above: Performed By: #### L IPID, TSH, CMP #### [facility] [address] [address] [address] Julio Leon Glucose [Mass/Vol] 78 mg/dL Normal 74-106 [facility] Comment on above: Performed By: #### L IPID, TSH, CMP #### [facility] [address] [address] [address] Julio Leon Potassium [Moles/Vol] 4.1 mmol/L Normal 3.5-5.[address] [facility] Comment on above: Performed By: #### L IPID, TSH, CMP #### [facility] [address] [address] [address] Julio Leon Protein [Mass/Vol] 7.2 g/dL Normal 6.4-8.2 [facility] Comment on above: Performed By: #### L IPID, TSH, CMP #### [facility] [address] [place], [place] [address] Dr. Julio Leon Sodium [Moles/Vol] 140 mmol/L Normal 136-145 [facility] Comment on above: Performed By: #### L IPID, TSH, CMP #### [facility] [address] [place], [place] [address] Dr. Julio Leon Urea nitrogen [Mass/Vol] 12.0 mg/dL Normal 7.0-18.[address] [facility] Comment on above: Performed By: #### L IPID, TSH, CMP #### [facility] [address] [address] [address] Julio Leon Urea nitrogen/Creatinine [Mass ratio] 11.7 mg/mg Normal [facility] Comment on above: Performed By: #### L IPID, TSH, CMP #### [facility] [address] [address] [address] Julio Leon TSHon 02-21-2022 TSH 1.278 uIU/mL Normal 0.358-3.740 [facility] Comment on above: Performed By: #### L IPID, TSH, CMP ####[facility] [address] [place], [place] [address]ItDr. Julio Leon Covid-19 PCR (CVDTB)on 06-26 SARS-CoV-2 (COVID-19) RNA OLIMPIA+probe Ql (Unsp spec) Not detected Normal NOT DETECTED [facility] Comment on above: Result Comment: When diagnostic testing is negative, the possibility of a false negative should be considered in the context of a patient's recent exposures and the presence of clinical signs and symptoms consistent with SARS-CoV-2. This test is not yet approved or cleared by the [place] Food and Drug Administration (FDA). This test was developed by [employer], [place], [place]. The performance characteristics of this test were validated by [facility]. The results are not intended to be used as the sole means for clinical diagnosis or patient management decisions. [facility] is authorized under Clinical Laboratory Improvement [...] for this test is supported by the Superintendent Custodian Janitor of Health and Human Service's declaration that [...] longer be used). Performed By: #### C [facility] ####[facility] [address] [place], [place] [address]Zr. Aparnaomkar Leon Outside Colonoscopyon 2019 Outside Colonoscopy [id number] #1.00CD:127 [facility] Lab Reportson 11-07-2019 Lab Reports [id number] #1.00CD:127 [facility] Consenton 11-03-2019 Consent [id number] #1.00CD:127 [facility] Ambulatory Clinical Summaryo n 10-26-2019 Ambulatory Clinical Summary {[id number]}CD:[id number] [facility] Physician Referralon 020 Physician Referral [id number] #1.00CD:127 [facility] Vital Signs Date Time Vital Sign Value Performing Clinician Faci lity 06-27-2024 13:20-0500 Body height 180.3 cm Judie Hurd MD Work Phone: [facility] 06-27-2024 13:20-0500 Body mass index (BMI) [Ratio] 27.34 kg/m2 Judie Hurd MD Work Phone: [facility] 06-27-2024 13:20-0500 Body weight 88.91 kg Judie Hurd MD Work Phone: [facility] 06-27-2024 13:20-0500 Diastolic blood pressure 70 mm[Hg] Judie Hurd MD Work Phone: [facility] 06-27-2024 13:20-0500 Heart rate 59 /min Judie Hurd MD Work Phone: [facility] 06-27-2024 13:20-0500 Respiratory rate 16 /min Judie Hurd MD Work Phone: [facility] 06-27-2024 13:20-0500 SaO2% (BldA) [Mass fraction] 95 % Judie Hurd MD Work Phone: [facility] 06-27-2024 13:20-0500 Systolic blood pressure 124 mm[Hg] Judie Hurd MD Work Phone: [facility] 02-29-2024 13:55-0500 Body height 180.3 cm Judie Hurd MD Work Phone: [facility] 02-29-2024 13:55-0500 Body mass index (BMI) [Ratio] 26.92 kg/m2 Judie Hurd MD Work Phone: [facility] 02-29-2024 13:55-0500 Body weight 87.54 kg Judie Hurd MD Work Phone: [facility] 02-29-2024 13:55-0500 Diastolic blood pressure 64 mm[Hg] Judie Hurd MD Work Phone: [facility] 02-29-2024 13:55-0500 Heart rate 60 /min Judie Hurd MD Work Phone: [facility] 02-29-2024 13:55-0500 Respiratory rate 16 /min Judie Hurd MD Work Phone: [facility] 02-29-2024 13:55-0500 Systolic blood pressure 124 mm[Hg] Judie Hurd MD Work Phone: [facility] Healthcare Encounters Encounter Date Encounter Type Care Provider Facility Start: 07-11-2024 End: 07-11-[address] [facility] Start: 06-27-2024 End: 06-27-2024 Bamboo flowsheet Judie Hurd MD Work Phone: [facility] Start: 06-27-2024 End: 06-27-2024 Bamboo flowsheet Judie Hurd MD Work Phone: [facility] Start: 06-27-2024 End: 06-27-2024 Office outpatient visit 25 minutes Judie Hurd MD Work Phone: [facility] Comment on above: Type 1 diabetes andre itus with hyperglycemia (HCC) (CMS/HCC) (Primary Dx); Insulin long-term use (CMS/HCC); Encounter for dietary consultation; Vitamin D deficiency; Hyperlipemia, mixed (CMS/HCC); Hypoglycemia Start: 06-27-2024 End: 06-27-2024 ambulatory JUDIE HURD Not Available Start: 02-29-2024 End: 02-29-2024 Office outpatient visit 25 minutes Judie Hurd MD Work Phone: [facility] Comment on above: Type 1 diabetes andre itus with hyperglycemia (HCC) (CMS/HCC) (Primary Dx); Insulin long-term use (CMS/HCC); Encounter for dietary consultation; Vitamin D deficiency; Hyperlipemia, mixed (CMS/HCC); Hypoglycemia Start: 02-29-2024 End: 02-29-2024 ambulatory JUDIE HURD Not Available Start: 02-09-2024 End: 02-09-2024 ambulatory [facility] Work Phone: Start: 02-09-2024 End: 02-09-2024 Patient encounter procedure [facility] Work Phone: Start: 12-16-2023 End: 12-16-2023 ambulatory [facility] Work Phone: Start: 12-16-2023 End: 12-16-2023 Patient encounter procedure [facility] Work Phone: Start: 11-16-2023 End: 11-16-2023 ambulatory [facility] Work Phone: Start: 11-16-2023 End: 11-16-2023 Patient encounter procedure [facility] Work Phone: Start: 08-02-2023 End: 08-02-2023 Emergency department patient visit [facility] Start: 07-01-2022 End: 07-02-[address] [...] Start: 08-19-2017 End: 08-20-2017 Ambulatory DEFAULT PHYSICIAN Facility:[facility] Procedures Date Procedure Procedure Detail Performing Clinician Start: 06-27-2024 Gluc bld gluc mntr d ev cleared fda spec home use Judie Hurd MD Work Phone: Start: 02-29-2024 Gluc bld gluc mntr d ev cleared fda spec home use Judie Hurd MD Work Phone: Start: 02-21-2022 PSA screening [facility] Comment on above: Performed By: #### P SAD #### [facility] [address] [place] [address] Dr. Julio Leon Plan of Treatment Date Care Activity Detail Author Start: 12-27-2024 End: 12-27-2024 Patient encounter procedure 12/27/2024 1:00 PM EDT Office Visit [facility] [address] [place] [id number] Judie Hurd MD [address] [place] [address] [facility] Start: 06-27-2024 End: 06-27-2025 25-hydroxyvitamin D3 [Mass/volume] in Serum or Plasma Vitamin D 25 hydroxy Total Lab Routine Type 1 diabetes mellitus with hyperglycemia (HCC) ([facility]) Expected: 06/27/2024 (Approximate), Expires: 06/27/2025 [facility] Comment on above: Expected: 06/27/2024 (Approximate), Expires: 06/27/2025 Start: 06-27-2024 End: 06-27-2025 C-peptide C-peptide Lab Routine Type 1 diabetes mellitus with hyperglycemia (HCC) ([facility]) Expected: 06/27/2024 (Approximate), Expires: 06/27/2025 [facility] Work Phone: Comment on above: Expected: 06/27/2024 (Approximate), Expires: 06/27/2025 Start: 06-27-2024 End: 06-27-2025 Lipid 1996 panel - Serum or Plasma Lipid panel Lab Routine Type 1 diabetes mellitus with hyperglycemia (HCC) ([facility]) Expected: 06/27/2024 (Approximate), Expires: 06/27/2025 [facility] Comment on above: Expected: 06/27/2024 (Approximate), Expires: 06/27/2025 Start: 06-27-2024 End: 06-27-2025 Microalbumin/Creatinin e panel in random Urine Microalbumin / creatinine urine ratio Lab Routine Type 1 diabetes mellitus with hyperglycemia (HCC) ([facility]) Expected: 06/27/2024 (Approximate), Expires: 06/27/2025 [facility] Comment on above: Expected: 06/27/2024 (Approximate), Expires: 06/27/2025 Start: 06-27-2024 End: 06-27-2025 Renal function panel Renal function panel Lab Routine Type 1 diabetes mellitus with hyperglycemia (HCC) (CMS/HCC) Expected: 06/27/2024 (Approximate), Expires: 06/27/2025 [facility] Comment on above: Expected: 06/27/2024 (Approximate), Expires: 06/27/2025 Start: 06-27-2024 End: 06-27-2024 Patient encounter procedure [facility] Comment on above: Arrived Start: 2022 Pneumococcal Vaccine : 65+ Years (1 of 1 - PCV) Pneumococcal Vaccine: 65+ Years (1 of 1 - PCV) [facility] Start: 1955 Screening for malignant neoplasm of colon [facility] Healthcare Payers Date Payer Category Payer Medicare (Managed Care) [facility] MEDICARE [id number] 2023 Medicare MEDICARE [id number] 2023 Medicare [id number] 2023 Unknown [id number] 1959 Unknown [id number] 1957 Unknown [id number] [id number]. 593 1957 Unknown [id number] 2.16.840.1.800073.3.579.2. 593 1957 Unknown [id number] 2.16.840.1.909179.3.579.2. 593 1957 Unknown [id number] [id number]. 593 1957 Unknown [id number] [id number]. 593 1957 Unknown [id number] [id number]. 593 1957 Unknown [id number] [id number]. 593 1957 Unknown [id number] 2.16.840.1.141141.3.579.2. 1287 1957 Unknown [id number] [id number]. 1259 1957 Unknown [id number] [id number]. 1259 Self-pay Self Pay [id number] Unknown Social History Date Type Detail Facility Tobacco smoking stat us NMIS Unknown if ever smoked [facility] Start: 1955 Sex Assigned At Male F [facility] smoking consumption unknown [facility] Start: 02-11-2024 End: 06-27-2024 Alcoholic beverage intake Current drinker of alcohol (finding) [facility] Start: 1955 Sex assigned at Not on file [facility] Start: 06-27-2024 Gender identity Not on file [facility] Start: 06-27-2024 Tobacco smoking stat us NMIS Never smoked tobacco [facility] Start: 06-27-2024 Tobacco use and exposure Smokeless tobacco non-user [facility] Start: 06-27-2024 Alcoholic beverage intake [facility] Goals Date Patient Goal Desired Activity /State Progress note 07-11-2024 Note Date & Type Note Facility 07-11-2024 Note [place] Cardiology - [facility] Subjective [place] is a 69 [...] tablet (40 mg) (more content not included)... [facility] History of Present illness Narrative 06-27-2024 Judie [...] 159. We saw him with telemedicine through [employer] today. 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 His [...] 1 spray, 2 times daily Continuous Glucose Asphalt Heater Tender (Dexcom G7 Asphalt Heater Tender) device No dose, route, or frequency recorded. Continuous Glucose Sensor (Dexcom G7 Sensor) misc No dose, route, or frequency recorded. 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 (CMS/HCC) Mixed hyperlipidemia (CMS/HCC) Overweight Type 1 diabetes mellitus with hyperglycemia (HCC) ([facility]/HCC) Type 2 diabetes mellitus with other diabetic [...] Type 1 diabetes mellitus with hyperglycemia (HCC) ([facility]) - POCT glycosylated hemoglobin (Hb A1C) docked [...] a.m., sliding scale 1 Insulin long-term use ([facility]) Encounter for dietary consultation Vitamin D deficiency Hyperlipemia, mixed ([facility]) Hypoglycemia Follow up in about 6 months [...] Levemir 25 twice a day, Humalog either /8/10 or sometimes he try to do carb ratio 1:7, and he is on metformin also 500 twice a day. meter 59-417, avg 207 Interim History: 03/2020 Follow-up visit on 04/10/20 for type 1 diabetes. Currently on Levemir 25 twice a day, Humalog either /8/10 or sometimes he try to do carb ratio 1:7, and he is on metformin also 500 twice a day. no meter today Interim History: 11/2019 Follow-up visit on 12/26/19 for type 1 diabetes. Currently on Levemir 23 twice a day, Humalog either /8/10 or sometimes he try to do carb ratio 1:7, and he is on metformin also 500 twice a day. meter lowest 36, highest 430, avg 201 Interim History: 07/2019 Follow-up visit on 08/17/19 for type 1 diabetes. Currently on Levemir 23 twice a day (exactly 12 hours apart try to do it), Humalog either 10/02/10 (and average 9 units breakfast, 5 units lunch, 9 units dinner) or sometimes he try to do carb ratio 1:7, and he is on metformin also 500 twice a day. Will send him new prescription. He say average blood sugar is 159. We saw him with telemedicine through [employer] today. 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 His [...] in each nostril as directed Continuous Glucose Asphalt Heater Tender (Dexcom G7 Asphalt Heater Tender) device Does not apply Continuous Glucose Sensor [...] Date Dietary counseling and surveillance Hypoglycemia, unspecified MCC (current) use of insulin (CMS/HCC) Mixed hyperlipidemia [...] Type 1 diabetes mellitus with hyperglycemia (HCC) ([facility]) - POCT glucose manually resulted - POCT glycosylated hemoglobin (Hb A1C) docked device We will continue with Lantus 20 units in the morning, 16 at bedtime, Humalog insulin carb ratio 1:10 a.m., sliding scale 1, he is off metformin Insulin long-term use ([facility]) Encounter for dietary consultation Vitamin D deficiency Hyperlipemia, mixed ([facility]) Hypoglycemia Follow up in about 4 months (around 06/28/2024). documented in this encounter [facility] Progress note 08-02-2023 Note Date & Type Note Facility 08-02-2023 Note [facility] [employer] Authen tication Interface Message Text CURRENT STATUS IS EMERGENCY . : Any questions regarding PATIENT CLASS/STATUS should be directed to the Care Management Departments: [facility] [phone] or [facility] [phone] or [facility] [phone]. [facility] Clinical Note 03-12-2022 Note Date & [...] to that report for further details. [facility] Evaluation note Note Date & Type Note Facility Evaluation note Diagnosis Onset Date Type 2 diabetes mellitus with hyperglycemia [place] Work Phone: Evaluation note Note Date & Type Note Facility Evaluation note Diagnosis Type 1 diabetes mellitus with hyperglycemia (HCC) ([facility])- Primary Insulin long-term use ([facility]) Encounter for long-term (current) use of insulin Encounter for dietary consultation Vitamin D deficiency Hyperlipemia, mixed ([facility]) Mixed hyperlipidemia Hypoglycemia Hypoglycemia, unspecified documented in this encounter [facility] Evaluation note Note Date & Type Note Facility Evaluation note Diagnosis Type 1 diabetes mellitus with hyperglycemia (HCC) ([facility])- Primary Insulin long-term use ([facility]) Encounter for long-term (current) use of insulin Encounter for dietary consultation Vitamin D deficiency Hyperlipemia, mixed ([facility]) Mixed hyperlipidemia Hypoglycemia Hypoglycemia, unspecified documented in this encounter [facility] Summary Purpose Family History No Family History Records FoundNo Family History Records FoundNo Family History Records FoundNo Family History Records FoundNo Family History Records FoundNo Family History Records Found Advance Directives No Advanced Directives Records Found Advance Directive Response Recorded Date/ Time Advance Directives No August 18 018 11:58am Assessments No Assessments Information Available [...] section and content) DATE CREATED AUTHOR 10/15/2017 [facility] DATE CREATED AUTHOR AUTHOR'S ORGANIZ ATION 12/27/2019 [place] DATE CREATED AUTHOR AUTHOR'S ORGANIZ ATION 07/05/2022 [facility] DATE CREATED AUTHOR AUTHOR'S ORGANIZ ATION 08/08/2023 [facility] DATE CREATED AUTHOR AUTHOR'S ORGANIZ ATION 06/28/2024 [facility] EPIC DATE CREATED AUTHOR AUTHOR'S ORGANIZ ATION 09/30/2024 [facility] Care Teams (unrecognized sec tion and content) [...] BE BASED ON THE PRIMARY CLINICAL RECORDS. [facility]. provides no warranty or guarantee of the accuracy or completeness of information in this document.
[2024-12-20 08:15] LABS: Albumin Level 4.1 g/dL (3.4-5.0); Anion Gap 12.4; Blood Urea Nitrogen 13.0 mg/dL (7.0-18.0); Calcium 9.1 mg/dL (8.5-10.1); Carbon Dioxide 27.8 mmol/L (21.0-32.0); Chloride 103 mmol/L (98-107); Cholesterol 138 mg/dL (<=200); Estimated GFR (African America >60 (>=60 mL/min/1.73m^2); Estimated GFR (Non-African Ame >60 (>=60 mL/min/1.73m^2); Glucose 168 mg/dL (74-106); HDL Cholesterol 55 mg/dL (40-60); Potassium 4.2 mmol/L (3.5-5.1); Sodium 139 mmol/L (136-145); Triglycerides 61 mg/dL (<=150); VLDL CHOLESTEROL 12.2 mg/dL
[2024-12-20 11:03] LABS: Microalbum Creatinine Ratio Ur 15.4 mg/g (0.0-29.9)
== END 2024-12-20 07:16 | disposition home or self-care (01) ==
LOC: LAB 07:17
PROVIDERS: PCP Family Medicine; Visit Provider Internal Medicine
DX: E10.65 Type 1 diabetes mellitus with hyperglycemia (principal)
CPT/HCPCS: 36415; 80061; 80069; 82043; 82306; 82570; 84681

== ENCOUNTER 2025-01-23 13:40 | Outpatient (RCR) | payer MEDICARE, OTHER, SELFPAY ==
[2025-01-23 13:44] VITALS: BP 147/75; PULSE 73; TEMP 36.9; O2SAT 94
[2025-01-23] MEDS: INCLISIRAN SODIUM 284 MG/1.5 ML SYRINGE SQ (13:49)
== END 2025-01-24 23:59 | disposition home or self-care (01) ==
LOC: INF 13:40
PROVIDERS: PCP Family Medicine; Visit Provider Internal Medicine Interventional Cardiology
DX: I25.10 Atherosclerotic heart disease of native coronary artery without angina pectoris (principal); E78.5 Hyperlipidemia, unspecified
CPT/HCPCS: 96372; J1306

== ENCOUNTER 2025-04-24 13:55 | Outpatient (RCR) | payer MEDICARE, OTHER, SELFPAY ==
[2025-04-24 13:50] VITALS: BP 141/79; PULSE 62; TEMP 35.9; O2SAT 98
[2025-04-24] MEDS: INCLISIRAN SODIUM 284 MG/1.5 ML SYRINGE SQ (14:03)
== END 2025-04-26 23:59 | disposition home or self-care (01) ==
LOC: INF 13:55
PROVIDERS: PCP Family Medicine; Visit Provider Internal Medicine Interventional Cardiology
DX: E78.5 Hyperlipidemia, unspecified (principal); I25.10 Atherosclerotic heart disease of native coronary artery without angina pectoris
CPT/HCPCS: 96372; J1306